=== PATIENT | female | born 1985 | race Caucasian/White ===

== ENCOUNTER 2016-08-09 12:22 | Emergency (ER) | payer OTHER ==
[~2016-08-09 12:22] MED LIST: ELIQ5TAB PO; TIZA2CAP3 PO; TOPI25CA PO
--- NOTE | 2016-08-09 14:46 | REP ---
Chest x-ray: Two views. History: Chest pain. . Comparison study: June 27, 2016 . Findings: The lungs are well inflated and free of infiltrate. The pleural angles are sharp. The heart size is normal. Pulmonary vasculature is not increased. No significant bony abnormality is seen. Impression: Negative chest x-ray. Signed by Loki Pacheco MD 08/09/2016 02:37 P
[2016-08-09 14:50] LABS: BASO # 0.1 K/mm3 (0.0-0.2); BASO % 0.9 % (0.0-1.0); EOS # 0.1 K/mm3 (0.0-0.50); EOS % 1.1 % (0.0-3.0); LARGE UNSTAINED CELL # 0.1 K/mm3 (0.0-0.4); LARGE UNSTAINED CELL % 1.2 % (0.0-4.0); LYMPH % 17.7 % (24.0-44.0); MEAN CORPUSCULAR HEMOGLOBIN 26.9 pg (27.0-33.0); MONO # 0.4 K/mm3 (0.0-0.8); MONO % 3.5 % (0.0-5.0); NEUTROPHILS # 8.2 K/mm3 (1.8-7.7); NEUTROPHILS % 75.7 % (36.0-66.0); PLATELET COUNT, AUTOMATED 312 k/mm3 (150-450); RED CELL DISTRIBUTION WIDTH 14.6 % (11.5-14.5); WHITE BLOOD COUNT 10.9 K/mm3 (4.0-10.0)
[2016-08-09 15:20] LABS: ANION GAP 9 MEQ/L (8-16); BLOOD UREA NITROGEN 10 MG/DL (7-18); CALCIUM LEVEL 8.9 MG/DL (8.5-10.1); CARBON DIOXIDE LEVEL 27 MEQ/L (21-32); CHLORIDE LEVEL 105 MEQ/L (98-107); CREATININE FOR GFR 0.66 MG/DL (0.55-1.02); GLOMERULAR FILTRATION RATE > 60.0 (>60); GLUCOSE, FASTING 84 MG/DL (70-105); POTASSIUM SERUM 3.7 MEQ/L (3.5-5.1); SODIUM LEVEL 141 MEQ/L (136-145)
[2016-08-09] MEDS ORDERED: fentaNYL 100 MCG/2 ML INJECTION (J3010) As Ordered ONE (15:30)
[2016-08-09] MEDS ORDERED: NORCO 5/325MG TABLET (BULK) As Ordered ONE (18:14)
--- NOTE | 2016-08-09 18:28 | EDDOCDS ---
Physician Documentation [facility] Name: Phyllis Kim Age: 30 yrs Sex: Female : 1985 Arrival Date: 08/09/2016 Time: 12:22 Bed I Private MD: Lu Dean E Disposition: 08/09 18:10 Critical Care: Critical care not applicable. le 18:11 A printed prescription for a controlled substance(s) was provided because [facility] is not able to accept EPCS. Disposition: 08/09/16 18:07 Discharged to Home/Self Care. Impression: Other chest pain. - Condition is Stable. - Discharge Instructions: Nonspecific Chest Pain, Pain Without a Known Cause. - Prescriptions for [place] 5- 325 mg Oral Tablet - take 1 tablet by ORAL route every 6 hours As needed MDD: 4 tabs; 6 tablet. - Medication Reconciliation, Local Pharmacy Hours form. - Follow up: Lu Dean; When: Call to arrange an appointment; Reason: Recheck today's complaints, Continuance of care. Follow up: Iogr Harding; When: Call to arrange an appointment; Reason: Recheck today's complaints, Continuance of care. - Problem is new. - Symptoms have improved. - Notes: Keep hydrated Return to the ED for any further concerns Historical: - Allergies: Bees; IVP dyeblurry vision, nausea and racing heart; Latex (Rash); Percocetdizzy, hot and nauseated; - Home Meds: 1. Advair Diskus Inhl 2 puff 2 times per day (Last dose: 08/09/2016 09:00) 2. albuterol sulfate 90 mcg/actuation Inhl HFAA 2 puffs every 4-6 hours (Last dose: 08/09/2016 11:00) 3. Eliquis 5 mg oral tab 1 tab 2 times per day - PMHx: Asthma; Concussion; Migraine Headaches; PE (March 21, 2016); - PSHx: none; - Social history: Smoking status: Patient states was never smoker of tobacco. No barriers to communication noted, The patient speaks fluent Greenlandic, Speaks appropriately for age. - Family history: Not pertinent. - : The pt / caregiver states he / she is on anticoagulants: Eliquis Home medication list is obtained from the patient. - Exposure Risk Screening:: None identified. NOTCHER: 12:31 LMP 07/16/2016 srm Vital Signs: 12:24 BP 104 / 77; Pulse 96; Resp 18 S; Temp 97.9(O); Pulse Ox 100% on R/A; Weight 74.84 kg / gr2 164.99 lbs (R); Height 5 ft. 4 in. (162.56 cm) (R); Pain 6/10; 15:56 BP 114 / 69; Pulse 64; Resp 18; Temp 98.1; Pulse Ox 99% ; Pain 4/10; jam1 15:57 Pain 4/10; dsf 18:24 BP 110 / 73; Pulse 98; Resp 18; Temp 99.4(O); Pulse Ox 99% on R/A; Pain 3/10; kc3 12:24 Body Mass Index 28.32 (74.84 kg, 162.56 cm) gr2 MDM: 12:33 ECG WITH READING ER PHYS+CARDIAG ordered. EDMS 14:01 Chest, 2 View (pa\E\lat) Ordered. EDMS 14:13 IV Saline Lock ordered. le 14:13 Undress patient appropriately for examination ordered. le 14:13 fentaNYL (PF) 25 mcg IVP once ordered. le 14:13 Basic Metabolic Profile Ordered. EDMS 14:13 CBC with Diff Ordered. EDMS 14:13 Cardiac Injury Profile Ordered. EDMS 14:13 D-Dimer Quant Ordered. EDMS 14:13 Troponin Ordered. EDMS 15:36 CBC with Diff Reviewed. le 15:36 Basic Metabolic Profile Reviewed. le 15:36 Cardiac Injury Profile Reviewed. le 15:36 Troponin Reviewed. le 15:36 Chest, 2 View (pa\E\lat) Reviewed. le 15:38 Misc. Nursing Order ordered. le 15:39 Financial registration complete. gjb 16:15 [facility] Payment Agreement was scanned into [employer] and attached to record. gjb 17:04 D-Dimer Quant Reviewed. le 18:11 HYDROcodone-acetaminophen 4 pack- 5 mg-325 mg 1 packets PO Per package directions; le Dispense with patient. 1 po q4h prn for pain ordered. Administered Medications: 15:36 Drug: fentaNYL (PF) 25 mcg [fentanyl (PF) 50 mcg/mL injection solution (0.5 mL)] Route: dsf IVP; Site: right antecubital; 15:57 Follow up: Pain 4/10 Adult; see charted VS dsf Signatures: Dispatcher [employer] Betzaida Painting RN RN Saundra Lopes, PASSENGER BOOKING CLERK PASSENGER BOOKING CLERK Carolee Greene RN RN kc3 Dalia Hernandez Desiree RN dsf The chart was reviewed and I authenticate all verbal orders and agree with the evaluation and treatment provided.Corrections: (The following items were deleted from the chart) 15:37 14:13 Furniture Upholsterer/Pulse Ox/q 30 min VS ordered. mya roque 15:37 14:13 Rhythm Strip to chart ordered. mya roque Attachments: 16:15 [facility] Payment Agreement sandra MTDD
--- NOTE | 2016-08-09 18:28 | EDDOCDS ---
Nurse's Notes [facility] Name: Phyllis Kim Age: 30 yrs Sex: Female : 1985 Arrival Date: 08/09/2016 Time: 12:22 Bed I9 Private MD: Lu Dean E Diagnosis: Other chest pain Presentation: 08/09 12:29 Presenting complaint: Patient states: left sided chest , ribs, back hurts when takes a srm deep breath. took advair and rescue inhaler to help. symptoms started 2 hours ago. Aspirin was not taken prior to arrival. Adult Sepsis Screening: The patient does not have new or worsening altered mentation. Patient's respiratory rate is less than 22. Systolic blood pressure is greater than 100. Patient has a qSOFA score of 0- Negative Sepsis Screen. Suicide/Homicide risk assessment- the patient denies having any suicidal and/or homicidal ideations and does not present with any other emotional, behavioral or mental health complaints. Status: The patient is a dependent. Transition of care: patient was not received from another setting of care. 12:29 Acuity: STEPHIE Level 3 srm 12:29 Method Of Arrival: Walkin/Carried/Asstd srm Triage Assessment: 12:31 General: Appears in no apparent distress, Behavior is appropriate for age, cooperative. srm Pain: Pain currently is 6 out of 10 on a pain scale. HIV screening NA for this visit Offered previously. Cardiovascular: Chest pain is described as Pain is 6 out of 10 on a pain scale. radiates episodes are continuous began 2 hours prior to arrival. HEALTHCARE CONSULTANT: 12:31 LMP 07/16/2016 srm Historical: - Allergies: Bees; IVP dyeblurry vision, nausea and racing heart; Latex (Rash); Percocetdizzy, hot and nauseated; - Home Meds: 1. Advair Diskus Inhl 2 puff 2 times per day (Last dose: 08/09/2016 09:00) 2. albuterol sulfate 90 mcg/actuation Inhl HFAA 2 puffs every 4-6 hours (Last dose: 08/09/2016 11:00) 3. Eliquis 5 mg oral tab 1 tab 2 times per day - PMHx: Asthma; Concussion; Migraine Headaches; PE (March 21, 2016); - PSHx: none; - Social history: Smoking status: Patient states was never smoker of tobacco. No barriers to communication noted, The patient speaks fluent Hungarian, Speaks appropriately for age. - Family history: Not pertinent. - : The pt / caregiver states he / she is on anticoagulants: Eliquis Home medication list is obtained from the patient. - Exposure Risk Screening:: None identified. Screenin:57 Screening information is obtained from the patient. Primary language is Hungarian. Fall jam1 risk: No risks identified. Assistance ADL's: requires no assistance with activities of daily living. Abuse/DV Screen: The patient / caregiver reports he/she is: not in a situation that causes fear, pain or injury. Nutritional screening: No deficits noted. Exposure Risk Screening: None identified. Advance Directives: Currently, there is no health care proxy. There is no active DNR order. There is no living will. There is no Power of Dynamics Ax Developer. Advance directive information has not previously been placed in an [facility] medical record. Further advance directive information is declined. home support is adequate. Assessment: 13:44 General: Appears uncomfortable, Behavior is appropriate for age, cooperative. Pain: dsf Location: left anterior chest wall Pain currently is 6 out of 10 on a pain scale. Pain radiates to left arm, back and left shoulder Quality of pain is described as pressure. Neurological: Level of Consciousness is awake, alert, Oriented to person, place, time. Cardiovascular: Capillary refill < 3 seconds Heart tones S1 S2 present Rhythm is regular. Respiratory: Airway is patent Respiratory effort is even, unlabored, Respiratory pattern is regular, symmetrical, Breath sounds are clear bilaterally. Reports pain with respiration since today. GI: Abdomen is non- distended Bowel sounds present X 4 quads. Abd is soft and non tender X 4 quads. Denies nausea. Derm: Skin is pink, warm & dry. 15:38 Adult Sepsis Screening: The patient does not have new or worsening altered mentation. dsf Patient's respiratory rate is less than 22. Systolic blood pressure is greater than 100. Patient has a qSOFA score of 0- Negative Sepsis Screen. General: Appears in no apparent distress, Behavior is appropriate for age, cooperative. Neurological: Level of Consciousness is awake, alert. Cardiovascular: Capillary refill < 3 seconds. Respiratory: Airway is patent Respiratory effort is even, unlabored, Respiratory pattern is regular, symmetrical. Derm: Skin is pink, warm & dry. 16:23 General: Appears in no apparent distress, Behavior is appropriate for age, cooperative. dsf Pain: Pain currently is 2 out of 10 on a pain scale. Neurological: Level of Consciousness is awake, alert. Cardiovascular: Capillary refill < 3 seconds. Respiratory: Airway is patent Respiratory effort is even, unlabored, Respiratory pattern is regular, symmetrical, Reports pain with respiration. Derm: Skin is pink, warm & dry. 17:36 Reassessment: patient states her pain is still 3/10 - lights down for patient comfort. kcs Respirations easy.. 18:23 General: Appears in no apparent distress, comfortable, Behavior is appropriate for age, kc3 cooperative. Pain: Pain currently is 3 out of 10 on a pain scale. Neurological: Level of Consciousness is awake, alert, obeys commands, Oriented to person, place, time. Respiratory: Respiratory effort is even, unlabored, Respiratory pattern is regular, symmetrical. Derm: Skin is pink, warm & dry. Vital Signs: 12:24 BP 104 / 77; Pulse 96; Resp 18 S; Temp 97.9(O); Pulse Ox 100% on R/A; Weight 74.84 kg gr2 (R); Height 5 ft. 4 in. (162.56 cm) (R); Pain 6/10; 15:56 BP 114 / 69; Pulse 64; Resp 18; Temp 98.1; Pulse Ox 99% ; Pain 4/10; jam1 15:57 Pain 4/10; dsf 18:24 BP 110 / 73; Pulse 98; Resp 18; Temp 99.4(O); Pulse Ox 99% on R/A; Pain 3/10; kc3 12:24 Body Mass Index 28.32 (74.84 kg, 162.56 cm) gr2 Vitals: 12:24 Log In Time: August 09, 2016 at 12:24. gr2 ED Course: 12:23 Patient visited by Roberto Olvera. gr2 12:23 Patient moved to Waiting gr2 12:24 Lu Dean is Private Physician. gr2 12:25 Patient visited by Roberto Olvera. gr2 12:25 Patient moved to Pre RCE gr2 12:30 Triage Initiated srm 12:32 Patient moved to PD srm 12:39 EKG done. (by ED staff). Reviewed by Justen Nunez MD. ar3 12:42 Patient visited by Darren Carrillo PCA. mdr 12:43 Patient visited by Juli Singh PCA. ar3 12:45 Patient moved to Pre RCE mb9 13:28 Saundra Griffith FNP is PHCP. le 13:30 Patient moved to I9 srm 13:45 Patient visited by Flavia Muir RN. dsf 14:02 Patient visited by Saundra Griffith FNP. le 14:02 Patient visited by Saundra Griffith FNP. le 14:40 Basic Metabolic Profile Sent. jf3 14:40 CBC with Diff Sent. jf3 14:40 Cardiac Injury Profile Sent. jf3 14:40 D-Dimer Quant Sent. jf3 14:40 Troponin Sent. jf3 14:53 Chest, 2 View (pa\E\lat) Returned. EDMS 15:06 Patient moved to 20 dsf 15:09 Patient moved to I dsf 15:16 Pt greeted and oriented to ED. Patient advised of names of staff involved in care, jam1 location of call [place], wait times and NPO status. Patient has correct armband on for positive identification. Placed in gown. Bed in low position. Call light in reach. Side rails up X2. Door closed. 15:38 Patient visited by Flavia Muir RN. dsf 16:15 [facility] Payment Agreement was scanned into [employer] and attached to record. gjb 16:22 Patient has correct armband on for positive identification. Bed in low position. Call jam1 light in reach. Side rails up X 1. Door closed. 16:24 Patient visited by Flavia Muir RN. dsf 17:30 Patient has correct armband on for positive identification. Bed in low position. Call jam1 light in reach. Side rails up X 1. Door closed. 17:49 Patient visited by Flavia Muir RN. dsf 18:07 Lu Dean is Referral Physician. le 18:07 Igor Harding is Referral Physician. le 18:25 Inserted saline lock: 20 gauge in right antecubital area and blood collected. The kc3 patient tolerated the procedure well. performed by Flavia Muir RN. No procedures done that require assistance. 18:26 Discontinued IV lock intact, bleeding controlled, pressure dressing applied, No kc3 redness/swelling at site. 18:27 The patient / caregiver is instructed regarding the plan of care and ED course. Pulse kc3 ox on. Administered Medications: 15:36 Drug: fentaNYL (PF) 25 mcg [fentanyl (PF) 50 mcg/mL injection solution (0.5 mL)] Route: dsf IVP; Site: right antecubital; 15:57 Follow up: Pain 410 Adult; see charted VS dsf Intake: Order Results: Lab Order: Basic Metabolic Profile; SPEC'M 08/09/16 14:39 Test: GLUCOSE, FASTING; Value: 84; Range: 70-105; Units: MG/DL; Status: F Test: BLOOD UREA NITROGEN; Value: 10; Range: 7-18; Units: MG/DL; Status: F Test: CREATININE FOR GFR; Value: 0.66; Range: 0.55-1.02; Units: MG/DL; Status: F Test: GLOMERULAR FILTRATION RATE; Value: > 60.0; Range: >60; Status: F Test: SODIUM LEVEL; Value: 141; Range: 136-145; Units: MEQ/L; Status: F Test: POTASSIUM SERUM; Value: 3.7; Range: 3.5-5.1; Units: MEQ/L; Status: F Test: CHLORIDE LEVEL; Value: 105; Range: 98-107; Units: MEQ/L; Status: F Test: CARBON DIOXIDE LEVEL; Value: 27; Range: 21-32; Units: MEQ/L; Status: F Test: ANION GAP; Value: 9; Range: 8-16; Units: MEQ/L; Status: F Test: CALCIUM LEVEL; Value: 8.9; Range: 8.5-10.1; Units: MG/DL; Status: F Test Note: ; Units are mL/min/1.73 m2 Chronic Kidney Disease Staging per NKF: Stage I & II GFR >=60 Normal to Mildly Decreased Stage III GFR 30-59 Moderately Decreased Stage IV GFR 15-29 Severely Decreased Stage V GFR <15 Very Little GFR Left ESRD GFR <15 on CHAIN MENDER Lab Order: CBC with Diff; SPEC'M 08/09/16 14:39 Test: WHITE BLOOD COUNT; Value: 10.9; Range: 4.0-10.0; Abnormal: Above high normal; Units: K/mm3; Status: F Test: RED BLOOD COUNT; Value: 4.45; Range: 4.00-5.40; Units: M/mm3; Status: F Test: HEMOGLOBIN; Value: 12.0; Range: 12.0-16.0; Units: g/dl; Status: F Test: HEMATOCRIT; Value: 37.4; Range: 36.0-47.0; Units: %; Status: F Test: MEAN CORPUSCULAR VOLUME; Value: 84.0; Range: 80.0-96.0; Units: fl; Status: F Test: MEAN CORPUSCULAR HEMOGLOBIN; Value: 26.9; Range: 27.0-33.0; Abnormal: Below low normal; Units: pg; Status: F Test: MEAN CORPUSCULAR HGB CONC; Value: 32.0; Range: 32.0-36.5; Units: g/dl; Status: F Test: RED CELL DISTRIBUTION WIDTH; Value: 14.6; Range: 11.5-14.5; Abnormal: Above high normal; Units: %; Status: F Test: PLATELET COUNT, AUTOMATED; Value: 312; Range: 150-450; Units: k/mm3; Status: F Test: NEUTROPHILS %; Value: 75.7; Range: 36.0-66.0; Abnormal: Above high normal; Units: %; Status: F Test: LYMPH %; Value: 17.7; Range: 24.0-44.0; Abnormal: Below low normal; Units: %; Status: F Test: MONO %; Value: 3.5; Range: 0.0-5.0; Units: %; Status: F Test: EOS %; Value: 1.1; Range: 0.0-3.0; Units: %; Status: F Test: BASO %; Value: 0.9; Range: 0.0-1.0; Units: %; Status: F Test: LARGE UNSTAINED CELL %; Value: 1.2; Range: 0.0-4.0; Units: %; Status: F Test: NEUTROPHILS #; Value: 8.2; Range: 1.8-7.7; Abnormal: Above high normal; Units: K/mm3; Status: F Test: LYMPH #; Value: 2.0; Range: 1.5-4.5; Units: K/mm3; Status: F Test: MONO #; Value: 0.4; Range: 0.0-0.8; Units: K/mm3; Status: F Test: EOS #; Value: 0.1; Range: 0.0-0.50; Units: K/mm3; Status: F Test: BASO #; Value: 0.1; Range: 0.0-0.2; Units: K/mm3; Status: F Test: LARGE UNSTAINED CELL #; Value: 0.1; Range: 0.0-0.4; Units: K/mm3; Status: F Lab Order: Cardiac Injury Profile; [facility] 08/09/16 14:39 Test: CPK CREATINE PHOSPHOKINASE; Value: 47; Range: 26-192; Units: U/L; Status: F Test: CK-MB VALUE MASS; Value: 1.0; Range: 0.0-3.6; Units: NG/ML; Status: F Test: MB/CK RELATIVE INDEX; Value: 2.12; Range: < OR =4; Status: F Test Note: ; DIAGNOSIS CRITERIA MMB ng/ml Relative Index (RI) NON-AMI < or = 5 N/A QUACH ZONE > 5 < or = 4 AMI > 5 > 4 Lab Order: D-Dimer Quant; [facility] 08/09/16 14:39 Test: D-DIMER QUANT; Value: < 270.0; Range: <500; Units: ng/ml; Status: F Lab Order: Troponin; [facility] 08/09/16 14:39 Test: TROPONIN I; Value: < 0.02; Range: < 0.10; Units: NG/ML; Status: F Test Note: ; Troponin I Reference Interval for [employer] LOCI: 99th Percentile= 0.00-0.045 ng/ml Risk Stratification: <= 0.10 ng/ml Decreased Risk for Adverse Clinical Events. 0.10-1.50 ng/ml Increased Risk for Adverse Clinical Events. Evaluation of additional criterion and/or repeat testing in 2-6 hours is suggested to rule out myocardial damage. >= 1.50 ng/ml Indicative of Myocardial Injury. Radiology Order: Chest, 2 View (pa\E\lat) Test: Chest, 2 View (pa\E\lat) REASON FOR EXAMINATION: Chest Pain; Chest x-ray: Two views.; ; History: Chest pain. .; ; Comparison study: June 27, 2016 .; ; Findings: The lungs are well inflated and free of infiltrate. The pleural; angles are sharp. The heart size is normal. Pulmonary vasculature is not; increased. No significant bony abnormality is seen.; ; Impression:; ; Negative chest x-ray.; ; ; Signed by; Loki Pacheco MD 08/09/2016 02:37 P; Outcome: 18:07 Discharge ordered by Provider. le 18:25 Discharge Assessment: Patient awake, alert and oriented x 3. No cognitive and/or kc3 functional deficits noted. Patient verbalized understanding of disposition instructions. patient administered narcotics - yes. Pt provided with safe discharge. The following High Risk Discharge criteria are identified: None. Discharged to home. Condition: stable. Discharge instructions given to patient, Instructed on discharge instructions, follow up and referral plans. medication usage, Demonstrated understanding of instructions, medications, Pt was receptive of discharge instructions/ teaching. Prescriptions given X 1. No special radiology studies were completed. Property :Personal belongings accompany Pt. 18:27 Patient left the ED. kc3 Signatures: Dispatcher [employer] EDMS Farheen Bautista RN RN kcs Michelson, Staci, RN RN Ondina Alonzo, SPLICING MACHINE OPERATOR SPLICING MACHINE OPERATOR jam1 Saundra Griffith, PLASTIC TILE SETTER PLASTIC TILE SETTER Juli Moreno, SPLICING MACHINE OPERATOR SPLICING MACHINE OPERATOR ar3 Flavia Muir RN RN dsf Roberto Olvera gr2 Orestes Umanzor,RN RN mb9 Darren Carrillo, SPLICING MACHINE OPERATOR SPLICING MACHINE OPERATOR mdr Carolee Beverly RN RN kc3 Ashkan Samayoa,KEN RN jf3 Dalia Hernandez Corrections: (The following items were deleted from the chart) 12:43 12:41 EKG done. (by ED staff). Reviewed by Justen Nunez MD mdr ar3 16:35 15:56 BP 114 / 69; Pulse 64bpm; Resp 18bpm; Pulse Ox 99%; Temp 88F; Pain 4/10; jam1 jam1 MTDD
--- NOTE | 2016-08-10 07:57 | ECGEPIP ---
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
--- NOTE | 2016-08-11 19:28 | EDDOCDS ---
Physician Documentation [facility] Name: Phyllis Kim Age: 30 yrs Sex: Female : 1985 Arrival Date: 08/09/2016 Time: 12:22 Bed I Private MD: Lu Dean E Disposition: 08/09 18:10 Critical Care: Critical care not applicable. le 18:11 A printed prescription for a controlled substance(s) was provided because [facility] is not able to accept EPCS. Disposition: 08/09/16 18:07 Discharged to Home/Self Care. Impression: Other chest pain. - Condition is Stable. - Discharge Instructions: Nonspecific Chest Pain, Pain Without a Known Cause. - Prescriptions for [place] 5- 325 mg Oral Tablet - take 1 tablet by ORAL route every 6 hours As needed MDD: 4 tabs; 6 tablet. - Medication Reconciliation, Local Pharmacy Hours form. - Follow up: Lu Dean; When: Call to arrange an appointment; Reason: Recheck today's complaints, Continuance of care. Follow up: Igor Harding; When: Call to arrange an appointment; Reason: Recheck today's complaints, Continuance of care. - Problem is new. - Symptoms have improved. - Notes: Keep hydrated Return to the ED for any further concerns Historical: - Allergies: Bees; IVP dyeblurry vision, nausea and racing heart; Latex (Rash); Percocetdizzy, hot and nauseated; - Home Meds: 1. Advair Diskus Inhl 2 puff 2 times per day (Last dose: 08/09/2016 09:00) 2. albuterol sulfate 90 mcg/actuation Inhl HFAA 2 puffs every 4-6 hours (Last dose: 08/09/2016 11:00) 3. Eliquis 5 mg oral tab 1 tab 2 times per day - PMHx: Asthma; Concussion; Migraine Headaches; PE (March 21, 2016); - PSHx: none; - Social history: Smoking status: Patient states was never smoker of tobacco. No barriers to communication noted, The patient speaks fluent Malay, Speaks appropriately for age. - Family history: Not pertinent. - : The pt / caregiver states he / she is on anticoagulants: Eliquis Home medication list is obtained from the patient. - Exposure Risk Screening:: None identified. GROMMET MACHINE OPERATOR: 12:31 LMP 07/16/2016 [facility] Vital Signs: 12:24 BP 104 / 77; Pulse 96; Resp 18 S; Temp 97.9(O); Pulse Ox 100% on R/A; Weight 74.84 kg / gr2 164.99 lbs (R); Height 5 ft. 4 in. (162.56 cm) (R); Pain 6/10; 15:56 BP 114 / 69; Pulse 64; Resp 18; Temp 98.1; Pulse Ox 99% ; Pain 4/10; jam1 15:57 Pain 4/10; dsf 18:24 BP 110 / 73; Pulse 98; Resp 18; Temp 99.4(O); Pulse Ox 99% on R/A; Pain 3/10; kc3 12:24 Body Mass Index 28.32 (74.84 kg, 162.56 cm) gr2 MDM: 12:33 ECG WITH READING ER PHYS+CARDIAG ordered. EDMS 14:01 Chest, 2 View (pa\E\lat) Ordered. EDMS 14:13 IV Saline Lock ordered. le 14:13 Undress patient appropriately for examination ordered. le 14:13 fentaNYL (PF) 25 mcg IVP once ordered. le 14:13 Basic Metabolic Profile Ordered. EDMS 14:13 CBC with Diff Ordered. EDMS 14:13 Cardiac Injury Profile Ordered. EDMS 14:13 D-Dimer Quant Ordered. EDMS 14:13 Troponin Ordered. EDMS 15:36 CBC with Diff Reviewed. le 15:36 Basic Metabolic Profile Reviewed. le 15:36 Cardiac Injury Profile Reviewed. le 15:36 Troponin Reviewed. le 15:36 Chest, 2 View (pa\E\lat) Reviewed. le 15:38 Misc. Nursing Order ordered. le 15:39 Financial registration complete. gjb 16:15 [facility] [place] Agreement was scanned into S[employer]cery and attached to record. gjb 17:04 D-Dimer Quant Reviewed. le 18:11 HYDROcodone-acetaminophen 4 pack- 5 mg-325 mg 1 packets PO Per package directions; le Dispense with patient. 1 po q4h prn for pain ordered. 08/10 09:18 T-Sheet-- Draft Copy was scanned into Sourcery and attached to record. gb 09:18 ECG/EKG was scanned into Sourcery and attached to record. gb Administered Medications: 08/09 15:36 Drug: fentaNYL (PF) 25 mcg [fentanyl (PF) 50 mcg/mL injection solution (0.5 mL)] Route: dsf IVP; Site: right antecubital; 15:57 Follow up: Pain 4/10 Adult; see charted VS dsf 18:30 Drug: HYDROcodone-acetaminophen 4 pack- 1 packets [hydrocodone 5 mg-acetaminophen 325 kc3 mg tablet (1 tabs)] {Co-Signature: dsf (Flavia Muir RN).} Route: PO; Signatures: Dispatcher MedHost EDMS Betzaida Fu, RN KEN srm Ioana Ortega, Reg Reg Saundra Mroeno, GARNETT MACHINE OPERATOR HELPER GARNETT MACHINE OPERATOR HELPER Carolee Greene RN RN kc3 Dalia Hernandez Desiree RN dsf Desiree Fuller RN dsf The chart was reviewed and I authenticate all verbal orders and agree with the evaluation and treatment provided.Corrections: (The following items were deleted from the chart) 15:37 14:13 Distributor Cleaner/Pulse Ox/q 30 min VS ordered. mya roque 15:37 14:13 Rhythm Strip to chart ordered. mya roque Attachments: 16:15 [facility] Payment Agreement [facility] 08/10 09:18 T-Sheet-- Draft Copy :18 ECG/EKG Chart Complete MTDD
--- NOTE | 2016-08-11 19:28 | EDDOCDS ---
Nurse's Notes [facility] Name: Mtat Machuca Age: 30 yrs Sex: Female : 1985 Arrival Date: 08/09/2016 Time: 12:22 Bed I9 Private MD: Lu Dean E Diagnosis: Other chest pain Presentation: 08/09 12:29 Presenting complaint: Patient states: left sided chest , ribs, back hurts when takes a srm deep breath. took advair and rescue inhaler to help. symptoms started 2 hours ago. Aspirin was not taken prior to arrival. Adult Sepsis Screening: The patient does not have new or worsening altered mentation. Patient's respiratory rate is less than 22. Systolic blood pressure is greater than 100. Patient has a qSOFA score of 0- Negative Sepsis Screen. Suicide/Homicide risk assessment- the patient denies having any suicidal and/or homicidal ideations and does not present with any other emotional, behavioral or mental health complaints. Status: The patient is a dependent. Transition of care: patient was not received from another setting of care. 12:29 Acuity: STEPHIE Level 3 srm 12:29 Method Of Arrival: Walkin/Carried/Asstd srm Triage Assessment: 12:31 General: Appears in no apparent distress, Behavior is appropriate for age, cooperative. srm Pain: Pain currently is 6 out of 10 on a pain scale. HIV screening NA for this visit Offered previously. Cardiovascular: Chest pain is described as Pain is 6 out of 10 on a pain scale. radiates episodes are continuous began 2 hours prior to arrival. 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 Advair Diskus Inhl 2 puff 2 times per day (Last dose: 08/09/2016 09:00) 2. albuterol sulfate 90 mcg/actuation Inhl HFAA 2 puffs every 4-6 hours (Last dose: 08/09/2016 11:00) 3. Eliquis 5 mg oral tab 1 tab 2 times per day - PMHx: Asthma; Concussion; Migraine Headaches; PE (March 21, 2016); - PSHx: none; - Social history: Smoking status: Patient states was never smoker of tobacco. No barriers to communication noted, The patient speaks fluent Croatian, Speaks appropriately for age. - Family history: Not pertinent. - : The pt / caregiver states he / she is on anticoagulants: Eliquis Home medication list is obtained from the patient. - Exposure Risk Screening:: None identified. Screenin:57 Screening information is obtained from the patient. Primary language is Croatian. Fall jam1 risk: No risks identified. Assistance ADL's: requires no assistance with activities of daily living. Abuse/DV Screen: The patient / caregiver reports he/she is: not in a situation that causes fear, pain or injury. Nutritional screening: No deficits noted. Exposure Risk Screening: None identified. Advance Directives: Currently, there is no health care proxy. There is no active DNR order. There is no living will. There is no Power of Brick Unloader Tender. Advance directive information has not previously been placed in an [facility] medical record. Further advance directive information is declined. home support is adequate. Assessment: 13:44 General: Appears uncomfortable, Behavior is appropriate for age, cooperative. Pain: dsf Location: left anterior chest wall Pain currently is 6 out of 10 on a pain scale. Pain radiates to left arm, back and left shoulder Quality of pain is described as pressure. Neurological: Level of Consciousness is awake, alert, Oriented to person, place, time. Cardiovascular: Capillary refill < 3 seconds Heart tones S1 S2 present Rhythm is regular. Respiratory: Airway is patent Respiratory effort is even, unlabored, Respiratory pattern is regular, symmetrical, Breath sounds are clear bilaterally. Reports pain with respiration since today. GI: Abdomen is non- distended Bowel sounds present X 4 quads. Abd is soft and non tender X 4 quads. Denies nausea. Derm: Skin is pink, warm & dry. 15:38 Adult Sepsis Screening: The patient does not have new or worsening altered mentation. dsf Patient's respiratory rate is less than 22. Systolic blood pressure is greater than 100. Patient has a qSOFA score of 0- Negative Sepsis Screen. General: Appears in no apparent distress, Behavior is appropriate for age, cooperative. Neurological: Level of Consciousness is awake, alert. Cardiovascular: Capillary refill < 3 seconds. Respiratory: Airway is patent Respiratory effort is even, unlabored, Respiratory pattern is regular, symmetrical. Derm: Skin is pink, warm & dry. 16:23 General: Appears in no apparent distress, Behavior is appropriate for age, cooperative. dsf Pain: Pain currently is 2 out of 10 on a pain scale. Neurological: Level of Consciousness is awake, alert. Cardiovascular: Capillary refill < 3 seconds. Respiratory: Airway is patent Respiratory effort is even, unlabored, Respiratory pattern is regular, symmetrical, Reports pain with respiration. Derm: Skin is pink, warm & dry. 17:36 Reassessment: patient states her pain is still 3/10 - lights down for patient comfort. kcs Respirations easy.. 18:23 General: Appears in no apparent distress, comfortable, Behavior is appropriate for age, kc3 cooperative. Pain: Pain currently is 3 out of 10 on a pain scale. Neurological: Level of Consciousness is awake, alert, obeys commands, Oriented to person, place, time. Respiratory: Respiratory effort is even, unlabored, Respiratory pattern is regular, symmetrical. Derm: Skin is pink, warm & dry. Vital Signs: 12:24 BP 104 / 77; Pulse 96; Resp 18 S; Temp 97.9(O); Pulse Ox 100% on R/A; Weight 74.84 kg gr2 (R); Height 5 ft. 4 in. (162.56 cm) (R); Pain 6/10; 15:56 BP 114 / 69; Pulse 64; Resp 18; Temp 98.1; Pulse Ox 99% ; Pain 4/10; jam1 15:57 Pain 4/10; dsf 18:24 BP 110 / 73; Pulse 98; Resp 18; Temp 99.4(O); Pulse Ox 99% on R/A; Pain 3/10; kc3 12:24 Body Mass Index 28.32 (74.84 kg, 162.56 cm) gr2 Vitals: 12:24 Log In Time: August 09, 2016 at 12:24. gr2 ED Course: 12:23 Patient visited by Roberto Olvera. gr2 12:23 Patient moved to Waiting gr2 12:24 Lu Dean is Private Physician. gr2 12:25 Patient visited by Roberto Olvera. gr2 12:25 Patient moved to Pre RCE gr2 12:30 Triage Initiated srm 12:32 Patient moved to PD srm 12:39 EKG done. (by ED staff). Reviewed by Justen Nunez MD. ar3 12:42 Patient visited by Darren Carrillo PCA. mdr 12:43 Patient visited by Juli Singh PCA. ar3 12:45 Patient moved to Pre RCE mb9 13:28 Saundra Griffith FNP is PHCP. le 13:30 Patient moved to I9 srm 13:45 Patient visited by Flavia Muir RN. dsf 14:02 Patient visited by Saundra Griffith FNP. le 14:02 Patient visited by Saundra Griffith FNP. le 14:40 Basic Metabolic Profile Sent. jf3 14:40 CBC with Diff Sent. jf3 14:40 Cardiac Injury Profile Sent. jf3 14:40 D-Dimer Quant Sent. jf3 14:40 Troponin Sent. jf3 14:53 Chest, 2 View (pa\E\lat) Returned. EDMS 15:06 Patient moved to 20 dsf 15:09 Patient moved to I dsf 15:16 Pt greeted and oriented to ED. Patient advised of names of staff involved in care, jam1 location of call [place], wait times and NPO status. Patient has correct armband on for positive identification. Placed in gown. Bed in low position. Call light in reach. Side rails up X2. Door closed. 15:38 Patient visited by Flavia Muir RN. dsf 16:15 [facility] Payment Agreement was scanned into [employer] and attached to record. gjb 16:22 Patient has correct armband on for positive identification. Bed in low position. Call jam1 light in reach. Side rails up X 1. Door closed. 16:24 Patient visited by Flavia Muir RN. dsf 17:30 Patient has correct armband on for positive identification. Bed in low position. Call jam1 light in reach. Side rails up X 1. Door closed. 17:49 Patient visited by Flavia Muir RN. dsf 18:07 Lu Dean is Referral Physician. le 18:07 Igor Harding is Referral Physician. le 18:25 Inserted saline lock: 20 gauge in right antecubital area and blood collected. The kc3 patient tolerated the procedure well. performed by Flavia Muir RN. No procedures done that require assistance. 18:26 Discontinued IV lock intact, bleeding controlled, pressure dressing applied, No kc3 redness/swelling at site. 18:27 The patient / caregiver is instructed regarding the plan of care and ED course. Pulse kc3 ox on. 08/10 08:22 EKG-ADULT Returned. EDMS 09:18 T-Sheet-- Draft Copy was scanned into [employer] and attached to record. gb 09:18 ECG/EKG was scanned into [employer] and attached to record. gb Administered Medications: 08/09 15:36 Drug: fentaNYL (PF) 25 mcg [fentanyl (PF) 50 mcg/mL injection solution (0.5 mL)] Route: dsf IVP; Site: right antecubital; 15:57 Follow up: Pain 10/31 Adult; see charted VS dsf 18:30 Drug: HYDROcodone-acetaminophen 4 pack- 1 packets [hydrocodone 5 mg-acetaminophen 325 kc3 mg tablet (1 tabs)] {Co-Signature: dsf (Flavia Muir RN).} Route: PO; Intake: Order Results: Lab Order: Basic Metabolic Profile; SPEC'M 08/09/16 14:39 Test: GLUCOSE, FASTING; Value: 84; Range: 70-105; Units: MG/DL; Status: F Test: BLOOD UREA NITROGEN; Value: 10; Range: 7-18; Units: MG/DL; Status: F Test: CREATININE FOR GFR; Value: 0.66; Range: 0.55-1.02; Units: MG/DL; Status: F Test: GLOMERULAR FILTRATION RATE; Value: > 60.0; Range: >60; Status: F Test: SODIUM LEVEL; Value: 141; Range: 136-145; Units: MEQ/L; Status: F Test: POTASSIUM SERUM; Value: 3.7; Range: 3.5-5.1; Units: MEQ/L; Status: F Test: CHLORIDE LEVEL; Value: 105; Range: 98-107; Units: MEQ/L; Status: F Test: CARBON DIOXIDE LEVEL; Value: 27; Range: 21-32; Units: MEQ/L; Status: F Test: ANION GAP; Value: 9; Range: 8-16; Units: MEQ/L; Status: F Test: CALCIUM LEVEL; Value: 8.9; Range: 8.5-10.1; Units: MG/DL; Status: F Test Note: ; Units are mL/min/1.73 m2 Chronic Kidney Disease Staging per NKF: Stage I & II GFR >=60 Normal to Mildly Decreased Stage III GFR 30-59 Moderately Decreased Stage IV GFR 15-29 Severely Decreased Stage V GFR <15 Very Little GFR Left ESRD GFR <15 on HR ADMINISTRATIVE ASSISTANT Lab Order: CBC with Diff; SPEC'M 08/09/16 14:39 Test: WHITE BLOOD COUNT; Value: 10.9; Range: 4.0-10.0; Abnormal: Above high normal; Units: K/mm3; Status: F Test: RED BLOOD COUNT; Value: 4.45; Range: 4.00-5.40; Units: M/mm3; Status: F Test: HEMOGLOBIN; Value: 12.0; Range: 12.0-16.0; Units: g/dl; Status: F Test: HEMATOCRIT; Value: 37.4; Range: 36.0-47.0; Units: %; Status: F Test: MEAN CORPUSCULAR VOLUME; Value: 84.0; Range: 80.0-96.0; Units: fl; Status: F Test: MEAN CORPUSCULAR HEMOGLOBIN; Value: 26.9; Range: 27.0-33.0; Abnormal: Below low normal; Units: pg; Status: F Test: MEAN CORPUSCULAR HGB CONC; Value: 32.0; Range: 32.0-36.5; Units: g/dl; Status: F Test: RED CELL DISTRIBUTION WIDTH; Value: 14.6; Range: 11.5-14.5; Abnormal: Above high normal; Units: %; Status: F Test: PLATELET COUNT, AUTOMATED; Value: 312; Range: 150-450; Units: k/mm3; Status: F Test: NEUTROPHILS %; Value: 75.7; Range: 36.0-66.0; Abnormal: Above high normal; Units: %; Status: F Test: LYMPH %; Value: 17.7; Range: 24.0-44.0; Abnormal: Below low normal; Units: %; Status: F Test: MONO %; Value: 3.5; Range: 0.0-5.0; Units: %; Status: F Test: EOS %; Value: 1.1; Range: 0.0-3.0; Units: %; Status: F Test: BASO %; Value: 0.9; Range: 0.0-1.0; Units: %; Status: F Test: LARGE UNSTAINED CELL %; Value: 1.2; Range: 0.0-4.0; Units: %; Status: F Test: NEUTROPHILS #; Value: 8.2; Range: 1.8-7.7; Abnormal: Above high normal; Units: K/mm3; Status: F Test: LYMPH #; Value: 2.0; Range: 1.5-4.5; Units: K/mm3; Status: F Test: MONO #; Value: 0.4; Range: 0.0-0.8; Units: K/mm3; Status: F Test: EOS #; Value: 0.1; Range: 0.0-0.50; Units: K/mm3; Status: F Test: BASO #; Value: 0.1; Range: 0.0-0.2; Units: K/mm3; Status: F Test: LARGE UNSTAINED CELL #; Value: 0.1; Range: 0.0-0.4; Units: K/mm3; Status: F Lab Order: Cardiac Injury Profile; SPEC08/09/16 14:39 Test: CPK CREATINE PHOSPHOKINASE; Value: 47; Range: 26-192; Units: U/L; Status: F Test: CK-MB VALUE MASS; Value: 1.0; Range: 0.0-3.6; Units: NG/ML; Status: F Test: MB/CK RELATIVE INDEX; Value: 2.12; Range: < OR =4; Status: F Test Note: ; DIAGNOSIS CRITERIA MMB ng/ml Relative Index (RI) NON-AMI < or = 5 N/A QUACH ZONE > 5 < or = 4 AMI > 5 > 4 Lab Order: D-Dimer Quant; 08/09/16 14:39 Test: D-DIMER QUANT; Value: < 270.0; Range: <500; Units: ng/ml; Status: F Lab Order: Troponin; [facility]08/09/16 14:39 Test: TROPONIN I; Value: < 0.02; Range: < 0.10; Units: NG/ML; Status: F Test Note: ; Troponin I Reference Interval for [employer] [facility] LOCI: 99th Percentile= 0.00-0.045 ng/ml Risk Stratification: <= 0.10 ng/ml Decreased Risk for Adverse Clinical Events. 0.10-1.50 ng/ml Increased Risk for Adverse Clinical Events. Evaluation of additional criterion and/or repeat testing in 2-6 hours is suggested to rule out myocardial damage. >= 1.50 ng/ml Indicative of Myocardial Injury. 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 .; ; Comparison study: June 27, 2016 .; ; Findings: The lungs are well inflated and free of infiltrate. The pleural; angles are sharp. The heart size is normal. Pulmonary vasculature is not; increased. No significant bony abnormality is seen.; ; Impression:; ; Negative chest x-ray.; ; ; Signed by; Loki Pacheco MD 08/09/2016 02:37 P; Outcome: 18:07 Discharge ordered by Provider. le 18:25 Discharge Assessment: Patient awake, alert and oriented x 3. No cognitive and/or kc3 functional deficits noted. Patient verbalized understanding of disposition instructions. patient administered narcotics - yes. Pt provided with safe discharge. The following High Risk Discharge criteria are identified: None. Discharged to home. Condition: stable. Discharge instructions given to patient, Instructed on discharge instructions, follow up and referral plans. medication usage, Demonstrated understanding of instructions, medications, Pt was receptive of discharge instructions/ teaching. Prescriptions given X 1. No special radiology studies were completed. Property :Personal belongings accompany Pt. 18:27 Patient left the ED. kc3 Signatures: Dispatcher Med[employer] EDMS Farheen Bautista, RN RN Betzaida Noble, RN RN srm Ondina Quintanilla, NETWORK CONSULTANT NETWORK CONSULTANT jam1 Ioana Ortega, Reg Reg gb Nacho, Saundra, TALLOW PUMPER TALLOW PUMPER le Samantha, Juli, NETWORK CONSULTANT NETWORK CONSULTANT ar3 lFavia Muir RN RN dsf Roberto Olvera gr2 Orestes Umanzor,RN RN mb9 Darren Carrillo, NETWORK CONSULTANT NETWORK CONSULTANT mdr Carolee Beverly RN RN kc3 Ashkan Samayoa RN RN jf3 Dalia Hernandezb Flavia Muir RN dsf Corrections: (The following items were deleted from the chart) 12:43 12:41 EKG done. (by ED staff). Reviewed by Justen ayala ar3 16:35 15:56 BP 114 / 69; Pulse 64bpm; Resp 18bpm; Pulse Ox 99%; Temp 88F; Pain 4/10; jam1 jam1 Chart Complete MTDD
--- NOTE | 2016-08-11 19:29 | EDDOCDS ---
Physician Documentation [facility] Name: Phyllis Kim Age: 30 yrs Sex: Female : 1985 Arrival Date: 08/09/2016 Time: 12:22 Bed I Private MD: Lu Dean E Disposition: 08/09 18:10 Critical Care: Critical care not applicable. le 18:11 A printed prescription for a controlled substance(s) was provided because [facility] is not able to accept EPCS. Disposition: 08/09/16 18:07 Discharged to Home/Self Care. Impression: Other chest pain. - Condition is Stable. - Discharge Instructions: Nonspecific Chest Pain, Pain Without a Known Cause. - Prescriptions for Mobile 5- 325 mg Oral Tablet - take 1 tablet by ORAL route every 6 hours As needed MDD: 4 tabs; 6 tablet. - Medication Reconciliation, Local Pharmacy Hours form. - Follow up: Lu Dean; When: Call to arrange an appointment; Reason: Recheck today's complaints, Continuance of care. Follow up: Igor Harding; When: Call to arrange an appointment; Reason: Recheck today's complaints, Continuance of care. - Problem is new. - Symptoms have improved. - Notes: Keep hydrated Return to the ED for any further concerns Historical: - Allergies: Bees; IVP dyeblurry vision, nausea and racing heart; Latex (Rash); Percocetdizzy, hot and nauseated; - Home Meds: 1. Advair Diskus Inhl 2 puff 2 times per day (Last dose: 08/09/2016 09:00) 2. albuterol sulfate 90 mcg/actuation Inhl HFAA 2 puffs every 4-6 hours (Last dose: 08/09/2016 11:00) 3. Eliquis 5 mg oral tab 1 tab 2 times per day - PMHx: Asthma; Concussion; Migraine Headaches; PE (March 21, 2016); - PSHx: none; - Social history: Smoking status: Patient states was never smoker of tobacco. No barriers to communication noted, The patient speaks fluent Tajik, Speaks appropriately for age. - Family history: Not pertinent. - : The pt / caregiver states he / she is on anticoagulants: Eliquis Home medication list is obtained from the patient. - Exposure Risk Screening:: None identified. 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 4 in. (162.56 cm) (R); Pain 6/10; 15:56 BP 114 / 69; Pulse 64; Resp 18; Temp 98.1; Pulse Ox 99% ; Pain 4/10; jam1 15:57 Pain 4/10; dsf 18:24 BP 110 / 73; Pulse 98; Resp 18; Temp 99.4(O); Pulse Ox 99% on R/A; Pain 3/10; kc3 12:24 Body Mass Index 28.32 (74.84 kg, 162.56 cm) gr2 MDM: 12:33 ECG WITH READING ER PHYS+CARDIAG ordered. EDMS 14:01 Chest, 2 View (pa\E\lat) Ordered. EDMS 14:13 IV Saline Lock ordered. le 14:13 Undress patient appropriately for examination ordered. le 14:13 fentaNYL (PF) 25 mcg IVP once ordered. le 14:13 Basic Metabolic Profile Ordered. EDMS 14:13 CBC with Diff Ordered. EDMS 14:13 Cardiac Injury Profile Ordered. EDMS 14:13 D-Dimer Quant Ordered. EDMS 14:13 Troponin Ordered. EDMS 15:36 CBC with Diff Reviewed. le 15:36 Basic Metabolic Profile Reviewed. le 15:36 Cardiac Injury Profile Reviewed. le 15:36 Troponin Reviewed. le 15:36 Chest, 2 View (pa\E\lat) Reviewed. le 15:38 Misc. Nursing Order ordered. le 15:39 Financial registration complete. gjb 16:15 [facility] Payment Agreement was scanned into [employer] and attached to record. gjb 17:04 D-Dimer Quant Reviewed. le 18:11 HYDROcodone-acetaminophen 4 pack- 5 mg-325 mg 1 packets PO Per package directions; le Dispense with patient. 1 po q4h prn for pain ordered. 08/10 09:18 T-Sheet-- Draft Copy was scanned into [employer] and attached to record. gb 09:18 ECG/EKG was scanned into [employer] and attached to record. gb Administered Medications: 08/09 15:36 Drug: fentaNYL (PF) 25 mcg [fentanyl (PF) 50 mcg/mL injection solution (0.5 mL)] Route: dsf IVP; Site: right antecubital; 15:57 Follow up: Pain 4/10 Adult; see charted VS dsf 18:30 Drug: HYDROcodone-acetaminophen 4 pack- 1 packets [hydrocodone 5 mg-acetaminophen 325 kc3 mg tablet (1 tabs)] {Co-Signature: dsf (Flavia Muir RN).} Route: PO; Signatures: Dispatcher [employer] EDMS Betzaida Fu, RN KEN srm Ioana Ortega, Reg Reg Saundra Moreno, DIGITAL MEDIA INTERN DIGITAL MEDIA INTERN Carolee Greene RN RN kc3 Dalia Hernandez Desiree RN dsf Desiree Fuller RN dsf The chart was reviewed and I authenticate all verbal orders and agree with the evaluation and treatment provided.Corrections: (The following items were deleted from the chart) 15:37 14:13 Saw Maker/Pulse Ox/q 30 min VS ordered. mya roque 15:37 14:13 Rhythm Strip to chart ordered. mya roque Attachments: 16:15 [facility] Payment Agreement [facility] 08/10 09:18 T-Sheet-- Draft Copy :18 ECG/EKG Chart Complete MTDD
== END 2016-08-09 18:27 | disposition home or self-care (01) ==
LOC: M ED 12:22
DX: R07.89 Other chest pain (principal); J45.909 Unspecified asthma, uncomplicated; Z86.711 Personal history of pulmonary embolism; Z79.01 Long term (current) use of anticoagulants; Z79.899 Other long term (current) drug therapy; Z91.030 Bee allergy status; Z91.041 Radiographic dye allergy status; Z91.040 Latex allergy status; Z88.5 Allergy status to narcotic agent
CPT/HCPCS: 36415; 71020; 80048; 82550; 82553; 85025; 85379; 93005; 96374; 99284; J3010

== ENCOUNTER 2016-08-17 09:15 | Emergency (ER) | payer OTHER ==
[2016-08-17] MEDS ORDERED: IPRATROPIUM 0.5MG/ALBUTEROL 2.5MG INH SOL UD 3ML (DUONEB)(J7620) As Ordered ONE (09:58)
[2016-08-17 10:10] LABS: BASO % 0.4 % (0.0-1.0); EOS # 0.1 K/mm3 (0.0-0.50); EOS % 1.3 % (0.0-3.0); LARGE UNSTAINED CELL # 0.1 K/mm3 (0.0-0.4); LYMPH # 1.7 K/mm3 (1.5-4.5); LYMPH % 19.3 % (24.0-44.0); MEAN CORPUSCULAR HEMOGLOBIN 28.2 pg (27.0-33.0); MONO # 0.3 K/mm3 (0.0-0.8); MONO % 3.2 % (0.0-5.0); NEUTROPHILS # 6.5 K/mm3 (1.8-7.7); NEUTROPHILS % 74.8 % (36.0-66.0); PLATELET COUNT, AUTOMATED 353 k/mm3 (150-450); RED CELL DISTRIBUTION WIDTH 13.8 % (11.5-14.5); WHITE BLOOD COUNT 8.7 K/mm3 (4.0-10.0)
[2016-08-17 10:38] LABS: ALBUMIN 4.1 GM/DL (3.2-5.2); ALBUMIN/GLOBULIN RATIO 1.11 (1.00-1.93); ALKALINE PHOSPHATASE 77 U/L (45-117); ALT/SGPT 14 U/L (12-78); ANION GAP 7 MEQ/L (8-16); AST/SGOT 10 U/L (15-37); BILIRUBIN,TOTAL 0.5 MG/DL (0.2-1.0); BLOOD UREA NITROGEN 8 MG/DL (7-18); CALCIUM LEVEL 8.8 MG/DL (8.5-10.1); CARBON DIOXIDE LEVEL 28 MEQ/L (21-32); CHLORIDE LEVEL 106 MEQ/L (98-107); GLOMERULAR FILTRATION RATE > 60.0 (>60); GLUCOSE, FASTING 89 MG/DL (70-105); POTASSIUM SERUM 3.9 MEQ/L (3.5-5.1); SODIUM LEVEL 141 MEQ/L (136-145); TOTAL PROTEIN 7.8 GM/DL (6.4-8.2)
[2016-08-17] MEDS ORDERED: AZITHROMYCIN 250 MG TAB As Ordered ONE (11:29)
--- NOTE | 2016-08-17 11:39 | EDDOCDS ---
Physician Documentation [facility] Name: Phyllis Kim Age: 30 yrs Sex: Female : 1985 Arrival Date: 08/17/2016 Time: 09:15 Bed I5 / M5 Private MD: [facility] Disposition: 08/17/16 11:28 Discharged to Home/Self Care. Impression: Acute sinusitis, Acute bronchitis. - Condition is Stable. - Discharge Instructions: Sinusitis, [id number], Acute Bronchitis, Hpfq-sy-[id number]. - Prescriptions for Zithromax 250 mg Oral Tablet - take 1 tablet by ORAL route once daily start tomorrow; 4 tablet. Albuterol Sulfate 90 mcg/actuation Inhalation HFA Aerosol Inhaler - inhale 2 puff by INHALATION route every 4 hours As needed; 1 Inhaler. - Medication Reconciliation, Local Pharmacy Hours form. - Follow up: [facility]; When: 1 - 2 days; Reason: Recheck today's complaints, Continuance of care. Follow up: Emergency Department; Reason: Worsening of conditions. Follow up: ANTHONY Florez; When: 1 - 2 days; Reason: Recheck today's complaints, Continuance of care. - Problem is new. - Symptoms have improved. Historical: - Allergies: Bees; IVP dyeblurry vision, nausea and racing heart; Latex (Rash); Percocetdizzy, hot and nauseated; - Home Meds: 1. Advair Diskus Inhl 2 puff 2 times per day 2. albuterol sulfate 90 mcg/actuation Inhl HFAA 2 puffs every 4-6 hours 3. Lovenox Unknown Sub-Q once daily - PMHx: Asthma; Concussion; Migraine Headaches; PE (March 21, 2016); - PSHx: none; - Social history: Smoking status: Patient states was never smoker of tobacco. No barriers to communication noted, The patient speaks fluent Faroese, Speaks appropriately for age. - Family history: Not pertinent. - Exposure Risk Screening:: None identified. - : Home medication list is obtained from the patient. Vital Signs: 08/17 09:18 BP 113 / 73; Pulse 103; Resp 18; Temp 97.0; Pulse Ox 99% ; Weight 74.84 kg / 164.99 elp lbs; Height 5 ft. 4 in. (162.56 cm); Pain 3/10; 11:33 BP 122 / 66; Pulse 109; Resp 18; Temp 99.0(O); Pulse Ox 100% on R/A; Pain 0/10; nb2 09:18 Body Mass Index 28.32 (74.84 kg, 162.56 cm) elp MDM: 09:50 Albuterol-Ipratropium 1 neb Nebulizer every 20 minutes x3 ordered. ef1 09:50 Call Respiratory ordered. ef1 09:52 CBC with Diff Ordered. EDMS 09:52 Complete Comphrensive Metabolic Ordered. EDMS 09:52 D-Dimer Quant Ordered. EDMS 09:53 IV Saline Lock ordered. ef1 09:54 Financial registration complete. mm15 09:59 Call Respiratory complete. ead 10:00 [facility] Payment Agreement was scanned into [employer] and attached to record. mm15 10:51 CBC with Diff Reviewed. ef1 10:51 Complete Comphrensive Metabolic Reviewed. ef1 10:51 D-Dimer Quant Reviewed. ef1 11:26 azithromycin 500 mg PO once ordered. ef1 Administered Medications: 10:00 Drug: Albuterol-Ipratropium 1 neb [ipratropium-albuterol 0.5 mg-3 mg(2.5 mg base)/3 mL cs15 nebulization soln (1 neb)] Route: Nebulizer; 10:30 Drug: Albuterol-Ipratropium 1 neb [ipratropium-albuterol 0.5 mg-3 mg(2.5 mg base)/3 mL cs15 nebulization soln (1 neb)] Route: Nebulizer; 10:57 Drug: Albuterol-Ipratropium 1 neb [ipratropium-albuterol 0.5 mg-3 mg(2.5 mg base)/3 mL cs15 nebulization soln (1 neb)] Route: Nebulizer; 11:35 Drug: azithromycin 500 mg [azithromycin 250 mg tablet (2 tabs)] Route: PO; ead Signatures: Dispatcher [employer] EDMS Dakota Jewell RN RN jmk Barney, Michael B RN RN mlb1 Freda Zhang, DALTONC PA-C ef1 To Mckenzie mm15 Beatriz Landaverde RN RN Luis Jha RT cs15 The chart was reviewed and I authenticate all verbal orders and agree with the evaluation and treatment provided.Attachments: 10:00 [facility] Payment Agreement mm15 MTDD
--- NOTE | 2016-08-17 11:39 | EDDOCDS ---
Nurse's Notes [facility] Name: Phyllis Kim Age: 30 yrs Sex: Female : 1985 Arrival Date: 08/17/2016 Time: 09:15 Bed I5 / M5 Private MD: [facility] Diagnosis: Acute sinusitis;Acute bronchitis Presentation: 08/17 09:29 Presenting complaint: Patient states: Positive at home, chest and back pain mlb1 with respiration began a week ago worse since yesterday. Aspirin was not taken prior to arrival. Adult Sepsis Screening: The patient does not have new or worsening altered mentation. Patient's respiratory rate is less than 22. Systolic blood pressure is greater than 100. Patient has a qSOFA score of 0- Negative Sepsis Screen. Suicide/Homicide risk assessment- the patient denies having any suicidal and/or homicidal ideations and does not present with any other emotional, behavioral or mental health complaints. Status: The patient is a dependent. Transition of care: patient was not received from another setting of care. 09:29 Acuity: STEPHIE Level 3 mlb1 09:29 Method Of Arrival: Walkin/Carried/Asstd mlb1 Triage Assessment: 09:34 General: Appears in no apparent distress, Behavior is appropriate for age, cooperative. mlb1 Pain: Location: chest Pain currently is 1 out of 10 on a pain scale. HIV screening NA for this visit Offered previously. Historical: - Allergies: Bees; IVP dyeblurry vision, nausea and racing heart; Latex (Rash); Percocetdizzy, hot and nauseated; - Home Meds: 1. Advair Diskus Inhl 2 puff 2 times per day 2. albuterol sulfate 90 mcg/actuation Inhl HFAA 2 puffs every 4-6 hours 3. Lovenox Unknown Sub-Q once daily - PMHx: Asthma; Concussion; Migraine Headaches; PE (March 21, 2016); - PSHx: none; - Social history: Smoking status: Patient states was never smoker of tobacco. No barriers to communication noted, The patient speaks fluent Frisian, Speaks appropriately for age. - Family history: Not pertinent. - Exposure Risk Screening:: None identified. - : Home medication list is obtained from the patient. Screenin:35 Screening information is obtained from the patient. Fall risk: No risks identified. jmk Assistance ADL's: requires no assistance with activities of daily living. Abuse/DV Screen: The patient / caregiver reports he/she is: not in a situation that causes fear, pain or injury. Nutritional screening: No deficits noted. Advance Directives: Currently, there is no health care proxy. There is no active DNR order. There is no living will. There is no Power of Corrections Sergeant. home support is adequate. Assessment: 10:05 General: Appears in no apparent distress, skin warm and dry color satisfactory.. moist jmk pink oral mucosa. conversing complete sentences without resp interruption. Chest TA. Indicates discomfort to lower thoracic region. No cough appreciated.. Cardiovascular: Capillary refill < 3 seconds Clubbing of nail beds is absent Heart tones S1 S2 present Edema is absent. Respiratory: No deficits noted. Airway is patent Respiratory effort is even, unlabored, Respiratory pattern is regular, Breath sounds are clear bilaterally. 11:35 General: Appears states pain has decreased to 0/10. without resp distress. reports jmk still feeling slightly shaky. receptive to discharge.. Vital Signs: 09:18 BP 113 / 73; Pulse 103; Resp 18; Temp 97.0; Pulse Ox 99% ; Weight 74.84 kg; Height 5 elp ft. 4 in. (162.56 cm); Pain 3/10; 11:33 BP 122 / 66; Pulse 109; Resp 18; Temp 99.0(O); Pulse Ox 100% on R/A; Pain 0/10; nb2 09:18 Body Mass Index 28.32 (74.84 kg, 162.56 cm) [facility] Vitals: 09:18 Log In Time: August 17, 2016 at 09:06. [facility] ED Course: 09:17 Patient visited by Tiffanie Carcamo PCA. elp 09:17 Patient moved to Waiting elp 09:18 DAISY De Luna is Private Physician. elp 09:18 Patient visited by Tiffanie Carcamo PCA. elp 09:18 Patient moved to Pre RCE elp 09:29 Patient visited by Orestes Hardy RN. mlb1 09:31 Triage Initiated mlb1 09:32 [facility] ef1 09:32 Laurie Cifuentes MD is Attending Physician. ef1 09:34 Patient visited by Orestes Hardy RN. mlb1 09:34 Patient visited by Freda Zhang PA-C. ef1 09:34 Patient moved to Family 1 mlb1 09:52 Patient moved to PR2 / 26 kc3 09:53 Patient moved to I5 / M5 kc3 10:00 [facility] Payment Agreement was scanned into [employer] and attached to record. mm15 10:00 Inserted saline lock: 20 gauge in left. jmk 10:04 Patient visited by Beatriz Landaverde RN. ead 10:04 D-Dimer Quant Sent. ead 10:04 Complete Comphrensive Metabolic Sent. ead 10:04 CBC with Diff Sent. ead 10:51 Patient visited by Freda Zhang PA-C. ef1 11:23 Patient visited by Freda Zhang PA-C. ef1 11:28 [facility] is Referral Physician. ef1 11:31 Vince Gaona OB is Referral Physician. ef1 11:33 Patient visited by Teri Carrera. nb2 11:35 The patient / caregiver is instructed regarding the plan of care and ED course. Cardiac jmk monitoring not applicable on this patient. 11:35 No procedures done that require assistance. ead 11:35 Discontinued lock intact, bleeding controlled, pressure dressing applied, No jmk redness/swelling at site. Administered Medications: 10:00 Drug: Albuterol-Ipratropium 1 neb [ipratropium-albuterol 0.5 mg-3 mg(2.5 mg base)/3 mL cs15 nebulization soln (1 neb)] Route: Nebulizer; 10:30 Drug: Albuterol-Ipratropium 1 neb [ipratropium-albuterol 0.5 mg-3 mg(2.5 mg base)/3 mL cs15 nebulization soln (1 neb)] Route: Nebulizer; 10:57 Drug: Albuterol-Ipratropium 1 neb [ipratropium-albuterol 0.5 mg-3 mg(2.5 mg base)/3 mL cs15 nebulization soln (1 neb)] Route: Nebulizer; 11:35 Drug: azithromycin 500 mg [azithromycin 250 mg tablet (2 tabs)] Route: PO; ead RT: 10:10 Initial Med Neb Given as ordered. Respiratory: Respiratory effort is labored, cs15 Respiratory pattern is regular Breath sounds are clear bilaterally. Reports left sided chest pain throughout. She became recently. She takes lovenox shots for anticoagulation. She also states that the pain is different from when she had her last PE. States that there is no burning sensation this time. Order Results: Lab Order: CBC with Diff; SPEC'M 08/17/16 10:01 Test: WHITE BLOOD COUNT; Value: 8.7; Range: 4.0-10.0; Units: K/mm3; Status: F Test: RED BLOOD COUNT; Value: 4.34; Range: 4.00-5.40; Units: M/mm3; Status: F Test: HEMOGLOBIN; Value: 12.2; Range: 12.0-16.0; Units: g/dl; Status: F Test: HEMATOCRIT; Value: 36.0; Range: 36.0-47.0; Units: %; Status: F Test: MEAN CORPUSCULAR VOLUME; Value: 83.0; Range: 80.0-96.0; Units: fl; Status: F Test: MEAN CORPUSCULAR HEMOGLOBIN; Value: 28.2; Range: 27.0-33.0; Units: pg; Status: F Test: MEAN CORPUSCULAR HGB CONC; Value: 34.0; Range: 32.0-36.5; Units: g/dl; Status: F Test: RED CELL DISTRIBUTION WIDTH; Value: 13.8; Range: 11.5-14.5; Units: %; Status: F Test: PLATELET COUNT, AUTOMATED; Value: 353; Range: 150-450; Units: k/mm3; Status: F Test: NEUTROPHILS %; Value: 74.8; Range: 36.0-66.0; Abnormal: Above high normal; Units: %; Status: F Test: LYMPH %; Value: 19.3; Range: 24.0-44.0; Abnormal: Below low normal; Units: %; Status: F Test: MONO %; Value: 3.2; Range: 0.0-5.0; Units: %; Status: F Test: EOS %; Value: 1.3; Range: 0.0-3.0; Units: %; Status: F Test: BASO %; Value: 0.4; Range: 0.0-1.0; Units: %; Status: F Test: LARGE UNSTAINED CELL %; Value: 1.0; Range: 0.0-4.0; Units: %; Status: F Test: NEUTROPHILS #; Value: 6.5; Range: 1.8-7.7; Units: K/mm3; Status: F Test: LYMPH #; Value: 1.7; Range: 1.5-4.5; Units: K/mm3; Status: F Test: MONO #; Value: 0.3; Range: 0.0-0.8; Units: K/mm3; Status: F Test: EOS #; Value: 0.1; Range: 0.0-0.50; Units: K/mm3; Status: F Test: BASO #; Value: 0.0; Range: 0.0-0.2; Units: K/mm3; Status: F Test: LARGE UNSTAINED CELL #; Value: 0.1; Range: 0.0-0.4; Units: K/mm3; Status: F Lab Order: Complete Comphrensive Metabolic; SPEC'M 08/17/16 10:01 Test: GLUCOSE, FASTING; Value: 89; Range: 70-105; Units: MG/DL; Status: F Test: BLOOD UREA NITROGEN; Value: 8; Range: 7-18; Units: MG/DL; Status: F Test: CREATININE FOR GFR; Value: 0.70; Range: 0.55-1.02; Units: MG/DL; Status: F Test: GLOMERULAR FILTRATION RATE; Value: > 60.0; Range: >60; Status: F Test: SODIUM LEVEL; Value: 141; Range: 136-145; Units: MEQ/L; Status: F Test: POTASSIUM SERUM; Value: 3.9; Range: 3.5-5.1; Units: MEQ/L; Status: F Test: CHLORIDE LEVEL; Value: 106; Range: 98-107; Units: MEQ/L; Status: F Test: CARBON DIOXIDE LEVEL; Value: 28; Range: 21-32; Units: MEQ/L; Status: F Test: ANION GAP; Value: 7; Range: 8-16; Abnormal: Below low normal; Units: MEQ/L; Status: F Test: CALCIUM LEVEL; Value: 8.8; Range: 8.5-10.1; Units: MG/DL; Status: F Test: AST/SGOT; Value: 10; Range: 15-37; Abnormal: Below low normal; Units: U/L; Status: F Test: ALT/SGPT; Value: 14; Range: 12-78; Units: U/L; Status: F Test: ALKALINE PHOSPHATASE; Value: 77; Range: 45-117; Units: U/L; Status: F Test: BILIRUBIN,TOTAL; Value: 0.5; Range: 0.2-1.0; Units: MG/DL; Status: F Test: TOTAL PROTEIN; Value: 7.8; Range: 6.4-8.2; Units: GM/DL; Status: F Test: ALBUMIN; Value: 4.1; Range: 3.2-5.2; Units: GM/DL; Status: F Test: ALBUMIN/GLOBULIN RATIO; Value: 1.11; Range: 1.00-1.93; Status: F Test Note: ; Units are mL/min/1.73 m2 Chronic Kidney Disease Staging per NKF: Stage I & II GFR >=60 Normal to Mildly Decreased Stage III GFR 30-59 Moderately Decreased Stage IV GFR 15-29 Severely Decreased Stage V GFR <15 Very Little GFR Left ESRD GFR <15 on FIELD OPERATIONS TECHNICIAN Lab Order: D-Dimer Quant; SPEC'M 08/17/16 10:01 Test: D-DIMER QUANT; Value: < 270.0; Range: <500; Units: ng/ml; Status: F Outcome: 10:00 Discharge Assessment: Patient awake, alert and oriented x 3. No cognitive and/or k functional deficits noted. Patient verbalized understanding of disposition instructions. patient administered narcotics - no. The following High Risk Discharge criteria are identified: None. Discharged to home ambulatory. Condition: good. Discharge instructions given to patient, Instructed on discharge instructions, follow up and referral plans. medication usage, Demonstrated understanding of instructions, medications, Pt was receptive of discharge instructions/ teaching. Prescriptions given X 2. No special radiology studies were completed. Property :Personal belongings accompany Pt. 11:28 Discharge ordered by Provider. ef1 11:38 Patient left the ED. k Signatures: Dakota JewellRN RN Orestes Duron RN RN mlb1 Freda Zhang, PA-C PA-C ef1 To Mckenzie mm15 Tiffanie Carcamo, FIELD SALES REPRESENTATIVE FIELD SALES REPRESENTATIVE renéep Beatriz Landaverde,RN RN kvngd Carolee Beverly,RN RN kc3 Luis Carrera,RT RT cs15 Teri Carrera nb2 MTDD
--- NOTE | 2016-08-19 12:40 | EDDOCDS ---
Physician Documentation [facility] Name: Phyllis Kim Age: 30 yrs Sex: Female : 1985 Arrival Date: 08/17/2016 Time: 09:15 Bed I5 / M5 Private MD: [facility] Disposition: 08/17/16 11:28 Discharged to Home/Self Care. Impression: Acute sinusitis, Acute bronchitis. - Condition is Stable. - Discharge Instructions: Sinusitis, Dgwj-[id number], Acute Bronchitis, Prwi-ra-Vqzp. - Prescriptions for Zithromax 250 mg Oral Tablet - take 1 tablet by ORAL route once daily start tomorrow; 4 tablet. Albuterol Sulfate 90 mcg/actuation Inhalation HFA Aerosol Inhaler - inhale 2 puff by INHALATION route every 4 hours As needed; 1 Inhaler. - Medication Reconciliation, Local Pharmacy Hours form. - Follow up: [facility] Cal[facility]xto; When: 1 - 2 days; Reason: Recheck today's complaints, Continuance of care. Follow up: Emergency Department; Reason: Worsening of conditions. Follow up: ANTHONY Florez; When: 1 - 2 days; Reason: Recheck today's complaints, Continuance of care. - Problem is new. - Symptoms have improved. Historical: - Allergies: Bees; IVP dyeblurry vision, nausea and racing heart; Latex (Rash); Percocetdizzy, hot and nauseated; - Home Meds: 1. Advair Diskus Inhl 2 puff 2 times per day 2. albuterol sulfate 90 mcg/actuation Inhl HFAA 2 puffs every 4-6 hours 3. Lovenox Unknown Sub-Q once daily - PMHx: Asthma; Concussion; Migraine Headaches; PE (March 21, 2016); - PSHx: none; - Social history: Smoking status: Patient states was never smoker of tobacco. No barriers to communication noted, The patient speaks fluent Faroese, Speaks appropriately for age. - Family history: Not pertinent. - Exposure Risk Screening:: None identified. - : Home medication list is obtained from the patient. Vital Signs: 08/17 09:18 BP 113 / 73; Pulse 103; Resp 18; Temp 97.0; Pulse Ox 99% ; Weight 74.84 kg / 164.99 elp lbs; Height 5 ft. 4 in. (162.56 cm); Pain 3/10; 11:33 BP 122 / 66; Pulse 109; Resp 18; Temp 99.0(O); Pulse Ox 100% on R/A; Pain 0/10; nb2 09:18 Body Mass Index 28.32 (74.84 kg, 162.56 cm) elp MDM: 09:50 Albuterol-Ipratropium 1 neb Nebulizer every 20 minutes x3 ordered. ef1 09:50 Call Respiratory ordered. ef1 09:52 CBC with Diff Ordered. EDMS 09:52 Complete Comphrensive Metabolic Ordered. EDMS 09:52 D-Dimer Quant Ordered. EDMS 09:53 IV Saline Lock ordered. ef1 09:54 Financial registration complete. mm15 09:59 Call Respiratory complete. ead 10:00 [facility] Payment Agreement was scanned into [employer] and attached to record. mm15 10:51 CBC with Diff Reviewed. ef1 10:51 Complete Comphrensive Metabolic Reviewed. ef1 10:51 D-Dimer Quant Reviewed. ef1 11:26 azithromycin 500 mg PO once ordered. ef1 13:54 T-Sheet-- Draft Copy was scanned into [employer] and attached to record. gb Administered Medications: 10:00 Drug: Albuterol-Ipratropium 1 neb [ipratropium-albuterol 0.5 mg-3 mg(2.5 mg base)/3 mL cs15 nebulization soln (1 neb)] Route: Nebulizer; 10:30 Drug: Albuterol-Ipratropium 1 neb [ipratropium-albuterol 0.5 mg-3 mg(2.5 mg base)/3 mL cs15 nebulization soln (1 neb)] Route: Nebulizer; 10:57 Drug: Albuterol-Ipratropium 1 neb [ipratropium-albuterol 0.5 mg-3 mg(2.5 mg base)/3 mL cs15 nebulization soln (1 neb)] Route: Nebulizer; 11:35 Drug: azithromycin 500 mg [azithromycin 250 mg tablet (2 tabs)] Route: PO; ead Signatures: Dispatcher [employer] EDMS Dakota Jewell,RN RN Ioana Arriola Reg Reg gb Barney, Michael B RN RN mlb1 Freda Zhang, PARukhsanaC PA-C ef1 To Mckenzie mm15 Beatriz Landaverde,RN RN Luis Jha RT cs15 The chart was reviewed and I authenticate all verbal orders and agree with the evaluation and treatment provided.Attachments: 10:00 [facility] Payment Agreement mm15 13:54 T-Sheet-- Draft Copy gb Chart Complete MTDD
--- NOTE | 2016-08-19 12:40 | EDDOCDS ---
Physician Documentation [facility] Name: Phyllis Kim Age: 30 yrs Sex: Female : 1985 Arrival Date: 08/17/2016 Time: 09:15 Bed I5 / M5 Private MD: Calixto [facility] Disposition: 08/17/16 11:28 Discharged to Home/Self Care. Impression: Acute sinusitis, Acute bronchitis. - Condition is Stable. - Discharge Instructions: Sinusitis, [id number], Acute Bronchitis, [id number]. - Prescriptions for Zithromax 250 mg Oral Tablet - take 1 tablet by ORAL route once daily start tomorrow; 4 tablet. Albuterol Sulfate 90 mcg/actuation Inhalation HFA Aerosol Inhaler - inhale 2 puff by INHALATION route every 4 hours As needed; 1 Inhaler. - Medication Reconciliation, Local Pharmacy Hours form. - Follow up: [facility] Calixto; When: 1 - 2 days; Reason: Recheck today's complaints, Continuance of care. Follow up: Emergency Department; Reason: Worsening of conditions. Follow up: ANTHONY Florez; When: 1 - 2 days; Reason: Recheck today's complaints, Continuance of care. - Problem is new. - Symptoms have improved. Historical: - Allergies: Bees; IVP dyeblurry vision, nausea and racing heart; Latex (Rash); Percocetdizzy, hot and nauseated; - Home Meds: 1. Advair Diskus Inhl 2 puff 2 times per day 2. albuterol sulfate 90 mcg/actuation Inhl HFAA 2 puffs every 4-6 hours 3. Lovenox Unknown Sub-Q once daily - PMHx: Asthma; Concussion; Migraine Headaches; PE (March 21, 2016); - PSHx: none; - Social history: Smoking status: Patient states was never smoker of tobacco. No barriers to communication noted, The patient speaks fluent Occitan, Speaks appropriately for age. - Family history: Not pertinent. - Exposure Risk Screening:: None identified. - : Home medication list is obtained from the patient. Vital Signs: 08/17 09:18 BP 113 / 73; Pulse 103; Resp 18; Temp 97.0; Pulse Ox 99% ; Weight 74.84 kg / 164.99 elp lbs; Height 5 ft. 4 in. (162.56 cm); Pain 3/10; 11:33 BP 122 / 66; Pulse 109; Resp 18; Temp 99.0(O); Pulse Ox 100% on R/A; Pain 0/10; nb2 09:18 Body Mass Index 28.32 (74.84 kg, 162.56 cm) elp MDM: 09:50 Albuterol-Ipratropium 1 neb Nebulizer every 20 minutes x3 ordered. ef1 09:50 Call Respiratory ordered. ef1 09:52 CBC with Diff Ordered. EDMS 09:52 Complete Comphrensive Metabolic Ordered. EDMS 09:52 D-Dimer Quant Ordered. EDMS 09:53 IV Saline Lock ordered. ef1 09:54 Financial registration complete. mm15 09:59 Call Respiratory complete. ead 10:00 [facility] Payment Agreement was scanned into [employer] and attached to record. mm15 10:51 CBC with Diff Reviewed. ef1 10:51 Complete Comphrensive Metabolic Reviewed. ef1 10:51 D-Dimer Quant Reviewed. ef1 11:26 azithromycin 500 mg PO once ordered. ef1 13:54 T-Sheet-- Draft Copy was scanned into [employer] and attached to record. gb Administered Medications: 10:00 Drug: Albuterol-Ipratropium 1 neb [ipratropium-albuterol 0.5 mg-3 mg(2.5 mg base)/3 mL cs15 nebulization soln (1 neb)] Route: Nebulizer; 10:30 Drug: Albuterol-Ipratropium 1 neb [ipratropium-albuterol 0.5 mg-3 mg(2.5 mg base)/3 mL cs15 nebulization soln (1 neb)] Route: Nebulizer; 10:57 Drug: Albuterol-Ipratropium 1 neb [ipratropium-albuterol 0.5 mg-3 mg(2.5 mg base)/3 mL cs15 nebulization soln (1 neb)] Route: Nebulizer; 11:35 Drug: azithromycin 500 mg [azithromycin 250 mg tablet (2 tabs)] Route: PO; ead Signatures: Dispatcher Med[employer] EDMS Dakota Jewell,RN RN Ioana Arriola Reg Reg gb Barney, Michael B RN RN mlb1 Freda Zhang, PARukhsanaC PA-C ef1 To Mckenzie mm15 Beatriz Landaverde,RN RN Luis Jha RT cs15 The chart was reviewed and I authenticate all verbal orders and agree with the evaluation and treatment provided.Attachments: 10:00 [facility] Payment Agreement mm15 13:54 T-Sheet-- Draft Copy gb Chart Complete MTDD
--- NOTE | 2016-08-19 12:40 | EDDOCDS ---
Nurse's Notes [facility] Name: Phyllis Kim Age: 30 yrs Sex: Female : 1985 Arrival Date: 08/17/2016 Time: 09:15 Bed I5 / M5 Private MD: [facility]xt[facility] [place] Diagnosis: Acute sinusitis;Acute bronchitis Presentation: 08/17 09:29 Presenting complaint: Patient states: Positive at home, chest and back pain mlb1 with respiration began a week ago worse since yesterday. Aspirin was not taken prior to arrival. Adult Sepsis Screening: The patient does not have new or worsening altered mentation. Patient's respiratory rate is less than 22. Systolic blood pressure is greater than 100. Patient has a qSOFA score of 0- Negative Sepsis Screen. Suicide/Homicide risk assessment- the patient denies having any suicidal and/or homicidal ideations and does not present with any other emotional, behavioral or mental health complaints. Status: The patient is a dependent. Transition of care: patient was not received from another setting of care. 09:29 Acuity: STEPHIE Level 3 mlb1 09:29 Method Of Arrival: Walkin/Carried/Asstd mlb1 Triage Assessment: 09:34 General: Appears in no apparent distress, Behavior is appropriate for age, cooperative. mlb1 Pain: Location: chest Pain currently is 1 out of 10 on a pain scale. HIV screening NA for this visit Offered previously. Historical: - Allergies: Bees; IVP dyeblurry vision, nausea and racing heart; Latex (Rash); Percocetdizzy, hot and nauseated; - Home Meds: 1. Advair Diskus Inhl 2 puff 2 times per day 2. albuterol sulfate 90 mcg/actuation Inhl HFAA 2 puffs every 4-6 hours 3. Lovenox Unknown Sub-Q once daily - PMHx: Asthma; Concussion; Migraine Headaches; PE (March 21, 2016); - PSHx: none; - Social history: Smoking status: Patient states was never smoker of tobacco. No barriers to communication noted, The patient speaks fluent Sami, Speaks appropriately for age. - Family history: Not pertinent. - Exposure Risk Screening:: None identified. - : Home medication list is obtained from the patient. Screenin:35 Screening information is obtained from the patient. Fall risk: No risks identified. jmk Assistance ADL's: requires no assistance with activities of daily living. Abuse/DV Screen: The patient / caregiver reports he/she is: not in a situation that causes fear, pain or injury. Nutritional screening: No deficits noted. Advance Directives: Currently, there is no health care proxy. There is no active DNR order. There is no living will. 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 home support is adequate. Assessment: 10:05 General: Appears in no apparent distress, skin warm and dry color satisfactory.. moist jmk pink oral mucosa. conversing complete sentences without resp interruption. Chest TA. Indicates discomfort to lower thoracic region. No cough appreciated.. Cardiovascular: Capillary refill < 3 seconds Clubbing of nail beds is absent Heart tones S1 S2 present Edema is absent. Respiratory: No deficits noted. Airway is patent Respiratory effort is even, unlabored, Respiratory pattern is regular, Breath sounds are clear bilaterally. 11:35 General: Appears states pain has decreased to 0/10. without resp distress. reports jmk still feeling slightly shaky. receptive to discharge.. Vital Signs: 09:18 BP 113 / 73; Pulse 103; Resp 18; Temp 97.0; Pulse Ox 99% ; Weight 74.84 kg; Height 5 elp ft. 4 in. (162.56 cm); Pain 3/10; 11:33 BP 122 / 66; Pulse 109; Resp 18; Temp 99.0(O); Pulse Ox 100% on R/A; Pain 0/10; nb2 09:18 Body Mass Index 28.32 (74.84 kg, 162.56 cm) [facility] Vitals: 09:18 Log In Time: August 17, 2016 at 09:06. [facility] ED Course: 09:17 Patient visited by Tiffanie Carcamo PCA. elp 09:17 Patient moved to Waiting elp 09:18 DAISY De Luan is Private Physician. elp 09:18 Patient visited by Tiffanie Carcamo PCA. elp 09:18 Patient moved to Pre RCE elp 09:29 Patient visited by Orestes Hardy RN. mlb1 09:31 Triage Initiated mlb1 09:32 [facility] ef1 09:32 Laurie Cifuentes MD is Attending Physician. ef1 09:34 Patient visited by Orestes Hardy RN. mlb1 09:34 Patient visited by Freda Zhang PA-C. ef1 09:34 Patient moved to Family 1 mlb1 09:52 Patient moved to PR2 / 26 kc3 09:53 Patient moved to I5 / M5 kc3 10:00 [facility] Payment Agreement was scanned into [employer] and attached to record. mm15 10:00 Inserted saline lock: 20 gauge in left. jmk 10:04 Patient visited by Beatriz Landaverde RN. ead 10:04 D-Dimer Quant Sent. ead 10:04 Complete Comphrensive Metabolic Sent. ead 10:04 CBC with Diff Sent. ead 10:51 Patient visited by Freda Zhang PA-C. ef1 11:23 Patient visited by Freda Zhang PA-C. ef1 11:28 [facility] is Referral Physician. ef1 11:31 Vince Gaona OB is Referral Physician. ef1 11:33 Patient visited by Teri Carrera. nb2 11:35 The patient / caregiver is instructed regarding the plan of care and ED course. Cardiac jmk monitoring not applicable on this patient. 11:35 No procedures done that require assistance. ead 11:35 Discontinued lock intact, bleeding controlled, pressure dressing applied, No jmk redness/swelling at site. 13:54 T-Sheet-- Draft Copy was scanned into [employer] and attached to record. gb Administered Medications: 10:00 Drug: Albuterol-Ipratropium 1 neb [ipratropium-albuterol 0.5 mg-3 mg(2.5 mg base)/3 mL cs15 nebulization soln (1 neb)] Route: Nebulizer; 10:30 Drug: Albuterol-Ipratropium 1 neb [ipratropium-albuterol 0.5 mg-3 mg(2.5 mg base)/3 mL cs15 nebulization soln (1 neb)] Route: Nebulizer; 10:57 Drug: Albuterol-Ipratropium 1 neb [ipratropium-albuterol 0.5 mg-3 mg(2.5 mg base)/3 mL cs15 nebulization soln (1 neb)] Route: Nebulizer; 11:35 Drug: azithromycin 500 mg [azithromycin 250 mg tablet (2 tabs)] Route: PO; ead RT: 10:10 Initial Med Neb Given as ordered. Respiratory: Respiratory effort is labored, cs15 Respiratory pattern is regular Breath sounds are clear bilaterally. Reports left sided chest pain throughout. She became recently. She takes lovenox shots for anticoagulation. She also states that the pain is different from when she had her last PE. States that there is no burning sensation this time. Order Results: Lab Order: CBC with Diff; SPEC'M 08/17/16 10:01 Test: WHITE BLOOD COUNT; Value: 8.7; Range: 4.0-10.0; Units: K/mm3; Status: F Test: RED BLOOD COUNT; Value: 4.34; Range: 4.00-5.40; Units: M/mm3; Status: F Test: HEMOGLOBIN; Value: 12.2; Range: 12.0-16.0; Units: g/dl; Status: F Test: HEMATOCRIT; Value: 36.0; Range: 36.0-47.0; Units: %; Status: F Test: MEAN CORPUSCULAR VOLUME; Value: 83.0; Range: 80.0-96.0; Units: fl; Status: F Test: MEAN CORPUSCULAR HEMOGLOBIN; Value: 28.2; Range: 27.0-33.0; Units: pg; Status: F Test: MEAN CORPUSCULAR HGB CONC; Value: 34.0; Range: 32.0-36.5; Units: g/dl; Status: F Test: RED CELL DISTRIBUTION WIDTH; Value: 13.8; Range: 11.5-14.5; Units: %; Status: F Test: PLATELET COUNT, AUTOMATED; Value: 353; Range: 150-450; Units: k/mm3; Status: F Test: NEUTROPHILS %; Value: 74.8; Range: 36.0-66.0; Abnormal: Above high normal; Units: %; Status: F Test: LYMPH %; Value: 19.3; Range: 24.0-44.0; Abnormal: Below low normal; Units: %; Status: F Test: MONO %; Value: 3.2; Range: 0.0-5.0; Units: %; Status: F Test: EOS %; Value: 1.3; Range: 0.0-3.0; Units: %; Status: F Test: BASO %; Value: 0.4; Range: 0.0-1.0; Units: %; Status: F Test: LARGE UNSTAINED CELL %; Value: 1.0; Range: 0.0-4.0; Units: %; Status: F Test: NEUTROPHILS #; Value: 6.5; Range: 1.8-7.7; Units: K/mm3; Status: F Test: LYMPH #; Value: 1.7; Range: 1.5-4.5; Units: K/mm3; Status: F Test: MONO #; Value: 0.3; Range: 0.0-0.8; Units: K/mm3; Status: F Test: EOS #; Value: 0.1; Range: 0.0-0.50; Units: K/mm3; Status: F Test: BASO #; Value: 0.0; Range: 0.0-0.2; Units: K/mm3; Status: F Test: LARGE UNSTAINED CELL #; Value: 0.1; Range: 0.0-0.4; Units: K/mm3; Status: F Lab Order: Complete Comphrensive Metabolic; SPEC'M 08/17/16 10:01 Test: GLUCOSE, FASTING; Value: 89; Range: 70-105; Units: MG/DL; Status: F Test: BLOOD UREA NITROGEN; Value: 8; Range: 7-18; Units: MG/DL; Status: F Test: CREATININE FOR GFR; Value: 0.70; Range: 0.55-1.02; Units: MG/DL; Status: F Test: GLOMERULAR FILTRATION RATE; Value: > 60.0; Range: >60; Status: F Test: SODIUM LEVEL; Value: 141; Range: 136-145; Units: MEQ/L; Status: F Test: POTASSIUM SERUM; Value: 3.9; Range: 3.5-5.1; Units: MEQ/L; Status: F Test: CHLORIDE LEVEL; Value: 106; Range: 98-107; Units: MEQ/L; Status: F Test: CARBON DIOXIDE LEVEL; Value: 28; Range: 21-32; Units: MEQ/L; Status: F Test: ANION GAP; Value: 7; Range: 8-16; Abnormal: Below low normal; Units: MEQ/L; Status: F Test: CALCIUM LEVEL; Value: 8.8; Range: 8.5-10.1; Units: MG/DL; Status: F Test: AST/SGOT; Value: 10; Range: 15-37; Abnormal: Below low normal; Units: U/L; Status: F Test: ALT/SGPT; Value: 14; Range: 12-78; Units: U/L; Status: F Test: ALKALINE PHOSPHATASE; Value: 77; Range: 45-117; Units: U/L; Status: F Test: BILIRUBIN,TOTAL; Value: 0.5; Range: 0.2-1.0; Units: MG/DL; Status: F Test: TOTAL PROTEIN; Value: 7.8; Range: 6.4-8.2; Units: GM/DL; Status: F Test: ALBUMIN; Value: 4.1; Range: 3.2-5.2; Units: GM/DL; Status: F Test: ALBUMIN/GLOBULIN RATIO; Value: 1.11; Range: 1.00-1.93; Status: F Test Note: ; Units are mL/min/1.73 m2 Chronic Kidney Disease Staging per NKF: Stage I & II GFR >=60 Normal to Mildly Decreased Stage III GFR 30-59 Moderately Decreased Stage IV GFR 15-29 Severely Decreased Stage V GFR <15 Very Little GFR Left ESRD GFR <15 on PLANT PRODUCTION WORKER Lab Order: D-Dimer Quant; SPEC'M 08/17/16 10:01 Test: D-DIMER QUANT; Value: < 270.0; Range: <500; Units: ng/ml; Status: F Outcome: 10:00 Discharge Assessment: Patient awake, alert and oriented x 3. No cognitive and/or jmk functional deficits noted. Patient verbalized understanding of disposition instructions. patient administered narcotics - no. The following High Risk Discharge criteria are identified: None. Discharged to home ambulatory. Condition: good. Discharge instructions given to patient, Instructed on discharge instructions, follow up and referral plans. medication usage, Demonstrated understanding of instructions, medications, Pt was receptive of discharge instructions/ teaching. Prescriptions given X 2. No special radiology studies were completed. Property :Personal belongings accompany Pt. 11:28 Discharge ordered by Provider. ef1 11:38 Patient left the ED. [facility] Signatures: Dakota JewellRN RN adrianak Jordan, Ioana, Reg Reg gb Antony, Orestes Waldron, RN RN mlb1 Freda Zhang, PA-C PA-C ef1 To Mckenzie mm15 Tiffanie Carcamo, BUSINESS PROCESS ARCHITECT BUSINESS PROCESS ARCHITECT elp Akhil,Beatriz,RN RN kvngd Carolee Beverly,RN RN kc3 Deandre,Luis,RT RT cs15 Teri Carrera nb2 Chart Complete MTDD
== END 2016-08-17 11:38 | disposition home or self-care (01) ==
LOC: M ED 09:15
DX: O99.519 Diseases of the respiratory system complicating pregnancy, unspecified trimester (principal); J01.90 Acute sinusitis, unspecified; J20.9 Acute bronchitis, unspecified; J45.909 Unspecified asthma, uncomplicated; O99.350 Diseases of the nervous system complicating pregnancy, unspecified trimester; G43.909 Migraine, unspecified, not intractable, without status migrainosus; Z86.711 Personal history of pulmonary embolism; Z79.51 Long term (current) use of inhaled steroids; Z79.899 Other long term (current) drug therapy; Z91.030 Bee allergy status; Z91.041 Radiographic dye allergy status; Z88.5 Allergy status to narcotic agent; Z91.040 Latex allergy status; Z3A.00 Weeks of gestation of pregnancy not specified

== ENCOUNTER 2016-08-25 21:37 | Emergency (ER) | payer OTHER ==
[2016-08-26] MEDS ORDERED: ACETAMINOPHEN 325 MG TAB As Ordered ONE (00:10)
--- NOTE | 2016-08-26 00:40 | REPUSA ---
CLINICAL HISTORY: Edema. COMMENTS: Real time sonography with duplex doppler of the left lower extremity was performed with attention to the major deep venous structures. Evaluation reveals the left common femoral, superficial femoral and popliteal veins to be completely compressible without intraluminal thrombus. There is normal spontaneous phasic flow and augmentation. The greater saphenous/common femoral vein junction is patent. IMPRESSION: No evidence of DVT in left lower extremity.. Thank you for your kind referral of this patient.
--- NOTE | 2016-08-26 00:44 | EDDOCDS ---
Nurse's Notes [facility] Name: Phyllis Kim Age: 30 yrs Sex: Female : 1985 Arrival Date: 08/25/2016 Time: 21:37 Bed I8 / 16 Private MD: Lu Dean E Diagnosis: Pain in left leg Presentation: 08/25 21:49 Presenting complaint: Patient states: pain behind L knee for 2 days. worse with rs3 walking. relief with rest. 5 weeks . On Lovenox 0.4 mls SQ daily. Adult Sepsis Screening: The patient does not have new or worsening altered mentation. Patient's respiratory rate is less than 22. Systolic blood pressure is greater than 100. Patient has a qSOFA score of 0- Negative Sepsis Screen. Suicide/Homicide risk assessment- the patient denies having any suicidal and/or homicidal ideations and does not present with any other emotional, behavioral or mental health complaints. Status: Patient is not a human services instructor or dependent. Transition of care: patient was not received from another setting of care. 21:49 Acuity: STEPHIE Level 4 rs3 21:49 Method Of Arrival: Walkin/Carried/Asstd rs3 Triage Assessment: 21:52 General: Appears in no apparent distress. Pain: Location: posterior aspect of left rs3 knee. HIV screening NA for this visit Offered previously. 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 Advair Diskus Inhl 2 puff 2 times per day 2. albuterol sulfate 90 mcg/actuation Inhl HFAA 2 puffs every 4-6 hours 3. Lovenox Sub-Q once daily - PMHx: Asthma; Concussion; Migraine Headaches; PE (March 21, 2016); - PSHx: none; - Social history: Smoking status: Patient states was never smoker of tobacco. No barriers to communication noted, Speaks appropriately for age. - Family history: Not pertinent. - : The pt / caregiver states he / she is on anticoagulants: Lovenox. Home medication list is obtained from the patient. - Exposure Risk Screening:: None identified. Screenin/03 00:10 Screening information is obtained from the patient. Fall risk: No risks identified. tm5 Assistance ADL's: requires no assistance with activities of daily living. Abuse/DV Screen: The patient / caregiver reports he/she is: not in a situation that causes fear, pain or injury. Nutritional screening: No deficits noted. Advance Directives: There is no active DNR order. home support is adequate. Assessment: 00:10 General: Appears in no apparent distress, Behavior is appropriate for age, cooperative. tm5 Pain: Location: posterior aspect of left knee Pain currently is 5 out of 10 on a pain scale. Quality of pain is described as throbbing. Neurological: Level of Consciousness is awake, alert, Oriented to person, place, time. Derm: Skin is pink, warm & dry. normal. Musculoskeletal: No deficits noted. Vital Signs: 02 21:38 BP 105 / 66 RA Sitting (auto/reg); Pulse 93; Resp 18; Temp 98.3(O); Pulse Ox 100% on rs6 R/A; Weight 76.2 kg (R); Height 5 ft. 4 in. (162.56 cm) (R); Pain 3/10; 21:38 Body Mass Index 28.84 (76.20 kg, 162.56 cm) rs6 Vitals: 21:38 Log In Time: August 25, 2016 at 21:32. rs6 ED Course: 21:38 Patient visited by Mikaela Mccloud PCA. rs6 21:38 Lu Dean is Private Physician. rs6 21:38 Patient moved to Waiting rs6 21:39 Patient visited by Mikaela Mccloud PCA. rs6 21:39 Patient moved to Pre RCE rs6 21:52 Triage Initiated rs3 23:21 Patient moved to I8 / 16 jo3 03 00:04 [facility] cc10 00:04 Rojas Bansal DO is Attending Physician. cc10 00:04 Patient visited by Ronal Bhakta PA-C. cc10 00:04 Patient visited by Ronal Bhakta PA-C. cc10 00:32 Lu Dean is Referral Physician. cc10 00:41 Patient visited by Mallorie Martinez,KEN. tm5 00:42 The patient / caregiver is instructed regarding the plan of care and ED course. tm5 00:42 No IV's were initiated during this patient's visit. No procedures done that require tm5 assistance. Administered Medications: 00:16 Drug: Acetaminophen 650 mg [acetaminophen 325 mg tablet (2 tabs)] Route: PO; ld5 Order Results: There are currently no results for this order. Outcome: 00:33 Discharge ordered by Provider. cc10 00:42 Discharge Assessment: Patient awake, alert and oriented x 3. No cognitive and/or tm5 functional deficits noted. Patient verbalized understanding of disposition instructions. patient administered narcotics - no. The following High Risk Discharge criteria are identified: None. Discharged to home ambulatory. Condition: good Condition: stable. Discharge instructions given to pt left without discharge instructions. No special radiology studies were completed. Property :Personal belongings accompany Pt. 00:43 Patient left the ED. tm5 Signatures: Cate ZuletaRN RN traci3 Samanta Holley RN RN rs3 Michelle Rodriguez RN RN ld5 Ronal Bhakta PA-C PA-Felicia cc10 Mikaela Mccloud, PROOF MACHINE OPERATOR SUPERVISOR PROOF MACHINE OPERATOR SUPERVISOR rs6 Mallorie Martinez,RN RN tm5 MTDD
--- NOTE | 2016-08-26 00:44 | EDDOCDS ---
Physician Documentation [facility] Name: Phyllis Kim Age: 30 yrs Sex: Female : 1985 Arrival Date: 08/25/2016 Time: 21:37 Bed I8 / Private MD: Lu Dean E Disposition: 08/26/16 00:33 Discharged to Home/Self Care. Impression: Pain in left leg. - Condition is Stable. - Discharge Instructions: Musculoskeletal Pain. - Medication Reconciliation form. - Follow up: Lu Dean; When: Call to arrange an appointment; Reason: Wound/Symptom Recheck, Recheck today's complaints, Worsening of conditions, Continuance of care. - Problem is an ongoing problem. - Symptoms are unchanged. - Notes: May take tylenol as needed for pain. Historical: - Allergies: Bees; IVP dyeblurry vision, nausea and racing heart; Latex (Rash); Percocetdizzy, hot and nauseated; - Home Meds: 1. Advair Diskus Inhl 2 puff 2 times per day 2. albuterol sulfate 90 mcg/actuation Inhl HFAA 2 puffs every 4-6 hours 3. Lovenox Sub-Q once daily - PMHx: Asthma; Concussion; Migraine Headaches; PE (March 21, 2016); - PSHx: none; - Social history: Smoking status: Patient states was never smoker of tobacco. No barriers to communication noted, Speaks appropriately for age. - Family history: Not pertinent. - : The pt / caregiver states he / she is on anticoagulants: Lovenox. Home medication list is obtained from the patient. - Exposure Risk Screening:: None identified. 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 4 in. (162.56 cm) (R); Pain 3/10; 21:38 Body Mass Index 28.84 (76.20 kg, 162.56 cm) rs6 MDM: 08/26 00:07 Acetaminophen Tablet 650 mg PO once ordered. cc10 00:08 US Lower Extremity R/O DVT Ordered. EDMS Administered Medications: 00:16 Drug: Acetaminophen 650 mg [acetaminophen 325 mg tablet (2 tabs)] Route: PO; ld5 Signatures: Dispatcher [employer] EDMS Samanta Holley RN RN rs3 Ronal Bhakta PARukhsanaC PA-C cc10 Mallorie Martinez RN RN tm5 Michelle Rodriguez RN ld5 MTDD
--- NOTE | 2016-08-28 01:44 | EDDOCDS ---
Physician Documentation [facility] Name: Phyllis Kim Age: 30 yrs Sex: Female : 1985 Arrival Date: 08/25/2016 Time: 21:37 Bed I8 / Private MD: Lu Dean E Disposition: 08/26/16 00:33 Discharged to Home/Self Care. Impression: Pain in left leg. - Condition is Stable. - Discharge Instructions: Musculoskeletal Pain. - Medication Reconciliation form. - Follow up: Lu Dean; When: Call to arrange an appointment; Reason: Wound/Symptom Recheck, Recheck today's complaints, Worsening of conditions, Continuance of care. - Problem is an ongoing problem. - Symptoms are unchanged. - Notes: May take tylenol as needed for pain. Historical: - Allergies: Bees; IVP dyeblurry vision, nausea and racing heart; Latex (Rash); Percocetdizzy, hot and nauseated; - Home Meds: 1. Advair Diskus Inhl 2 puff 2 times per day 2. albuterol sulfate 90 mcg/actuation Inhl HFAA 2 puffs every 4-6 hours 3. Lovenox Sub-Q once daily - PMHx: Asthma; Concussion; Migraine Headaches; PE (March 21, 2016); - PSHx: none; - Social history: Smoking status: Patient states was never smoker of tobacco. No barriers to communication noted, Speaks appropriately for age. - Family history: Not pertinent. - : The pt / caregiver states he / she is on anticoagulants: Lovenox. Home medication list is obtained from the patient. - Exposure Risk Screening:: None identified. 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 4 in. (162.56 cm) (R); Pain 3/10; 21:38 Body Mass Index 28.84 (76.20 kg, 162.56 cm) rs6 MDM: 08/26 00:07 Acetaminophen Tablet 650 mg PO once ordered. cc10 00:08 US Lower Extremity R/O DVT Ordered. EDMS 03:35 Financial registration complete. [facility] 09:16 T-Sheet-- Draft Copy was scanned into [employer] and attached to record. gb Administered Medications: 00:16 Drug: Acetaminophen 650 mg [acetaminophen 325 mg tablet (2 tabs)] Route: PO; ld5 00:40 Follow up: Response: No Adverse Reaction; Pain is decreased tm5 Signatures: Dispatcher [employer] EDMS Ioana Ortega, Reg Reg gb Samanta HolleyRN RN rs3 Ronal Bhakta PA-C PA-C cc10 Roselyn Cam [facility] Mallorie Martinez RN RN tm5 Michelle Rodriguez RN ld5 The chart was reviewed and I authenticate all verbal orders and agree with the evaluation and treatment provided.Attachments: 09:16 T-Sheet-- Draft Copy Chart Complete MTDD
--- NOTE | 2016-08-28 01:44 | EDDOCDS ---
Physician Documentation [facility] Name: Phyllis Kim Age: 30 yrs Sex: Female : 1985 Arrival Date: 08/25/2016 Time: 21:37 Bed I8 / Private MD: Lu Dean E Disposition: 08/26/16 00:33 Discharged to Home/Self Care. Impression: Pain in left leg. - Condition is Stable. - Discharge Instructions: Musculoskeletal Pain. - Medication Reconciliation form. - Follow up: Lu Dean; When: Call to arrange an appointment; Reason: Wound/Symptom Recheck, Recheck today's complaints, Worsening of conditions, Continuance of care. - Problem is an ongoing problem. - Symptoms are unchanged. - Notes: May take tylenol as needed for pain. Historical: - Allergies: Bees; IVP dyeblurry vision, nausea and racing heart; Latex (Rash); Percocetdizzy, hot and nauseated; - Home Meds: 1. Advair Diskus Inhl 2 puff 2 times per day 2. albuterol sulfate 90 mcg/actuation Inhl HFAA 2 puffs every 4-6 hours 3. Lovenox Sub-Q once daily - PMHx: Asthma; Concussion; Migraine Headaches; PE (March 21, 2016); - PSHx: none; - Social history: Smoking status: Patient states was never smoker of tobacco. No barriers to communication noted, Speaks appropriately for age. - Family history: Not pertinent. - : The pt / caregiver states he / she is on anticoagulants: Lovenox. Home medication list is obtained from the patient. - Exposure Risk Screening:: None identified. 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 4 in. (162.56 cm) (R); Pain 3/10; 21:38 Body Mass Index 28.84 (76.20 kg, 162.56 cm) rs6 MDM: 08/26 00:07 Acetaminophen Tablet 650 mg PO once ordered. cc10 00:08 US Lower Extremity R/O DVT Ordered. EDMS 03:35 Financial registration complete. [facility] 09:16 T-Sheet-- Draft Copy was scanned into [employer] and attached to record. gb Administered Medications: 00:16 Drug: Acetaminophen 650 mg [acetaminophen 325 mg tablet (2 tabs)] Route: PO; ld5 00:40 Follow up: Response: No Adverse Reaction; Pain is decreased tm5 Signatures: Dispatcher [employer] EDMS Ioana Ortega, Reg Reg gb Samanta HolleyRN RN rs3 Ronal Bhakta PA-C PA-C cc10 Roselyn Cam [facility] Mallorie Martinez RN RN tm5 Michelle Rodriguez RN ld5 The chart was reviewed and I authenticate all verbal orders and agree with the evaluation and treatment provided.Attachments: 09:16 T-Sheet-- Draft Copy Chart Complete MTDD
--- NOTE | 2016-08-28 01:44 | EDDOCDS ---
Nurse's Notes [facility] Name: Phyllis Kim Age: 30 yrs Sex: Female : 1985 Arrival Date: 08/25/2016 Time: 21:37 Bed I8 / 16 Private MD: Lu Dean E Diagnosis: Pain in left leg Presentation: 08/25 21:49 Presenting complaint: Patient states: pain behind L knee for 2 days. worse with rs3 walking. relief with rest. 5 weeks . On Lovenox 0.4 mls SQ daily. Adult Sepsis Screening: The patient does not have new or worsening altered mentation. Patient's respiratory rate is less than 22. Systolic blood pressure is greater than 100. Patient has a qSOFA score of 0- Negative Sepsis Screen. Suicide/Homicide risk assessment- the patient denies having any suicidal and/or homicidal ideations and does not present with any other emotional, behavioral or mental health complaints. Status: Patient is not a delivery driver/customer service or dependent. Transition of care: patient was not received from another setting of care. 21:49 Acuity: STEPHIE Level 4 rs3 21:49 Method Of Arrival: Walkin/Carried/Asstd rs3 Triage Assessment: 21:52 General: Appears in no apparent distress. Pain: Location: posterior aspect of left rs3 knee. HIV screening NA for this visit Offered previously. 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 Advair Diskus Inhl 2 puff 2 times per day 2. albuterol sulfate 90 mcg/actuation Inhl HFAA 2 puffs every 4-6 hours 3. Lovenox Sub-Q once daily - PMHx: Asthma; Concussion; Migraine Headaches; PE (March 21, 2016); - PSHx: none; - Social history: Smoking status: Patient states was never smoker of tobacco. No barriers to communication noted, Speaks appropriately for age. - Family history: Not pertinent. - : The pt / caregiver states he / she is on anticoagulants: Lovenox. Home medication list is obtained from the patient. - Exposure Risk Screening:: None identified. Screenin/03 00:10 Screening information is obtained from the patient. Fall risk: No risks identified. tm5 Assistance ADL's: requires no assistance with activities of daily living. Abuse/DV Screen: The patient / caregiver reports he/she is: not in a situation that causes fear, pain or injury. Nutritional screening: No deficits noted. Advance Directives: There is no active DNR order. home support is adequate. Assessment: 00:10 General: Appears in no apparent distress, Behavior is appropriate for age, cooperative. tm5 Pain: Location: posterior aspect of left knee Pain currently is 5 out of 10 on a pain scale. Quality of pain is described as throbbing. Neurological: Level of Consciousness is awake, alert, Oriented to person, place, time. Derm: Skin is pink, warm & dry. normal. Musculoskeletal: No deficits noted. Vital Signs: 02 21:38 BP 105 / 66 RA Sitting (auto/reg); Pulse 93; Resp 18; Temp 98.3(O); Pulse Ox 100% on rs6 R/A; Weight 76.2 kg (R); Height 5 ft. 4 in. (162.56 cm) (R); Pain 3/10; 21:38 Body Mass Index 28.84 (76.20 kg, 162.56 cm) rs6 Vitals: 21:38 Log In Time: August 25, 2016 at 21:32. rs6 ED Course: 21:38 Patient visited by Mikaela Mccloud PCA. rs6 21:38 Lu Dean is Private Physician. rs6 21:38 Patient moved to Waiting rs6 21:39 Patient visited by Mikaela Mccloud PCA. rs6 21:39 Patient moved to Pre RCE rs6 21:52 Triage Initiated rs3 23:21 Patient moved to I8 / 16 jo3 03 00:04 Ronal Bhak[facility]-C [facility] cc10 00:04 Rojas Bansal DO is Attending Physician. cc10 00:04 Patient visited by Ronal Bhakta PA-C. cc10 00:04 Patient visited by Ronal Bhakta PA-C. cc10 00:32 Lu Dean is Referral Physician. cc10 00:41 Patient visited by Mallorie Martinez RN. tm5 00:42 The patient / caregiver is instructed regarding the plan of care and ED course. tm5 00:42 No IV's were initiated during this patient's visit. No procedures done that require tm5 assistance. 01:07 US Lower Extremity R/O DVT Returned. EDPR 09:16 T-Sheet-- Draft Copy was scanned into [employer] and attached to record. gb Administered Medications: 00:16 Drug: Acetaminophen 650 mg [acetaminophen 325 mg tablet (2 tabs)] Route: PO; ld5 00:40 Follow up: Response: No Adverse Reaction; Pain is decreased tm5 Order Results: Radiology Order: US Lower Extremity R/O DVT Test: US Lower Extremity R/O DVT REASON FOR EXAMINATION: pain; ; CLINICAL HISTORY: Edema.; COMMENTS:; Real time sonography with duplex doppler of the left lower extremity was performed with attention to; the major deep venous structures.; Evaluation reveals the left common femoral, superficial femoral and popliteal veins to be completely; compressible without intraluminal thrombus. There is normal spontaneous phasic flow and augmentation.; The greater saphenous/common femoral vein junction is patent.; IMPRESSION:; No evidence of DVT in left lower extremity..; Thank you for your kind referral of this patient.; ; Outcome: 00:33 Discharge ordered by Provider. cc10 00:42 Discharge Assessment: Patient awake, alert and oriented x 3. No cognitive and/or tm5 functional deficits noted. Patient verbalized understanding of disposition instructions. patient administered narcotics - no. The following High Risk Discharge criteria are identified: None. Discharged to home ambulatory. Condition: good Condition: stable. Discharge instructions given to pt left without discharge instructions. No special radiology studies were completed. Property :Personal belongings accompany Pt. 00:43 Patient left the ED. tm5 Signatures: Dispatcher [employer] EDPR Ioana Ortega, Reg Reg Cate BustillosRN RN traci3 Samanta Holley RN RN rs3 Michelle Rodriguez RN RN ld5 Ronal Bhakta, PA-C PA-C cc10 Mikaela Mccloud, FUND MANAGER FUND MANAGER rs6 Mallorie Martinez,RN RN tm5 Chart Complete MTDD
== END 2016-08-26 00:43 | disposition home or self-care (01) ==
LOC: M ED 21:37
DX: M25.562 Pain in left knee (principal); J45.909 Unspecified asthma, uncomplicated; Z86.711 Personal history of pulmonary embolism; Z79.01 Long term (current) use of anticoagulants; Z79.51 Long term (current) use of inhaled steroids; Z88.5 Allergy status to narcotic agent; Z91.030 Bee allergy status; Z91.040 Latex allergy status; Z91.041 Radiographic dye allergy status

== ENCOUNTER 2016-08-31 18:06 | Emergency (ER) | payer OTHER ==
[2016-08-31] MEDS ORDERED: ACETAMINOPHEN 325 MG TAB As Ordered ONE (18:58)
[2016-08-31 19:22] LABS: MEAN CORPUSCULAR HEMOGLOBIN 27.8 pg (27.0-33.0); MEAN CORPUSCULAR HGB CONC 33.6 g/dl (32.0-36.5); MEAN CORPUSCULAR VOLUME 82.7 fl (80.0-96.0); RED CELL DISTRIBUTION WIDTH 13.6 % (11.5-14.5); WHITE BLOOD COUNT 8.7 K/mm3 (4.0-10.0)
[2016-08-31 19:29] LABS: INR 1.06
[2016-08-31 19:57] LABS: ANION GAP 11 MEQ/L (8-16); BLOOD UREA NITROGEN 6 MG/DL (7-18); CALCIUM LEVEL 8.6 MG/DL (8.5-10.1); CARBON DIOXIDE LEVEL 24 MEQ/L (21-32); CHLORIDE LEVEL 109 MEQ/L (98-107); CREATININE FOR GFR 0.72 MG/DL (0.55-1.02); GLOMERULAR FILTRATION RATE > 60.0 (>60); GLUCOSE, FASTING 93 MG/DL (70-105); HCG, SERUM QUANTITATIVE 2197 MIU/ML; POTASSIUM SERUM 3.6 MEQ/L (3.5-5.1); SODIUM LEVEL 144 MEQ/L (136-145)
--- NOTE | 2016-08-31 20:30 | REPUSA ---
HISTORY: with pelvic pain. LMP 07/16/2016. COMPARISON : None FINDINGS: Ultrasound examination of the pelvis was performed using transabdominal technique with grayscale, col or Doppler flow and spectral waveform analysis The anteverted uterus measured 5.2 x 5.0 x 5.8 cm without masses. There is a gestational sac with a mean sac diameter of 7 mm correlating to 5 weeks, 3 days gestation, although located in the lower uterine segment. No yolk sac or pole identified. The right ovary measured 2.2 x 1.9 x 1.8 cm and the left ovary measured 2.1 x 1.6 x 1.6 cm. There is a 1.3 x 1.1 x 0.9 cm right ovarian hemorrhagic versus complex cyst. Trace free fluid. IMPRESSION: Low-lying gestational sac identified. While findings may represent an early IUP, suspicion is raised for an impending . An ectopic while not definitively excluded, is a lesser consider ation given presence of intrauterine gestational sac. Close clinical follow-up with serial beta hCG a nd short interim pelvic ultrasound recommended to ensure a viable developing gestation and to exclude .
--- NOTE | 2016-08-31 21:34 | EDDOCDS ---
Nurse's Notes [facility] Name: Phyllis Kim Age: 30 yrs Sex: Female : 1985 Arrival Date: 08/31/2016 Time: 18:06 Bed I3 / M3 Private MD: Calixto Felicia Diagnosis: Threatened Presentation: 08/31 18:14 Presenting complaint: Patient states: IM 6.5 weeks and started bleeding hs1 yesterday. Patient reports bleeding increasing and cramping all day. Patient was told by OB to go to [place] and have levels checked, because patient is on blood thinners. Patient reports count was 4000. Patient is supposed to have levels checked again tomorrow, however comes here due to intense pain. Risk factors: The patient reports no loss of conciousness prior to arrival. This patient has not had a hysterectomy. This patient has not begun menopause. Adult Sepsis Screening: The patient does not have new or worsening altered mentation. Patient's respiratory rate is less than 22. Systolic blood pressure is greater than 100. Patient has a qSOFA score of 0- Negative Sepsis Screen. Suicide/Homicide risk assessment- the patient denies having any suicidal and/or homicidal ideations and does not present with any other emotional, behavioral or mental health complaints. Status: The patient is a dependent. Transition of care: patient was not received from another setting of care. 18:14 Acuity: STEPHIE Level 3 hs1 18:14 Method Of Arrival: Walkin/Carried/Asstd hs1 Triage Assessment: 18:17 General: Appears uncomfortable, Behavior is crying. Pain: Location: pelvis Pain hs1 currently is 10 out of 10 on a pain scale. HIV screening NA for this visit Offered previously. : Reports vaginal bleeding that is moderate flow wearing a pad. Patient states having to change pad 3 hours. 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 Advair Diskus Inhl 2 puff 2 times per day 2. albuterol sulfate 90 mcg/actuation Inhl HFAA 2 puffs every 4-6 hours 3. Lovenox 40 mg/0.4 mL subcutaneous syrg 0.4 mL once daily - PMHx: Asthma; Concussion; Migraine Headaches; PE (March 21, 2016); - PSHx: none; - Social history: Smoking status: Patient states was never smoker of tobacco. No barriers to communication noted, The patient speaks fluent Israeli, Speaks appropriately for age. - Family history: Not pertinent. - : The pt / caregiver states he / she is not on anticoagulants. Home medication list is obtained from the patient. - Exposure Risk Screening:: None identified. Screenin:04 Screening information is obtained from the patient. Fall risk: No risks identified. jmb Assistance ADL's: requires no assistance with activities of daily living. Abuse/DV Screen: The patient / caregiver reports he/she is: not in a situation that causes fear, pain or injury. Nutritional screening: No deficits noted. home support is adequate. 21:32 Advance Directives: There is no active DNR order. mb9 Assessment: 18:27 General: Appears distressed, uncomfortable, Behavior is crying. Pain: Location: dsf suprapubic area, right lower quadrant and left lower quadrant Pain currently is 10 out of 10 on a pain scale. Quality of pain is described as crampy. Neurological: Level of Consciousness is awake, alert. Cardiovascular: Capillary refill < 3 seconds. Respiratory: Airway is patent Respiratory effort is even, unlabored, Respiratory pattern is regular, symmetrical, Breath sounds are clear bilaterally. GI: Abdomen is non- distended Bowel sounds present X 4 quads. Abd is soft and non tender X 4 quads. : Reports vaginal bleeding that is bright red moderate flow since 2 days ago. Derm: Skin is pink, warm & dry. 19:04 General: Appears uncomfortable, Behavior is crying. Pain: Location: abdomen and left jmb lower quadrant and right lower quadrant and suprapubic area and pelvis Pain currently is 9 out of 10 on a pain scale. Neurological: Level of Consciousness is awake, alert, obeys commands, Oriented to person, place, time, Timber Estimator are equal bilaterally Speech is normal, Facial symmetry appears normal, Facial symmetry: tongue is midline. Cardiovascular: Capillary refill < 3 seconds Heart tones S1 S2 present Pulses are all present. Respiratory: Airway is patent Respiratory effort is even, unlabored, Respiratory pattern is regular, symmetrical, Breath sounds are clear bilaterally. GI: Abdomen is non- distended Bowel sounds present X 4 quads. Abd is soft X 4 quads. Derm: Skin is pink, warm & dry. Musculoskeletal: Range of motion intact in all extremities. 20:17 General: Appears in no apparent distress, Behavior is appropriate for age, cooperative. jmb General: Patient laying on stretcher with friend at bedside. NO voiced complaints at this time. . Pain: Location: abdomen and left lower quadrant and right lower quadrant and suprapubic area and pelvis Pain currently is 4 out of 10 on a pain scale. Neurological: Level of Consciousness is awake, alert, obeys commands, Oriented to person, place, time. Respiratory: Airway is patent Respiratory effort is even, unlabored, Respiratory pattern is regular, symmetrical. 21:04 General: Appears in no apparent distress, Behavior is appropriate for age, cooperative. jmb Neurological: Level of Consciousness is awake, alert, obeys commands, Oriented to person, place, time. Respiratory: Airway is patent Respiratory effort is even, unlabored, Respiratory pattern is regular, symmetrical. Vital Signs: 18:09 BP 116 / 73; Pulse 86; Resp 18; Temp 97.8(O); Pulse Ox 100% on R/A; Weight 74.84 kg ct3 (R); Height 5 ft. 4 in. (162.56 cm) (R); Pain 10/10; 21:32 BP 104 / 76; Pulse 75; Resp 18; Temp 96.8; Pulse Ox 100% on R/A; mb9 18:09 Body Mass Index 28.32 (74.84 kg, 162.56 cm) ct3 Vitals: 18:09 Log In Time: August 31, 2016 at 18:07. RN notified that patient meets Red Flag ct3 criteria. ED Course: 18:08 Patient visited by Marga Llanes PCA. ct3 18:08 Patient moved to Waiting ct3 18:09 Calixto [facility] is Private Physician. ct3 18:10 Patient visited by Marga Llanes PCA. ct3 18:16 Triage Initiated hs1 18:18 Cate Brewer, KEN is Primary Nurse. hs1 18:18 Nataliia Lopez,KEN is Primary Nurse. hs1 18:18 Patient moved to I3 / M3 hs1 18:28 Patient visited by Flavia Muir RN. dsf 18:33 Orestes cD PA is PHCP. mo1 18:33 Kevin Ayala MD is Attending Physician. mo1 18:55 Patient visited by Orestes Dc PA. mo1 19:04 The patient / caregiver is instructed regarding the plan of care and ED course. jmb 19:04 Pt & Aptt Sent. jmb 19:04 BMP Sent. jmb 19:04 Complete Blood Count Sent. jmb 19:04 Hcg, Serum Quantitative Sent. jmb 19:04 Type & Screen Sent. jmb 19:04 Inserted saline lock: 20 gauge in left antecubital area and blood collected. The b patient tolerated the procedure well. Labs drawn. (by ED staff). Sent per order to lab. 19:06 Patient visited by Hasmukh Garza RN. jmb 19:31 Verbal reassurance given. Warm blanket given. Assisted to bedside commode. Linen ajs changed. PT GIVEN CLEAN [employer] [place] AND UNDERWEAR. 19:31 Urine Culture Sent. ajs 19:31 Urinalysis Sent. ajs 19:32 Patient visited by Leslie Chakraborty. ajs 19:43 Patient moved to Ultrasound br3 20:13 [facility] Payment Agreement was scanned into Qriket and attached to record. gjb 20:15 Patient moved to I3 / M3 br3 20:19 Patient visited by Hasmukh Garza RN. jmb 21:04 Patient visited by Hasmukh Garza RN. jmb 21:15 US 1st trimester Returned. EDMS 21:23 Ortega Hennessy MD is Referral Physician. mo1 21:29 Primary Nurse role handed off by Cate Brewer RN pc 21:32 Discontinued IV lock intact, bleeding controlled, pressure dressing applied, No mb9 redness/swelling at site. No procedures done that require assistance. Administered Medications: 19:04 Drug: Acetaminophen 975 mg [acetaminophen 325 mg tablet (3 tabs)] Route: PO; ja5 19:05 Drug: NS 0.9% 1000 ml [sodium chloride 0.9 % intravenous solution] Route: IV; Rate: ja5 bolus; Site: left antecubital; Order Results: Lab Order: Complete Blood Count; [facility] 08/31/16 19:01 Test: WHITE BLOOD COUNT; Value: 8.7; Range: 4.0-10.0; Units: K/mm3; Status: F Test: RED BLOOD COUNT; Value: 4.28; Range: 4.00-5.40; Units: M/mm3; Status: F Test: HEMOGLOBIN; Value: 11.9; Range: 12.0-16.0; Abnormal: Below low normal; Units: g/dl; Status: F Test: HEMATOCRIT; Value: 35.4; Range: 36.0-47.0; Abnormal: Below low normal; Units: %; Status: F Test: MEAN CORPUSCULAR VOLUME; Value: 82.7; Range: 80.0-96.0; Units: fl; Status: F Test: MEAN CORPUSCULAR HEMOGLOBIN; Value: 27.8; Range: 27.0-33.0; Units: pg; Status: F Test: MEAN CORPUSCULAR HGB CONC; Value: 33.6; Range: 32.0-36.5; Units: g/dl; Status: F Test: RED CELL DISTRIBUTION WIDTH; Value: 13.6; Range: 11.5-14.5; Units: %; Status: F Test: PLATELET COUNT, AUTOMATED; Value: 328; Range: 150-450; Units: k/mm3; Status: F Lab Order: Hcg, Serum Quantitative; [facility] 08/31/16 19:01 Test: HCG, SERUM QUANTITATIVE; Value: 2197; Units: MIU/ML; Status: F Test Note: ; GESTATIONAL AGE APPROXIMATE HCG RANGE (MIU/ML) 0.2-1 WEEK 5-50 1-2 WEEKS 50-500 2-3 WEEKS 100-5,000 3-4 WEEKS 500-10,000 4-5 WEEKS 1,000-50,000 5-6 WEEKS 10,000-100,000 6-8 WEEKS 15,000-200,000 2-3 MONTHS 10,000-100,000 NON FEMALES LESS THAN 3.0 Patient samples may contain human heterophilic antibodies that could react with immunoassays to give falsely elevated or depressed results. This assay has been designed to minimize interference from heterophilic antibodies. Elevated hCG levels have also been associated with trophoblastic disease and nontrophoblastic neoplasms. The possibility of having these diseases should be considered before a diagnosis of is made. This test is not intended for use as a surrogate marker for aiding in the diagnosis or monitoring the treatment of cancer patients. [employer] [place] methodology. Lab Order: Type & Screen; [facility] 08/31/16 19:01 Test: BLOOD TYPE; Value: A POS; Status: F Test: AB SCREEN (INDIRECT CHASTITY)VIS; Value: NEGATIVE; Status: F Lab Order: Urinalysis; [facility] 08/31/16 19:01 Test: APPEARANCE, URINE; Value: CLEAR; Range: CLEAR; Status: F Test: COLOR, URINE; Value: STRAW; Range: YELLOW; Status: F Test: PH,URINE; Value: 8.0; Range: 5.0-9.0; Units: UNITS; Status: F Test: SPECIFIC GRAVITY URINE AUTO; Value: 1.002; Range: 1.002-1.035; Status: F Test: PROTEIN, URINE AUTO; Value: NEGATIVE; Range: NEGATIVE; Units: mg/dL; Status: F Test: GLUCOSE, URINE (UA) AUTO; Value: NEGATIVE; Range: NEGATIVE; Units: mg/dL; Status: F Test: KETONE, URINE AUTO; Value: NEGATIVE; Range: NEGATIVE; Units: mg/dL; Status: F Test: UROBILINOGEN, URINE AUTO; Value: 0.2; Range: 0.0-2.0; Units: mg/dL; Status: F Test: BILIRUBIN, URINE AUTO; Value: NEGATIVE; Range: NEGATIVE; Status: F Test: NITRITE, URINE AUTO; Value: NEGATIVE; Range: NEGATIVE; Status: F Test: LEUKOCYTE ESTERASE, URINE AUTO; Value: TRACE; Range: NEGATIVE; Abnormal: Above high normal; Status: F Test: BLOOD, URINE BLOOD; Value: 3+; Range: NEGATIVE; Abnormal: Above high normal; Status: F Test: WBC, URINE AUTO; Value: 4; Range: 0-3; Abnormal: Above high normal; Units: /HPF; Status: F Test: RBC, URINE AUTO; Value: 32; Range: 0-3; Abnormal: Above high normal; Units: /HPF; Status: F Test: BACTERIA, URINE AUTO; Value: NEGATIVE; Range: NEGATIVE; Status: F Test: SQUAMOUS EPITHELIAL CELL UR AU; Value: 0; Range: 0-6; Units: /HPF; Status: F Test: MUCUS, URINE; Value: SMALL; Range: NEGATIVE; Status: F Test: HYALINE CAST, URINE AUTO; Value: 0; Range: 0-1; Units: /LPF; Status: F Test: AMORPHOUS SEDIMENT; Value: SMALL; Range: NEGATIVE; Abnormal: Above high normal; Status: F Lab Order: BMP; [facility] 08/31/16 19:01 Test: GLUCOSE, FASTING; Value: 93; Range: 70-105; Units: MG/DL; Status: F Test: BLOOD UREA NITROGEN; Value: 6; Range: 7-18; Abnormal: Below low normal; Units: MG/DL; Status: F Test: CREATININE FOR GFR; Value: 0.72; Range: 0.55-1.02; Units: MG/DL; Status: F Test: GLOMERULAR FILTRATION RATE; Value: > 60.0; Range: >60; Status: F Test: SODIUM LEVEL; Value: 144; Range: 136-145; Units: MEQ/L; Status: F Test: POTASSIUM SERUM; Value: 3.6; Range: 3.5-5.1; Units: MEQ/L; Status: F Test: CHLORIDE LEVEL; Value: 109; Range: 98-107; Abnormal: Above high normal; Units: MEQ/L; Status: F Test: CARBON DIOXIDE LEVEL; Value: 24; Range: 21-32; Units: MEQ/L; Status: F Test: ANION GAP; Value: 11; Range: 8-16; Units: MEQ/L; Status: F Test: CALCIUM LEVEL; Value: 8.6; Range: 8.5-10.1; Units: MG/DL; Status: F Test Note: ; Units are mL/min/1.73 m2 Chronic Kidney Disease Staging per NKF: Stage I & II GFR >=60 Normal to Mildly Decreased Stage III GFR 30-59 Moderately Decreased Stage IV GFR 15-29 Severely Decreased Stage V GFR <15 Very Little GFR Left ESRD GFR <15 on FAMILY CONSUMER SCIENCE TEACHER Lab Order: Pt & Aptt; SPEC'M 08/31/16 19:01 Test: PROTHROMBIN TIME; Value: 13.9; Range: 12.3-14.5; Units: SECONDS; Status: F Test: INR; Value: 1.06; Status: F Test: PARTIAL THROMBOPLASTIN TIME; Value: 32.7; Range: 26.6-37.1; Units: SECONDS; Status: F Test Note: ; THERAPUTIC HUMAN INR VALUES INDICATIONS NORMAL RANGES PROPHYLAXIS/TREATMENT OF: VENOUS THROMBOSIS 2.0-3.0 PULMONARY EMBOLISM 2.0-3.0 PREVENTION OF SYSTEMIC EMBOLISM FROM: TISSUE HEART VALVES 2.0-3.0 ACUTE MYOCARDIAL INFARCTION 2.0-3.0 VALVULAR HEART DISEASE 2.0-3.0 ATRIAL FIBRILLATION 2.0-3.0 MECHANICAL VALVES(HIGH RISK) 2.5-3.5 RECURRENT MYOCARDIAL INFARCTION 2.5-3.5 Radiology Order: US 1st trimester Test: US 1st trimester REASON FOR EXAMINATION: pelvic pain 6.5wks preg; ; HISTORY: with pelvic pain. LMP 07/16/2016.; COMPARISON : None; FINDINGS:; Ultrasound examination of the pelvis was performed using transabdominal technique with grayscale, col; or Doppler flow and spectral waveform analysis; The anteverted uterus measured 5.2 x 5.0 x 5.8 cm without masses.; There is a gestational sac with a mean sac diameter of 7 mm correlating to 5 weeks, 3 days gestation,; although located in the lower uterine segment. No yolk sac or pole identified.; The right ovary measured 2.2 x 1.9 x 1.8 cm and the left ovary measured 2.1 x 1.6 x 1.6 cm. There is; a 1.3 x 1.1 x 0.9 cm right ovarian hemorrhagic versus complex cyst.; Trace free fluid.; IMPRESSION:; Low-lying gestational sac identified. While findings may represent an early IUP, suspicion is raised; for an impending . An ectopic while not definitively excluded, is a lesser consider; ation given presence of intrauterine gestational sac. Close clinical follow-up with serial beta hCG a; nd short interim pelvic ultrasound recommended to ensure a viable developing gestation and to exclude; .; ; Outcome: 21:23 Discharge ordered by Provider. mo1 21:32 Discharge Assessment: Patient awake, alert and oriented x 3. No cognitive and/or mb9 functional deficits noted. Patient verbalized understanding of disposition instructions. patient administered narcotics - no. The following High Risk Discharge criteria are identified: None. Discharged to home ambulatory. Condition: good Condition: stable Condition: improved. Discharge instructions given to patient, Instructed on discharge instructions, follow up and referral plans. medication usage, Demonstrated understanding of instructions, medications, Pt was receptive of discharge instructions/ teaching. No special radiology studies were completed. Property :Personal belongings accompany Pt. 21:34 Patient left the ED. mb9 Signatures: Dispatcher MedHost EDMS Justen Nunez MD MD pc Raymond, Brianne br3 Audrey Reyes RN RN hs1 Marga Llanes, BREWERY PUMPER BREWERY PUMPER ct3 Flavia Muir,RN RN Leslie Cleaning Michael, PA PA mo1 Becker, JoshuaRN RN Orestes RiderRN RN mb9 Dalia Hernandez Jessica,RN RN ja5 GERARD
--- NOTE | 2016-08-31 21:34 | EDDOCDS ---
Physician Documentation [facility] Name: Phyllis Kim Age: 30 yrs Sex: Female : 1985 Arrival Date: 08/31/2016 Time: 18:06 Bed I3 / M3 Private MD: Calixto [facility] [place] Disposition: 08/31/16 21:23 Discharged to Home/Self Care. Impression: Threatened . - Condition is Stable. - Discharge Instructions: Threatened Miscarriage. - Medication Reconciliation, Local Pharmacy Hours form. - Follow up: Ortega Hennessy MD; When: Call to arrange an appointment; Reason: Recheck today's complaints, Continuance of care. - Problem is new. - Symptoms are unchanged. Historical: - Allergies: Bees; IVP dyeblurry vision, nausea and racing heart; Latex (Rash); Percocetdizzy, hot and nauseated; - Home Meds: 1. Advair Diskus Inhl 2 puff 2 times per day 2. albuterol sulfate 90 mcg/actuation Inhl HFAA 2 puffs every 4-6 hours 3. Lovenox 40 mg/0.4 mL subcutaneous syrg 0.4 mL once daily - PMHx: Asthma; Concussion; Migraine Headaches; PE (March 21, 2016); - PSHx: none; - Social history: Smoking status: Patient states was never smoker of tobacco. No barriers to communication noted, The patient speaks fluent Honduran, Speaks appropriately for age. - Family history: Not pertinent. - : The pt / caregiver states he / she is not on anticoagulants. Home medication list is obtained from the patient. - Exposure Risk Screening:: None identified. 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 4 in. (162.56 cm) (R); Pain 10/10; 21:32 BP 104 / 76; Pulse 75; Resp 18; Temp 96.8; Pulse Ox 100% on R/A; mb9 18:09 Body Mass Index 28.32 (74.84 kg, 162.56 cm) ct3 MDM: 18:52 IV Saline Lock ordered. mo1 18:52 Undress patient appropriately for examination ordered. mo1 18:52 NS 0.9% 1000 ml IV at bolus once ordered. mo1 18:52 Acetaminophen Tablet 975 mg PO once ordered. mo1 18:53 Complete Blood Count Ordered. EDMS 18:53 Hcg, Serum Quantitative Ordered. EDMS 18:53 Type & Screen Ordered. EDMS 18:53 Urinalysis Ordered. EDMS 18:53 Urine Culture Ordered. EDMS 18:53 BMP Ordered. EDMS 18:53 US 1st trimester Ordered. EDMS 18:56 Set up pelvic ordered. mo1 19:02 Pt & Aptt Ordered. EDMS 19:40 Financial registration complete. gjb 19:45 Complete Blood Count Reviewed. mo1 19:46 Pt & Aptt Reviewed. mo1 20:07 TRANSVAGINAL US Ordered. EDMS 20:07 DUPLEX SCAN LIMITED (DOPPLER) Ordered. EDMS 20:09 BMP Reviewed. mo1 20:10 Hcg, Serum Quantitative Reviewed. mo1 20:13 [facility] Payment Agreement was scanned into PacerPro and attached to record. gjb 20:53 Urinalysis Reviewed. mo1 21:08 Type & Screen Reviewed. mo1 Administered Medications: 19:04 Drug: Acetaminophen 975 mg [acetaminophen 325 mg tablet (3 tabs)] Route: PO; ja5 19:05 Drug: NS 0.9% 1000 ml [sodium chloride 0.9 % intravenous solution] Route: IV; Rate: ja5 bolus; Site: left antecubital; Signatures: Dispatcher MedHost EDMS Audrey Reyes RN RN hs1 Orestes Dc PA PA mo1 Hasmukh Garza RN RN jmb Belles, Michael, RN RN rola9 Dalia Hernandez Jessica RN ja5 The chart was reviewed and I authenticate all verbal orders and agree with the evaluation and treatment provided.Corrections: (The following items were deleted from the chart) 21:03 18:57 Chlamydia & GC Amplification+LAB ordered. EDMS EDMS 21:04 18:57 WET PREP+BREEZY ordered. EDMS EDMS Attachments: 20:13 [facility] Payment Agreement gjb MTDD
--- NOTE | 2016-09-02 22:34 | EDDOCDS ---
Physician Documentation [facility] Name: Phyllis Kim Age: 30 yrs Sex: Female : 1985 Arrival Date: 08/31/2016 Time: 18:06 Bed I3 / M3 Private MD: [place]ixto [facility] [place]: 08/31/16 21:23 Discharged to Home/Self Care. Impression: Threatened . - Condition is Stable. - Discharge Instructions: Threatened Miscarriage. - Medication Reconciliation, Local Pharmacy Hours form. - Follow up: Ortega Hennessy MD; When: Call to arrange an appointment; Reason: Recheck today's complaints, Continuance of care. - Problem is new. - Symptoms are unchanged. Historical: - Allergies: Bees; IVP dyeblurry vision, nausea and racing heart; Latex (Rash); Percocetdizzy, hot and nauseated; - Home Meds: 1. Advair Diskus Inhl 2 puff 2 times per day 2. albuterol sulfate 90 mcg/actuation Inhl HFAA 2 puffs every 4-6 hours 3. Lovenox 40 mg/0.4 mL subcutaneous syrg 0.4 mL once daily - PMHx: Asthma; Concussion; Migraine Headaches; PE (March 21, 2016); - PSHx: none; - Social history: Smoking status: Patient states was never smoker of tobacco. No barriers to communication noted, The patient speaks fluent Czech, Speaks appropriately for age. - Family history: Not pertinent. - : The pt / caregiver states he / she is not on anticoagulants. Home medication list is obtained from the patient. - Exposure Risk Screening:: None identified. 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 4 in. (162.56 cm) (R); Pain 10/10; 21:32 BP 104 / 76; Pulse 75; Resp 18; Temp 96.8; Pulse Ox 100% on R/A; mb9 18:09 Body Mass Index 28.32 (74.84 kg, 162.56 cm) ct3 MDM: 18:52 IV Saline Lock ordered. mo1 18:52 Undress patient appropriately for examination ordered. mo1 18:52 NS 0.9% 1000 ml IV at bolus once ordered. mo1 18:52 Acetaminophen Tablet 975 mg PO once ordered. mo1 18:53 Complete Blood Count Ordered. EDMS 18:53 Hcg, Serum Quantitative Ordered. EDMS 18:53 Type & Screen Ordered. EDMS 18:53 Urinalysis Ordered. EDMS 18:53 Urine Culture Ordered. EDMS 18:53 BMP Ordered. EDMS 18:53 US 1st trimester Ordered. EDMS 18:56 Set up pelvic ordered. mo1 19:02 Pt & Aptt Ordered. EDMS 19:40 Financial registration complete. gjb 19:45 Complete Blood Count Reviewed. mo1 19:46 Pt & Aptt Reviewed. mo1 20:07 TRANSVAGINAL US Ordered. EDMS 20:07 DUPLEX SCAN LIMITED (DOPPLER) Ordered. EDMS 20:09 BMP Reviewed. mo1 20:10 Hcg, Serum Quantitative Reviewed. mo1 20:13 [facility] Payment Agreement was scanned into KSKT and attached to record. gjb 20:53 Urinalysis Reviewed. mo1 21:08 Type & Screen Reviewed. mo1 09/01 09:17 T-Sheet-- Draft Copy was scanned into KSKT and attached to record. gb 09:18 Radiology Report was scanned into KSKT and attached to record. gb Administered Medications: 08/31 19:04 Drug: Acetaminophen 975 mg [acetaminophen 325 mg tablet (3 tabs)] Route: PO; ja5 19:05 Drug: NS 0.9% 1000 ml [sodium chloride 0.9 % intravenous solution] Route: IV; Rate: ja5 bolus; Site: left antecubital; Signatures: Dispatcher MedHost EDMS Ioana Ortega, Ovidio Reg gb Audrey Reyes, KEN RN hs1 Orestes Dc PA PA mo1 Hasmukh Garza RN RN jmb Belles, Michael, RN RN rola9 Dalia Hernandez Jessica RN ja5 The chart was reviewed and I authenticate all verbal orders and agree with the evaluation and treatment provided.Corrections: (The following items were deleted from the chart) 21: 18:57 Chlamydia & GC Amplification+LAB ordered. EDMS EDMS 21: 18:57 WET PREP+BREEZY ordered. EDMS EDMS Attachments: 20:13 [facility] Payment Agreement gjb 09/01 09:17 T-Sheet-- Draft Copy gb Chart Complete MTDD
--- NOTE | 2016-09-02 22:34 | EDDOCDS ---
Physician Documentation [facility] Name: Phyllis Kim Age: 30 yrs Sex: Female : 1985 Arrival Date: 08/31/2016 Time: 18:06 Bed I3 / M3 Private MD: Calixto [facility] [place] Disposition: 08/31/16 21:23 Discharged to Home/Self Care. Impression: Threatened . - Condition is Stable. - Discharge Instructions: Threatened Miscarriage. - Medication Reconciliation, Local Pharmacy Hours form. - Follow up: Ortega Hennessy MD; When: Call to arrange an appointment; Reason: Recheck today's complaints, Continuance of care. - Problem is new. - Symptoms are unchanged. Historical: - Allergies: Bees; IVP dyeblurry vision, nausea and racing heart; Latex (Rash); Percocetdizzy, hot and nauseated; - Home Meds: 1. Advair Diskus Inhl 2 puff 2 times per day 2. albuterol sulfate 90 mcg/actuation Inhl HFAA 2 puffs every 4-6 hours 3. Lovenox 40 mg/0.4 mL subcutaneous syrg 0.4 mL once daily - PMHx: Asthma; Concussion; Migraine Headaches; PE (March 21, 2016); - PSHx: none; - Social history: Smoking status: Patient states was never smoker of tobacco. No barriers to communication noted, The patient speaks fluent Azeri, Speaks appropriately for age. - Family history: Not pertinent. - : The pt / caregiver states he / she is not on anticoagulants. Home medication list is obtained from the patient. - Exposure Risk Screening:: None identified. 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 4 in. (162.56 cm) (R); Pain 10/10; 21:32 BP 104 / 76; Pulse 75; Resp 18; Temp 96.8; Pulse Ox 100% on R/A; mb9 18:09 Body Mass Index 28.32 (74.84 kg, 162.56 cm) ct3 MDM: 18:52 IV Saline Lock ordered. mo1 18:52 Undress patient appropriately for examination ordered. mo1 18:52 NS 0.9% 1000 ml IV at bolus once ordered. mo1 18:52 Acetaminophen Tablet 975 mg PO once ordered. mo1 18:53 Complete Blood Count Ordered. EDMS 18:53 Hcg, Serum Quantitative Ordered. EDMS 18:53 Type & Screen Ordered. EDMS 18:53 Urinalysis Ordered. EDMS 18:53 Urine Culture Ordered. EDMS 18:53 BMP Ordered. EDMS 18:53 US 1st trimester Ordered. EDMS 18:56 Set up pelvic ordered. mo1 19:02 Pt & Aptt Ordered. EDMS 19:40 Financial registration complete. gjb 19:45 Complete Blood Count Reviewed. mo1 19:46 Pt & Aptt Reviewed. mo1 20:07 TRANSVAGINAL US Ordered. EDMS 20:07 DUPLEX SCAN LIMITED (DOPPLER) Ordered. EDMS 20:09 BMP Reviewed. mo1 20:10 Hcg, Serum Quantitative Reviewed. mo1 20:13 [facility] [place] Payment Agreement was scanned into [employer] and attached to record. gjb 20:53 Urinalysis Reviewed. mo1 21:08 Type & Screen Reviewed. mo1 09/01 09:17 T-Sheet-- Draft Copy was scanned into [employer] and attached to record. gb 09:18 Radiology Report was scanned into [employer] and attached to record. gb Administered Medications: 08/31 19:04 Drug: Acetaminophen 975 mg [acetaminophen 325 mg tablet (3 tabs)] Route: PO; ja5 19:05 Drug: NS 0.9% 1000 ml [sodium chloride 0.9 % intravenous solution] Route: IV; Rate: ja5 bolus; Site: left antecubital; Signatures: Dispatcher MedHost EDMS Ioana Ortega, Ovidio Reg gb Audrey Reyes, KEN RN hs1 Orestes Dc PA PA mo1 Hasmukh Garza RN RN jmb Belles, Michael, RN RN [id number] Dalia Hernandez Jessica RN ja5 The chart was reviewed and I authenticate all verbal orders and agree with the evaluation and treatment provided.Corrections: (The following items were deleted from the chart) 21: 18:57 Chlamydia & GC Amplification+LAB ordered. EDMS EDMS 21: 18:57 WET PREP+BREEZY ordered. EDMS EDMS Attachments: 20:13 [facility] Payment Agreement gjb 09/01 09:17 T-Sheet-- Draft Copy gb Chart Complete MTDD
--- NOTE | 2016-09-02 22:35 | EDDOCDS ---
Nurse's Notes [facility] Name: Phyllis Kim Age: 30 yrs Sex: Female : 1985 Arrival Date: 08/31/2016 Time: 18:06 Bed I3 / M3 Private MD: Calixto Felicia Diagnosis: Threatened Presentation: 08/31 18:14 Presenting complaint: Patient states: IM 6.5 weeks and started bleeding hs1 yesterday. Patient reports bleeding increasing and cramping all day. Patient was told by OB to go to [place] and have levels checked, because patient is on blood thinners. Patient reports count was 4000. Patient is supposed to have levels checked again tomorrow, however comes here due to intense pain. Risk factors: The patient reports no loss of conciousness prior to arrival. This patient has not had a hysterectomy. This patient has not begun menopause. Adult Sepsis Screening: The patient does not have new or worsening altered mentation. Patient's respiratory rate is less than 22. Systolic blood pressure is greater than 100. Patient has a qSOFA score of 0- Negative Sepsis Screen. Suicide/Homicide risk assessment- the patient denies having any suicidal and/or homicidal ideations and does not present with any other emotional, behavioral or mental health complaints. Status: The patient is a dependent. Transition of care: patient was not received from another setting of care. 18:14 Acuity: STEPHIE Level 3 hs1 18:14 Method Of Arrival: Walkin/Carried/Asstd hs1 Triage Assessment: 18:17 General: Appears uncomfortable, Behavior is crying. Pain: Location: pelvis Pain hs1 currently is 10 out of 10 on a pain scale. HIV screening NA for this visit Offered previously. : Reports vaginal bleeding that is moderate flow wearing a pad. Patient states having to change pad 3 hours. 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 Advair Diskus Inhl 2 puff 2 times per day 2. albuterol sulfate 90 mcg/actuation Inhl HFAA 2 puffs every 4-6 hours 3. Lovenox 40 mg/0.4 mL subcutaneous syrg 0.4 mL once daily - PMHx: Asthma; Concussion; Migraine Headaches; PE (March 21, 2016); - PSHx: none; - Social history: Smoking status: Patient states was never smoker of tobacco. No barriers to communication noted, The patient speaks fluent Fijian, Speaks appropriately for age. - Family history: Not pertinent. - : The pt / caregiver states he / she is not on anticoagulants. Home medication list is obtained from the patient. - Exposure Risk Screening:: None identified. Screenin:04 Screening information is obtained from the patient. Fall risk: No risks identified. jmb Assistance ADL's: requires no assistance with activities of daily living. Abuse/DV Screen: The patient / caregiver reports he/she is: not in a situation that causes fear, pain or injury. Nutritional screening: No deficits noted. home support is adequate. 21:32 Advance Directives: There is no active DNR order. mb9 Assessment: 18:27 General: Appears distressed, uncomfortable, Behavior is crying. Pain: Location: dsf suprapubic area, right lower quadrant and left lower quadrant Pain currently is 10 out of 10 on a pain scale. Quality of pain is described as crampy. Neurological: Level of Consciousness is awake, alert. Cardiovascular: Capillary refill < 3 seconds. Respiratory: Airway is patent Respiratory effort is even, unlabored, Respiratory pattern is regular, symmetrical, Breath sounds are clear bilaterally. GI: Abdomen is non- distended Bowel sounds present X 4 quads. Abd is soft and non tender X 4 quads. : Reports vaginal bleeding that is bright red moderate flow since 2 days ago. Derm: Skin is pink, warm & dry. 19:04 General: Appears uncomfortable, Behavior is crying. Pain: Location: abdomen and left jmb lower quadrant and right lower quadrant and suprapubic area and pelvis Pain currently is 9 out of 10 on a pain scale. Neurological: Level of Consciousness is awake, alert, obeys commands, Oriented to person, place, time, Credit Review Manager are equal bilaterally Speech is normal, Facial symmetry appears normal, Facial symmetry: tongue is midline. Cardiovascular: Capillary refill < 3 seconds Heart tones S1 S2 present Pulses are all present. Respiratory: Airway is patent Respiratory effort is even, unlabored, Respiratory pattern is regular, symmetrical, Breath sounds are clear bilaterally. GI: Abdomen is non- distended Bowel sounds present X 4 quads. Abd is soft X 4 quads. Derm: Skin is pink, warm & dry. Musculoskeletal: Range of motion intact in all extremities. 20:17 General: Appears in no apparent distress, Behavior is appropriate for age, cooperative. jmb General: Patient laying on stretcher with friend at bedside. NO voiced complaints at this time. . Pain: Location: abdomen and left lower quadrant and right lower quadrant and suprapubic area and pelvis Pain currently is 4 out of 10 on a pain scale. Neurological: Level of Consciousness is awake, alert, obeys commands, Oriented to person, place, time. Respiratory: Airway is patent Respiratory effort is even, unlabored, Respiratory pattern is regular, symmetrical. 21:04 General: Appears in no apparent distress, Behavior is appropriate for age, cooperative. jmb Neurological: Level of Consciousness is awake, alert, obeys commands, Oriented to person, place, time. Respiratory: Airway is patent Respiratory effort is even, unlabored, Respiratory pattern is regular, symmetrical. Vital Signs: 18:09 BP 116 / 73; Pulse 86; Resp 18; Temp 97.8(O); Pulse Ox 100% on R/A; Weight 74.84 kg ct3 (R); Height 5 ft. 4 in. (162.56 cm) (R); Pain 10/10; 21:32 BP 104 / 76; Pulse 75; Resp 18; Temp 96.8; Pulse Ox 100% on R/A; mb9 18:09 Body Mass Index 28.32 (74.84 kg, 162.56 cm) ct3 Vitals: 18:09 Log In Time: August 31, 2016 at 18:07. RN notified that patient meets Red Flag ct3 criteria. ED Course: 18:08 Patient visited by Marga Llanes PCA. ct3 18:08 Patient moved to Waiting ct3 18:09 Calixto [facility] is Private Physician. ct3 18:10 Patient visited by Marga Llanes PCA. ct3 18:16 Triage Initiated hs1 18:18 Cate Brewer, KEN is Primary Nurse. hs1 18:18 Nataliia Lopez,KEN is Primary Nurse. hs1 18:18 Patient moved to I3 / M3 hs1 18:28 Patient visited by Flavia Muir RN. dsf 18:33 Orestes Dc PA is PHCP. mo1 18:33 Kevin Ayala MD is Attending Physician. mo1 18:55 Patient visited by Orestes Dc PA. mo1 19:04 The patient / caregiver is instructed regarding the plan of care and ED course. jmb 19:04 Pt & Aptt Sent. jmb 19:04 BMP Sent. jmb 19:04 Complete Blood Count Sent. jmb 19:04 Hcg, Serum Quantitative Sent. jmb 19:04 Type & Screen Sent. jmb 19:04 Inserted saline lock: 20 gauge in left antecubital area and blood collected. The b patient tolerated the procedure well. Labs drawn. (by ED staff). Sent per order to lab. 19:06 Patient visited by Hasmukh Garza RN. jmb 19:31 Verbal reassurance given. Warm blanket given. Assisted to bedside commode. Linen ajs changed. PT GIVEN CLEAN [employer] [place] AND UNDERWEAR. 19:31 Urine Culture Sent. ajs 19:31 Urinalysis Sent. ajs 19:32 Patient visited by Leslie Chakraborty. ajs 19:43 Patient moved to Ultrasound br3 20:13 [facility] [place] [facility] Payment Agreement was scanned into [employer] and attached to record. gjb 20:15 Patient moved to I3 / M3 br3 20:19 Patient visited by Hasmukh Garza RN. jmb 21:04 Patient visited by Hasmukh Garza RN. jmb 21:15 US 1st trimester Returned. EDMS 21:23 Ortega Hennessy MD is Referral Physician. mo1 21:29 Primary Nurse role handed off by Cate Brewer RN pc 21:32 Discontinued IV lock intact, bleeding controlled, pressure dressing applied, No mb9 redness/swelling at site. No procedures done that require assistance. 09/01 09:17 T-Sheet-- Draft Copy was scanned into [employer] and attached to record. gb 09:18 Radiology Report was scanned into [employer] and attached to record. gb Administered Medications: 08/31 19:04 Drug: Acetaminophen 975 mg [acetaminophen 325 mg tablet (3 tabs)] Route: PO; ja5 19:05 Drug: NS 0.9% 1000 ml [sodium chloride 0.9 % intravenous solution] Route: IV; Rate: ja5 bolus; Site: left antecubital; Order Results: Lab Order: Complete Blood Count; [facility] 08/31/16 19:01 Test: WHITE BLOOD COUNT; Value: 8.7; Range: 4.0-10.0; Units: K/mm3; Status: F Test: RED BLOOD COUNT; Value: 4.28; Range: 4.00-5.40; Units: M/mm3; Status: F Test: HEMOGLOBIN; Value: 11.9; Range: 12.0-16.0; Abnormal: Below low normal; Units: g/dl; Status: F Test: HEMATOCRIT; Value: 35.4; Range: 36.0-47.0; Abnormal: Below low normal; Units: %; Status: F Test: MEAN CORPUSCULAR VOLUME; Value: 82.7; Range: 80.0-96.0; Units: fl; Status: F Test: MEAN CORPUSCULAR HEMOGLOBIN; Value: 27.8; Range: 27.0-33.0; Units: pg; Status: F Test: MEAN CORPUSCULAR HGB CONC; Value: 33.6; Range: 32.0-36.5; Units: g/dl; Status: F Test: RED CELL DISTRIBUTION WIDTH; Value: 13.6; Range: 11.5-14.5; Units: %; Status: F Test: PLATELET COUNT, AUTOMATED; Value: 328; Range: 150-450; Units: k/mm3; Status: F Lab Order: Hcg, Serum Quantitative; [facility] 08/31/16 19:01 Test: HCG, SERUM QUANTITATIVE; Value: 2197; Units: MIU/ML; Status: F Test Note: ; GESTATIONAL AGE APPROXIMATE HCG RANGE (MIU/ML) 0.2-1 WEEK 5-50 1-2 WEEKS 50-500 2-3 WEEKS 100-5,000 3-4 WEEKS 500-10,000 4-5 WEEKS 1,000-50,000 5-6 WEEKS 10,000-100,000 6-8 WEEKS 15,000-200,000 2-3 MONTHS 10,000-100,000 NON FEMALES LESS THAN 3.0 Patient samples may contain human heterophilic antibodies that could react with immunoassays to give falsely elevated or depressed results. This assay has been designed to minimize interference from heterophilic antibodies. Elevated hCG levels have also been associated with trophoblastic disease and nontrophoblastic neoplasms. The possibility of having these diseases should be considered before a diagnosis of is made. This test is not intended for use as a surrogate marker for aiding in the diagnosis or monitoring the treatment of cancer patients. Siemens [place] methodology. Lab Order: Type & Screen; SPEC'M 08/31/16 19:01 Test: BLOOD TYPE; Value: A POS; Status: F Test: AB SCREEN (INDIRECT CHASTITY)VIS; Value: NEGATIVE; Status: F Lab Order: Urinalysis; SPEC'M 08/31/16 19:01 Test: APPEARANCE, URINE; Value: CLEAR; Range: CLEAR; Status: F Test: COLOR, URINE; Value: STRAW; Range: YELLOW; Status: F Test: PH,URINE; Value: 8.0; Range: 5.0-9.0; Units: UNITS; Status: F Test: SPECIFIC GRAVITY URINE AUTO; Value: 1.002; Range: 1.002-1.035; Status: F Test: PROTEIN, URINE AUTO; Value: NEGATIVE; Range: NEGATIVE; Units: mg/dL; Status: F Test: GLUCOSE, URINE (UA) AUTO; Value: NEGATIVE; Range: NEGATIVE; Units: mg/dL; Status: F Test: KETONE, URINE AUTO; Value: NEGATIVE; Range: NEGATIVE; Units: mg/dL; Status: F Test: UROBILINOGEN, URINE AUTO; Value: 0.2; Range: 0.0-2.0; Units: mg/dL; Status: F Test: BILIRUBIN, URINE AUTO; Value: NEGATIVE; Range: NEGATIVE; Status: F Test: NITRITE, URINE AUTO; Value: NEGATIVE; Range: NEGATIVE; Status: F Test: LEUKOCYTE ESTERASE, URINE AUTO; Value: TRACE; Range: NEGATIVE; Abnormal: Above high normal; Status: F Test: BLOOD, URINE BLOOD; Value: 3+; Range: NEGATIVE; Abnormal: Above high normal; Status: F Test: WBC, URINE AUTO; Value: 4; Range: 0-3; Abnormal: Above high normal; Units: /HPF; Status: F Test: RBC, URINE AUTO; Value: 32; Range: 0-3; Abnormal: Above high normal; Units: /HPF; Status: F Test: BACTERIA, URINE AUTO; Value: NEGATIVE; Range: NEGATIVE; Status: F Test: SQUAMOUS EPITHELIAL CELL UR AU; Value: 0; Range: 0-6; Units: /HPF; Status: F Test: MUCUS, URINE; Value: SMALL; Range: NEGATIVE; Status: F Test: HYALINE CAST, URINE AUTO; Value: 0; Range: 0-1; Units: /LPF; Status: F Test: AMORPHOUS SEDIMENT; Value: SMALL; Range: NEGATIVE; Abnormal: Above high normal; Status: F Lab Order: Urine Culture; SPEC'M 08/31/16 19:01 Test: URINE CULTURE; Value: <EXTERNAL COMMENT eCWMed> FULL REPORT IN LAB NOTES (eCW and Medent).; Status: F Test: URINE CULTURE; Value: URINE CULTURE RESULT NO GROWTH; Status: F Lab Order: BMP; SPEC'M 08/31/16 19:01 Test: GLUCOSE, FASTING; Value: 93; Range: 70-105; Units: MG/DL; Status: F Test: BLOOD UREA NITROGEN; Value: 6; Range: 7-18; Abnormal: Below low normal; Units: MG/DL; Status: F Test: CREATININE FOR GFR; Value: 0.72; Range: 0.55-1.02; Units: MG/DL; Status: F Test: GLOMERULAR FILTRATION RATE; Value: > 60.0; Range: >60; Status: F Test: SODIUM LEVEL; Value: 144; Range: 136-145; Units: MEQ/L; Status: F Test: POTASSIUM SERUM; Value: 3.6; Range: 3.5-5.1; Units: MEQ/L; Status: F Test: CHLORIDE LEVEL; Value: 109; Range: 98-107; Abnormal: Above high normal; Units: MEQ/L; Status: F Test: CARBON DIOXIDE LEVEL; Value: 24; Range: 21-32; Units: MEQ/L; Status: F Test: ANION GAP; Value: 11; Range: 8-16; Units: MEQ/L; Status: F Test: CALCIUM LEVEL; Value: 8.6; Range: 8.5-10.1; Units: MG/DL; Status: F Test Note: ; Units are mL/min/1.73 m2 Chronic Kidney Disease Staging per NKF: Stage I & II GFR >=60 Normal to Mildly Decreased Stage III GFR 30-59 Moderately Decreased Stage IV GFR 15-29 Severely Decreased Stage V GFR <15 Very Little GFR Left ESRD GFR <15 on [employer] Lab Order: Pt & Aptt; PRIYANK'M 08/31/16 19:01 Test: PROTHROMBIN TIME; Value: 13.9; Range: 12.3-14.5; Units: SECONDS; Status: F Test: INR; Value: 1.06; Status: F Test: PARTIAL THROMBOPLASTIN TIME; Value: 32.7; Range: 26.6-37.1; Units: SECONDS; Status: F Test Note: ; THERAPUTIC HUMAN INR VALUES INDICATIONS NORMAL RANGES PROPHYLAXIS/TREATMENT OF: VENOUS THROMBOSIS 2.0-3.0 PULMONARY EMBOLISM 2.0-3.0 PREVENTION OF SYSTEMIC EMBOLISM FROM: TISSUE HEART VALVES 2.0-3.0 ACUTE MYOCARDIAL INFARCTION 2.0-3.0 VALVULAR HEART DISEASE 2.0-3.0 ATRIAL FIBRILLATION 2.0-3.0 MECHANICAL VALVES(HIGH RISK) 2.5-3.5 RECURRENT MYOCARDIAL INFARCTION 2.5-3.5 Radiology Order: US 1st trimester Test: US 1st trimester REASON FOR EXAMINATION: pelvic pain 6.5wks preg; ; HISTORY: with pelvic pain. LMP 07/16/2016.; COMPARISON : None; FINDINGS:; Ultrasound examination of the pelvis was performed using transabdominal technique with grayscale, col; or Doppler flow and spectral waveform analysis; The anteverted uterus measured 5.2 x 5.0 x 5.8 cm without masses.; There is a gestational sac with a mean sac diameter of 7 mm correlating to 5 weeks, 3 days gestation,; although located in the lower uterine segment. No yolk sac or pole identified.; The right ovary measured 2.2 x 1.9 x 1.8 cm and the left ovary measured 2.1 x 1.6 x 1.6 cm. There is; a 1.3 x 1.1 x 0.9 cm right ovarian hemorrhagic versus complex cyst.; Trace free fluid.; IMPRESSION:; Low-lying gestational sac identified. While findings may represent an early IUP, suspicion is raised; for an impending . An ectopic while not definitively excluded, is a lesser consider; ation given presence of intrauterine gestational sac. Close clinical follow-up with serial beta hCG a; nd short interim pelvic ultrasound recommended to ensure a viable developing gestation and to exclude; .; ; Outcome: 21:23 Discharge ordered by Provider. mo1 21:32 Discharge Assessment: Patient awake, alert and oriented x 3. No cognitive and/or mb9 functional deficits noted. Patient verbalized understanding of disposition instructions. patient administered narcotics - no. The following High Risk Discharge criteria are identified: None. Discharged to home ambulatory. Condition: good Condition: stable Condition: improved. Discharge instructions given to patient, Instructed on discharge instructions, follow up and referral plans. medication usage, Demonstrated understanding of instructions, medications, Pt was receptive of discharge instructions/ teaching. No special radiology studies were completed. Property :Personal belongings accompany Pt. 21:34 Patient left the ED. mb9 Signatures: Dispatcher Med[employer] EDMS Justen Nunez MD MD pc Ioana Oretga, Reg Reg gb Leann Olvera br3 Audrey Reyes RN RN hs1 Marga Llanes, LIFE SCIENCE RESEARCH ASSISTANT LIFE SCIENCE RESEARCH ASSISTANT ct3 Flavia Muir,RN RN Leslie Cleaning Michael, PA PA mo1 Hasmukh Garza,RN Orestes Rod,RN RN mb9 Dalia Hernandez Jessica,RN RN ja5 Chart Complete MTDD
== END 2016-08-31 21:34 | disposition home or self-care (01) ==
LOC: M ED 18:06
DX: O20.0 Threatened abortion (principal); O99.511 Diseases of the respiratory system complicating pregnancy, first trimester; J45.909 Unspecified asthma, uncomplicated; O99.351 Diseases of the nervous system complicating pregnancy, first trimester; G43.909 Migraine, unspecified, not intractable, without status migrainosus; Z86.711 Personal history of pulmonary embolism; Z79.899 Other long term (current) drug therapy; Z79.51 Long term (current) use of inhaled steroids; Z91.030 Bee allergy status; Z91.041 Radiographic dye allergy status; Z88.5 Allergy status to narcotic agent; Z91.040 Latex allergy status; Z3A.01 Less than 8 weeks gestation of pregnancy

== ENCOUNTER 2016-09-04 23:16 | Emergency (ER) | payer OTHER ==
[2016-09-05 01:49] LABS: BASO % 0.5 % (0.0-1.0); EOS # 0.2 K/mm3 (0.0-0.50); EOS % 2.5 % (0.0-3.0); LARGE UNSTAINED CELL # 0.2 K/mm3 (0.0-0.4); LARGE UNSTAINED CELL % 2.8 % (0.0-4.0); LYMPH % 32.1 % (24.0-44.0); MEAN CORPUSCULAR HEMOGLOBIN 26.9 pg (27.0-33.0); MEAN CORPUSCULAR VOLUME 83.9 fl (80.0-96.0); MONO # 0.4 K/mm3 (0.0-0.8); MONO % 6.5 % (0.0-5.0); NEUTROPHILS # 3.5 K/mm3 (1.8-7.7); NEUTROPHILS % 55.6 % (36.0-66.0); PLATELET COUNT, AUTOMATED 306 k/mm3 (150-450); RED CELL DISTRIBUTION WIDTH 13.4 % (11.5-14.5); WHITE BLOOD COUNT 6.2 K/mm3 (4.0-10.0)
[2016-09-05 02:10] LABS: ANION GAP 6 MEQ/L (8-16); CALCIUM LEVEL 8.5 MG/DL (8.5-10.1); CARBON DIOXIDE LEVEL 30 MEQ/L (21-32); CHLORIDE LEVEL 108 MEQ/L (98-107); GLOMERULAR FILTRATION RATE > 60.0 (>60); GLUCOSE, FASTING 95 MG/DL (70-105); SODIUM LEVEL 144 MEQ/L (136-145)
[2016-09-05] MEDS ORDERED: methylPREDNISolone INJ 125 MG/2 ML VIAL (J2930) As Ordered ONE (02:17)
[2016-09-05] MEDS ORDERED: diphenhydrAMINE INJ 50MG/ML VIAL (J1200) As Ordered ONE (02:17)
[2016-09-05 02:23] LABS: BLOOD UREA NITROGEN 10 MG/DL (7-18); HCG, SERUM QUANTITATIVE 231 MIU/ML
--- NOTE | 2016-09-05 03:10 | REPUSA ---
CLINICAL HISTORY: Suspected retained products of conception. TECHNIQUE: Transabdominal ultrasound of the pelvis was performed. FINDINGS: Retroverted uterus measuring 8.6x4.4x6.2 cm. Normal endometrial thickness measuring 11.1 mm. No evidence of retained products of conception. Normal right ovary. Normal left ovary. IMPRESSION: Smooth endometrial lining without retained products of conception.
[2016-09-05] MEDS ORDERED: ISOVUE-370 76% 100ML VIAL (Q9967) As Ordered ONE (03:28)
--- NOTE | 2016-09-05 04:00 | REPUSA ---
CLINICAL HISTORY: Dyspnea, exclude PE. TECHNIQUE: Multiple incremental axial, coronal and oblique images are obtained from the thoracic inle t to the upper abdomen. Intravenous contrast material was administered as per pulmonary embolism prot ocol. COMMENTS: There is excellent opacification of pulmonary arterial system without evidence for pulmonary embolism . Aorta is of normal caliber without evidence for dissection or aneurysm. There is no evidence of pleural or parenchymal mass. Bilateral basilar atelectatic pulmonary changes and multifocal basilar air trapping. There are no pleural effusions. There is no evidence of hilar or mediastinal lymphadenopathy. The heart and great vessels are within normal limits. Images of the upper abdomen demonstrate no evidence of adrenal mass. The bony structures are free of lytic or blastic lesions. IMPRESSION: No evidence for pulmonary embolism. Multifocal basilar air-trapping. Thank you for your kind referral of this patient.
[2016-09-05] MEDS ORDERED: ONDANSETRON 4MG/2ML VIAL (J2405) As Ordered ONE (05:09)
[2016-09-05] MEDS ORDERED: MECLIZINE 12.5 MG TAB As Ordered ONE (05:09)
--- NOTE | 2016-09-05 07:55 | EDDOCDS ---
Nurse's Notes [facility] Name: Phyllis Kim Age: 30 yrs Sex: Female : 1985 Arrival Date: 09/04/2016 Time: 23:16 Bed 6 Private MD: Calixto [facility] Diagnosis: Dizziness and giddiness;Hypovolemia-due to vaginal bleeding Presentation: 09/04 23:24 Presenting complaint: Patient states: Patient reports being seen Monday for b miscarriage, passed. This afternoon passed more. Patient reports since then has not been feeling right. Reports feeling dizzy, chest hurts. Patient reports inability to catch breath with pain on left side of head. Presenting complaint: Patient states: Patient reports trying to take Tylenol and laying down but does not feel right. Risk factors: the patient reports moderate vaginal bleeding. Adult Sepsis Screening: The patient does not have new or worsening altered mentation. Patient's respiratory rate is less than 22. Systolic blood pressure is greater than 100. Patient has a qSOFA score of 0- Negative Sepsis Screen. Suicide/Homicide risk assessment- the patient denies having any suicidal and/or homicidal ideations and does not present with any other emotional, behavioral or mental health complaints. Status: Patient is not a hosted services analyst or dependent. Transition of care: patient was not received from another setting of care. 23:24 Acuity: STEPHIE Level 3 [facility] 23:24 Method Of Arrival: Walkin/Carried/Asstd [facility] Triage Assessment: 23:26 General: Appears in no apparent distress, Behavior is appropriate for age, cooperative. [facility] Pain: Location: abdomen Pain currently is 3 out of 10 on a pain scale. HIV screening NA for this visit Offered previously. Neurological: Level of Consciousness is awake, alert, obeys commands, Oriented to person, place, time, Speech is normal, Facial symmetry appears normal, Facial symmetry: tongue is midline. Cardiovascular:. Respiratory: Airway is patent Respiratory effort is even, unlabored, Respiratory pattern is regular, symmetrical. GI: Abdomen is non- distended. Derm: Skin is pink, warm & dry. Musculoskeletal: Range of motion intact in all extremities. RISK TECH: 23:26 LMP 07/16/2016 [facility] Historical: - Allergies: Bees; IVP dyeblurry vision, nausea and racing heart; Latex (Rash); Percocetdizzy, hot and nauseated; - Home Meds: 1. Advair Diskus Inhl 2 puff 2 times per day 2. albuterol sulfate 90 mcg/actuation Inhl HFAA 2 puffs every 4-6 hours 3. Lovenox 40 mg/0.4 mL Sub-Q syrg 0.4 mL once daily - PMHx: Asthma; Concussion; Migraine Headaches; PE (March 21, 2016); - PSHx: none; - Social history: Smoking status: Patient states was never smoker of tobacco. No barriers to communication noted, The patient speaks fluent Greek, Speaks appropriately for age. - Family history: Not pertinent. - : The pt / caregiver states he / she is on anticoagulants: Lovenox. Home medication list is obtained from the patient. - Exposure Risk Screening:: None identified. Screenin/13 02:26 Screening information is obtained from the patient. Fall risk: No risks identified. mgs Assistance ADL's: requires no assistance with activities of daily living. Abuse/DV Screen: The patient / caregiver reports he/she is: not in a situation that causes fear, pain or injury. Nutritional screening: No deficits noted. Advance Directives: Currently, there is no health care proxy. There is no active DNR order. home support is adequate. Assessment: 00:59 General: Appears uncomfortable, Behavior is cooperative. Pain: Location: pelvis, mgs abdomen, chest, head Pain currently is 3 out of 10 on a pain scale. Neurological: Level of Consciousness is awake, alert, Oriented to person, place, time. Cardiovascular: Capillary refill < 3 seconds Heart tones S1 S2 present Pulses are 2+ in right radial artery and left radial artery. Respiratory: Airway is patent Respiratory effort is even, unlabored, Respiratory pattern is regular, symmetrical. Respiratory: Airway is patent Respiratory effort is even, unlabored, Respiratory pattern is regular, symmetrical. GI: Abdomen is flat, Bowel sounds present X 4 quads. Abd is tender to palpation in right lower quadrant and left lower quadrant. Derm: Skin is pink, warm & dry. 02:10 General: Appears in no apparent distress, Behavior is cooperative. Neurological: Level mgs of Consciousness is awake, alert, Oriented to person, place, time. Cardiovascular: Capillary refill < 3 seconds. Respiratory: Airway is patent Respiratory effort is even, unlabored, Respiratory pattern is regular, symmetrical. Derm: Skin is pink, warm & dry. 03:07 General: Appears in no apparent distress, Behavior is cooperative. Neurological: Level mgs of Consciousness is awake, alert, Oriented to person, place, time. Cardiovascular: Capillary refill < 3 seconds. Respiratory: Airway is patent Respiratory effort is even, unlabored, Respiratory pattern is regular, symmetrical. Derm: Skin is pink, warm & dry. 04:02 General: Appears in no apparent distress, to be sleeping. Respiratory: Airway is patent mgs Respiratory effort is even, unlabored, Respiratory pattern is regular, symmetrical. Derm: Skin is pink, warm & dry. 04:57 General: Appears in no apparent distress, to be sleeping. Respiratory: Airway is patent mgs Respiratory effort is even, unlabored, Respiratory pattern is regular, symmetrical. Derm: Skin is pink, warm & dry. 05:27 General: Appears in no apparent distress. Neurological: Level of Consciousness is mgs awake, alert, Oriented to person, place, time. Cardiovascular: Capillary refill < 3 seconds. Respiratory: Airway is patent Respiratory effort is even, unlabored, Respiratory pattern is regular, symmetrical. Derm: Skin is pink, warm & dry. 06:18 General: Appears in no apparent distress, to be sleeping. Respiratory: Airway is patent mgs Respiratory effort is even, unlabored, Respiratory pattern is regular, symmetrical. Derm: Skin is pink, warm & dry. 06:25 General: Patient ambulated to assess for safety, patient was able to ambulate without mgs incident. Patient reported being tired and sore. Vital Signs: 09/04 23:18 BP 111 / 68; Pulse 93; Resp 18; Temp 97.8(O); Pulse Ox 98% ; Weight 74.84 kg (R); ct3 Height 5 ft. 4 in. (162.56 cm) (R); Pain 10; 09/05 01:01 BP 106 / 67 (auto/); mgs 01:01 Pulse 58 MON; Pulse Ox 100% ; mgs 01:21 BP 103 / 64 (auto/); mgs 01:21 Pulse 60 MON; Pulse Ox 99% ; mgs 01:41 BP 127 / 64 (auto/); mgs 01:41 Pulse 68 MON; Pulse Ox 99% ; mgs 02:01 BP 122 / 71 (auto/); mgs 02:01 Pulse 72 MON; Pulse Ox 99% ; mgs 02:21 BP 128 / 81 (auto/); mgs 02:21 Pulse 66 MON; Pulse Ox 100% ; mgs 02:41 BP 123 / 82 (auto/); mgs 02:41 Pulse 64 MON; Pulse Ox 100% ; mgs 03:01 BP 109 / 66 (auto/); mgs 03:01 Pulse 64 MON; Pulse Ox 100% ; mgs 03:42 BP 119 / 69 (auto/); mgs 03:42 Pulse 66 MON; Pulse Ox 96% ; mgs 04:02 BP 118 / 69 (auto/); mgs 04:02 Pulse 60 MON; Pulse Ox 95% ; mgs 04:22 BP 108 / 66 (auto/); mgs 04:22 Pulse 64 MON; Pulse Ox 95% ; mgs 04:42 BP 107 / 69 (auto/); mgs 04:42 Pulse 68 MON; Pulse Ox 95% ; mgs 05:02 BP 113 / 72 (auto/); mgs 05:02 Pulse 68 MON; Pulse Ox 96% ; mgs 05:22 BP 110 / 68 (auto/); mgs 05:22 Pulse 62 MON; Pulse Ox 98% ; mgs 05:42 BP 109 / 69 (auto/); mgs 05:42 Pulse 62 MON; Pulse Ox 96% ; mgs 06:02 BP 106 / 69 (auto/); mgs 06:02 Pulse 62 MON; Pulse Ox 95% ; mgs 07:52 BP 105 / 67; Pulse 62; Resp 18; Temp 98.0(O); Pulse Ox 100% on R/A; Pain 2/10; dls 09/04 23:18 Body Mass Index 28.32 (74.84 kg, 162.56 cm) ct3 Vitals: 09/04 23:18 Log In Time: September 04, 2016 at 23:15. ct3 ED Course: 23:17 Patient visited by Marga Llanes PCA. ct3 23:17 Patient moved to Waiting ct3 23:18 [facility] is Private Physician. ct3 23:19 Patient moved to Pre RCE ct3 23:26 Triage Initiated jmb 23:27 Patient moved to Waiting b 09/05 00:47 Patient moved to 6 b 00:56 Rojas Lazcano RN is Primary Nurse. mgs 01:01 Patient visited by Rojas Lazcano RN. mgs 01:04 Carlos Jarvis RPA-C is PHCP. ck7 01:04 Rojas Bansal DO is Attending Physician. ck7 01:09 Patient visited by Carlos Jarvis RPA-C. ck7 01:43 Patient visited by Carlos Jarvis RPA-C. ck7 01:43 Cardiac Marker Panel Sent. mgs 01:43 Hcg, Serum Quantitative Sent. mgs 01:43 MED Profile Sent. mgs 01:43 CBC with Diff Sent. mgs 01:44 Patient visited by Rojas Lazcano RN. mgs 01:44 Inserted saline lock: 20 gauge in right antecubital area and blood collected. The mgs patient tolerated the procedure well. 01:56 Patient moved to Ultrasound dmg 01:57 Assist provider with pelvic exam: Set up pelvic tray. nb2 02:00 Patient visited by Teri Carrera. nb2 02:15 Patient moved to 6 dmg 02:26 Patient visited by Rojas Lazcano RN. mgs 03:07 Patient visited by Rojas Lazcano RN. mgs 03:10 [facility] Payment Agreement was scanned into [employer] and attached to record. slh 03:11 US 1st trimester Returned. EDMS 04:02 Patient visited by Rojas Lazcano RN. mgs 04:18 CT Chest Angio R/O PE Returned. EDMS 04:58 Patient visited by Rojas Lazcano RN. mgs 05:30 Patient visited by Rojas Lazcano RN. mgs 06:19 Patient visited by Rojas Lazcano RN. mgs 06:52 [facility] is Referral Physician. mm11 07:03 Report received from Manjeet ROGERS. dls 07:52 Discontinued IV lock intact, bleeding controlled, pressure dressing applied, No dls redness/swelling at site. 07:54 The patient / caregiver is instructed regarding the plan of care and ED course. dls Administered Medications: 01:50 Drug: NS 0.9% 1000 ml [sodium chloride 0.9 % intravenous solution] Route: IV; Rate: mgs bolus; Site: right antecubital; 02:25 Drug: diphenhydrAMINE 50 mg [diphenhydramine 50 mg/mL injection solution (1 mL)] Route: mv5 IVP; Site: right antecubital; 02:26 Drug: Solu-MEDROL 125 mg [Solu-Medrol 500 mg intravenous solution (125 mg)] Route: IVP; mv5 Site: right antecubital; 05:05 CANCELLED (Other Intervention Used): Meclizine 50 mg PO once mm11 05:21 Drug: LR 1000 ml [lactated ringers intravenous solution] Route: IV; Rate: bolus; Site: mgs right antecubital; 05:21 Drug: Meclizine 25 mg [meclizine 12.5 mg tablet (2 tabs)] Route: PO; mgs 05:21 Drug: Ondansetron 4 mg [ondansetron HCl 2 mg/mL intravenous solution (2 mL)] Route: mgs IVP; Site: right antecubital; Order Results: Lab Order: CBC with Diff; SPEC'M 09/05/16 01:41 Test: WHITE BLOOD COUNT; Value: 6.2; Range: 4.0-10.0; Units: K/mm3; Status: F Test: RED BLOOD COUNT; Value: 4.14; Range: 4.00-5.40; Units: M/mm3; Status: F Test: HEMOGLOBIN; Value: 11.1; Range: 12.0-16.0; Abnormal: Below low normal; Units: g/dl; Status: F Test: HEMATOCRIT; Value: 34.7; Range: 36.0-47.0; Abnormal: Below low normal; Units: %; Status: F Test: MEAN CORPUSCULAR VOLUME; Value: 83.9; Range: 80.0-96.0; Units: fl; Status: F Test: MEAN CORPUSCULAR HEMOGLOBIN; Value: 26.9; Range: 27.0-33.0; Abnormal: Below low normal; Units: pg; Status: F Test: MEAN CORPUSCULAR HGB CONC; Value: 32.0; Range: 32.0-36.5; Units: g/dl; Status: F Test: RED CELL DISTRIBUTION WIDTH; Value: 13.4; Range: 11.5-14.5; Units: %; Status: F Test: PLATELET COUNT, AUTOMATED; Value: 306; Range: 150-450; Units: k/mm3; Status: F Test: NEUTROPHILS %; Value: 55.6; Range: 36.0-66.0; Units: %; Status: F Test: LYMPH %; Value: 32.1; Range: 24.0-44.0; Units: %; Status: F Test: MONO %; Value: 6.5; Range: 0.0-5.0; Abnormal: Above high normal; Units: %; Status: F Test: EOS %; Value: 2.5; Range: 0.0-3.0; Units: %; Status: F Test: BASO %; Value: 0.5; Range: 0.0-1.0; Units: %; Status: F Test: LARGE UNSTAINED CELL %; Value: 2.8; Range: 0.0-4.0; Units: %; Status: F Test: NEUTROPHILS #; Value: 3.5; Range: 1.8-7.7; Units: K/mm3; Status: F Test: LYMPH #; Value: 2.0; Range: 1.5-4.5; Units: K/mm3; Status: F Test: MONO #; Value: 0.4; Range: 0.0-0.8; Units: K/mm3; Status: F Test: EOS #; Value: 0.2; Range: 0.0-0.50; Units: K/mm3; Status: F Test: BASO #; Value: 0.0; Range: 0.0-0.2; Units: K/mm3; Status: F Test: LARGE UNSTAINED CELL #; Value: 0.2; Range: 0.0-0.4; Units: K/mm3; Status: F Lab Order: MED Profile; SPEC'M 09/05/16 01:41 Test: GLUCOSE, FASTING; Value: 95; Range: 70-105; Units: MG/DL; Status: F Test: BLOOD UREA NITROGEN; Value: 10; Range: 7-18; Units: MG/DL; Status: F Test: CREATININE FOR GFR; Value: 0.70; Range: 0.55-1.02; Units: MG/DL; Status: F Test: GLOMERULAR FILTRATION RATE; Value: > 60.0; Range: >60; Status: F Test: SODIUM LEVEL; Value: 144; Range: 136-145; Units: MEQ/L; Status: F Test: POTASSIUM SERUM; Value: 4.0; Range: 3.5-5.1; Units: MEQ/L; Status: F Test: CHLORIDE LEVEL; Value: 108; Range: 98-107; Abnormal: Above high normal; Units: MEQ/L; Status: F Test: CARBON DIOXIDE LEVEL; Value: 30; Range: 21-32; Units: MEQ/L; Status: F Test: ANION GAP; Value: 6; Range: 8-16; Abnormal: Below low normal; Units: MEQ/L; Status: F Test: CALCIUM LEVEL; Value: 8.5; Range: 8.5-10.1; Units: MG/DL; Status: F Test Note: ; Units are mL/min/1.73 m2 Chronic Kidney Disease Staging per NKF: Stage I & II GFR >=60 Normal to Mildly Decreased Stage III GFR 30-59 Moderately Decreased Stage IV GFR 15-29 Severely Decreased Stage V GFR <15 Very Little GFR Left ESRD GFR <15 on MOLDING FITTER Lab Order: Type & Screen; SPEC' 09/05/16 01:41 Test: BLOOD TYPE; Value: AP; Status: F Test: AB SCREEN GEL MANUAL; Value: NEGATIVE; Status: F Lab Order: Hcg, Serum Quantitative; SPEC09/05/16 01:41 Test: HCG, SERUM QUANTITATIVE; Value: 231; Units: MIU/ML; Status: F Test Note: ; GESTATIONAL AGE APPROXIMATE HCG RANGE (MIU/ML) 0.2-1 WEEK 5-50 1-2 WEEKS 50-500 2-3 WEEKS 100-5,000 3-4 WEEKS 500-10,000 4-5 WEEKS 1,000-50,000 5-6 WEEKS 10,000-100,000 6-8 WEEKS 15,000-200,000 2-3 MONTHS 10,000-100,000 NON FEMALES LESS THAN 3.0 Patient samples may contain human heterophilic antibodies that could react with immunoassays to give falsely elevated or depressed results. This assay has been designed to minimize interference from heterophilic antibodies. Elevated hCG levels have also been associated with trophoblastic disease and nontrophoblastic neoplasms. The possibility of having these diseases should be considered before a diagnosis of is made. This test is not intended for use as a surrogate marker for aiding in the diagnosis or monitoring the treatment of cancer patients. [employer] methodology. Lab Order: Cardiac Marker Panel; SPEC'M 09/05/16 01:41 Test: CPK CREATINE PHOSPHOKINASE; Value: 49; Range: 26-192; Units: U/L; Status: F Test: CK-MB VALUE MASS; Value: 1.2; Range: 0.0-3.6; Units: NG/ML; Status: F Test: MB/CK RELATIVE INDEX; Value: 2.44; Range: < OR =4; Status: F Test: TROPONIN I; Value: < 0.02; Range: < 0.10; Units: NG/ML; Status: F Test Note: ; DIAGNOSIS CRITERIA MMB ng/ml Relative Index (RI) NON-AMI < or = 5 N/A QUACH ZONE > 5 < or = 4 AMI > 5 > 4 Radiology Order: US 1st trimester Test: US 1st trimester REASON FOR EXAMINATION: R/O RPOC; ; CLINICAL HISTORY: Suspected retained products of conception.; TECHNIQUE: Transabdominal ultrasound of the pelvis was performed.; FINDINGS:; Retroverted uterus measuring 8.6x4.4x6.2 cm.; Normal endometrial thickness measuring 11.1 mm.; No evidence of retained products of conception.; Normal right ovary.; Normal left ovary.; IMPRESSION:; Smooth endometrial lining without retained products of conception.; ; Radiology Order: CT Chest Angio R/O PE Test: CT Chest Angio R/O PE REASON FOR EXAMINATION: Shortness of Breath; ; CLINICAL HISTORY: Dyspnea, exclude PE.; TECHNIQUE: Multiple incremental axial, coronal and oblique images are obtained from the thoracic inle; t to the upper abdomen. Intravenous contrast material was administered as per pulmonary embolism prot; ocol.; COMMENTS:; There is excellent opacification of pulmonary arterial system without evidence for pulmonary embolism; . Aorta is of normal caliber without evidence for dissection or aneurysm.; There is no evidence of pleural or parenchymal mass. Bilateral basilar atelectatic pulmonary changes; and multifocal basilar air trapping. There are no pleural effusions. There is no evidence of hilar or; mediastinal lymphadenopathy. The heart and great vessels are within normal limits.; Images of the upper abdomen demonstrate no evidence of adrenal mass.; The bony structures are free of lytic or blastic lesions.; IMPRESSION:; No evidence for pulmonary embolism.; Multifocal basilar air-trapping.; Thank you for your kind referral of this patient.; ; Outcome: 06:52 Discharge ordered by Provider. mm11 07:53 Discharge Assessment: Patient awake, alert and oriented x 3. No cognitive and/or dls functional deficits noted. Patient verbalized understanding of disposition instructions. patient administered narcotics - no. The following High Risk Discharge criteria are identified: None. Discharged to home ambulatory. Condition: stable Condition: improved. Discharge instructions given to patient, Instructed on discharge instructions, follow up and referral plans. Demonstrated understanding of instructions, Pt was receptive of discharge instructions/ teaching. No special radiology studies were completed. Property sent home with patient. 07:54 Patient left the ED. dls Signatures: Dispatcher [employer] EDMS Codi Rogers, RN RN Nadine Cary Matthew, DO DO mm11 Llanes, Marga, MOLD CHIPPER MOLD CHIPPER ct3 Carlos Jarvis, RPA-C RPA-Cck7 Hasmukh Garza,RN Roselyn Christopher Matthew,RN RN s Teri Carrera2 Nora Robertson,RN RN mv5 Corrections: (The following items were deleted from the chart) 02:09 01:43 TYPE & SCREEN+BBK sent. [facility] [place] [place] EDMS MTDD
--- NOTE | 2016-09-05 07:55 | EDDOCDS ---
Physician Documentation [facility] Name: Phyllis Kim Age: 30 yrs Sex: Female : 1985 Arrival Date: 09/04/2016 Time: 23:16 Bed 6 Private MD: DAISY De Luna Disposition: 09/05/16 06:52 Discharged to Home/Self Care. Impression: Dizziness and giddiness, Hypovolemia - due to vaginal bleeding. - Condition is Stable. - Discharge Instructions: Dehydration, Adult, Dizziness, Dizziness, [id number], Miscarriage, Miscarriage, [id number]. - Medication Reconciliation, Local Pharmacy Hours form. - Follow up: DAISY De Luna; When: 2 - 3 days; Reason: Continuance of care. - Problem is an acute exacerbation. - Symptoms have improved. Historical: - Allergies: Bees; IVP dyeblurry vision, nausea and racing heart; Latex (Rash); Percocetdizzy, hot and nauseated; - Home Meds: 1. Advair Diskus Inhl 2 puff 2 times per day 2. albuterol sulfate 90 mcg/actuation Inhl HFAA 2 puffs every 4-6 hours 3. Lovenox 40 mg/0.4 mL Sub-Q syrg 0.4 mL once daily - PMHx: Asthma; Concussion; Migraine Headaches; PE (March 21, 2016); - PSHx: none; - Social history: Smoking status: Patient states was never smoker of tobacco. No barriers to communication noted, The patient speaks fluent Ukrainian, Speaks appropriately for age. - Family history: Not pertinent. - : The pt / caregiver states he / she is on anticoagulants: Lovenox. Home medication list is obtained from the patient. - Exposure Risk Screening:: None identified. RADIOLOGY TRANSPORTER: 09/04 23:26 LMP 07/16/2016 b Vital Signs: 23:18 BP 111 / 68; Pulse 93; Resp 18; Temp 97.8(O); Pulse Ox 98% ; Weight 74.84 kg / 164.99 ct3 lbs (R); Height 5 ft. 4 in. (162.56 cm) (R); Pain 3/10; 09/05 01:01 BP 106 / 67 (auto/); mgs 01:01 Pulse 58 MON; Pulse Ox 100% ; mgs 01:21 BP 103 / 64 (auto/); mgs 01:21 Pulse 60 MON; Pulse Ox 99% ; mgs 01:41 BP 127 / 64 (auto/); mgs 01:41 Pulse 68 MON; Pulse Ox 99% ; mgs 02:01 BP 122 / 71 (auto/); mgs 02:01 Pulse 72 MON; Pulse Ox 99% ; mgs 02:21 BP 128 / 81 (auto/); mgs 02:21 Pulse 66 MON; Pulse Ox 100% ; mgs 02:41 BP 123 / 82 (auto/); mgs 02:41 Pulse 64 MON; Pulse Ox 100% ; mgs 03:01 BP 109 / 66 (auto/); mgs 03:01 Pulse 64 MON; Pulse Ox 100% ; mgs 03:42 BP 119 / 69 (auto/); mgs 03:42 Pulse 66 MON; Pulse Ox 96% ; mgs 04:02 BP 118 / 69 (auto/); mgs 04:02 Pulse 60 MON; Pulse Ox 95% ; mgs 04:22 BP 108 / 66 (auto/); mgs 04:22 Pulse 64 MON; Pulse Ox 95% ; mgs 04:42 BP 107 / 69 (auto/); mgs 04:42 Pulse 68 MON; Pulse Ox 95% ; mgs 05:02 BP 113 / 72 (auto/); mgs 05:02 Pulse 68 MON; Pulse Ox 96% ; mgs 05:22 BP 110 / 68 (auto/); mgs 05:22 Pulse 62 MON; Pulse Ox 98% ; mgs 05:42 BP 109 / 69 (auto/); mgs 05:42 Pulse 62 MON; Pulse Ox 96% ; mgs 06:02 BP 106 / 69 (auto/); mgs 06:02 Pulse 62 MON; Pulse Ox 95% ; mgs 07:52 BP 105 / 67; Pulse 62; Resp 18; Temp 98.0(O); Pulse Ox 100% on R/A; Pain 2/10; dls 09/04 23:18 Body Mass Index 28.32 (74.84 kg, 162.56 cm) ct3 MDM: 00:59 ECG WITH READING ER PHYS+CARDIAG ordered. EDMS 01:29 IV Saline Lock ordered. ck7 01:29 NS 0.9% 1000 ml IV at bolus once ordered. ck7 01:29 Set up pelvic ordered. ck7 01:30 CBC with Diff Ordered. EDMS 01:30 MED Profile Ordered. EDMS 01:30 Hcg, Serum Quantitative Ordered. EDMS 01:30 Cardiac Marker Panel Ordered. EDMS 01:30 US 1st trimester Ordered. EDMS 01:49 Solu-MEDROL 125 mg IVP once; ADMIN JUST BEFORE CT ordered. ck7 01:49 diphenhydrAMINE 50 mg IVP once; ADMIN JUST BEFORE CT ordered. ck7 01:50 CT Chest Angio R/O PE Ordered. EDMS 02:03 CBC with Diff Reviewed. mm11 02:18 DUPLEX SCAN LIMITED (DOPPLER) Ordered. EDMS 02:47 MED Profile Reviewed. ck7 02:47 Type & Screen Reviewed. ck7 02:47 Hcg, Serum Quantitative Reviewed. ck7 02:47 Cardiac Marker Panel Reviewed. ck7 03:10 [facility] Payment Agreement was scanned into [employer] and attached to record. [facility] 03:10 Financial registration complete. [facility] 04:59 US 1st trimester Reviewed. mm11 04:59 CT Chest Angio R/O PE Reviewed. mm11 05:04 LR Solution 1000 ml IV at bolus once ordered. mm11 05:05 Meclizine 25 mg PO once ordered. mm11 05:08 Ondansetron 4 mg IVP once ordered. mm11 06:21 Ambulate Patient to Assess Patient Safety ordered. mm11 Administered Medications: 01:50 Drug: NS 0.9% 1000 ml [sodium chloride 0.9 % intravenous solution] Route: IV; Rate: mgs bolus; Site: right antecubital; 02:25 Drug: diphenhydrAMINE 50 mg [diphenhydramine 50 mg/mL injection solution (1 mL)] Route: mv5 IVP; Site: right antecubital; 02:26 Drug: Solu-MEDROL 125 mg [Solu-Medrol 500 mg intravenous solution (125 mg)] Route: IVP; mv5 Site: right antecubital; 05:05 CANCELLED (Other Intervention Used): Meclizine 50 mg PO once mm11 05:21 Drug: LR 1000 ml [lactated ringers intravenous solution] Route: IV; Rate: bolus; Site: mgs right antecubital; 05:21 Drug: Meclizine 25 mg [meclizine 12.5 mg tablet (2 tabs)] Route: PO; mgs 05:21 Drug: Ondansetron 4 mg [ondansetron HCl 2 mg/mL intravenous solution (2 mL)] Route: mgs IVP; Site: right antecubital; Signatures: Dispatcher [employer] EDMS Codi Rogers, Rojas Schneider RN, DO mm11 Carlos Jarvis, MOUNA-C RPA-Cck7 Hasmukh Garza RN RN jmb Hook, Sandra slh Sheldon, Matthew RN mgs Vannedery, Megan RN mv5 The chart was reviewed and I authenticate all verbal orders and agree with the evaluation and treatment provided.Corrections: (The following items were deleted from the chart) 01:51 01:30 Chest, 2 view (PA\E\Lat)+XR ordered. EDMS EDMS 02:09 01:30 TYPE & SCREEN+BBK ordered. EDMS EDMS 05:05 05:05 Meclizine 50 mg PO once ordered. mm11 mm11 Attachments: 03:10 [facility] Payment Agreement [facility] MTDD
--- NOTE | 2016-09-05 08:32 | ECGEPIP ---
Stationary ECG Study [facility] - ED Test Date: 2016-09-05 Pat Name: MATT MACHUCA Department: Room: - Gender: F Management Coordinator: mr : 1985 Requested By: CASE Keene Order Number: [id number] Reading MD: Nirmala Diaz Measurements Intervals [place] Rate: 58 P: 33 AR: 137 QRS: 0 QRSD: 76 T: -5 QT: 375 QTc: 369 Interpretive Statements SINUS BRADYCARDIA DECREASED RATE 08/09/16 Electronically Signed On 09-05-2016 8:32:34 EST by Nirmala Diaz
--- NOTE | 2016-09-07 08:56 | EDDOCDS ---
Physician Documentation [facility] Name: Phyllis Kim Age: 30 yrs Sex: Female : 1985 Arrival Date: 09/04/2016 Time: 23:16 Bed 6 Private MD: DAISY De Luna Disposition: 09/05/16 06:52 Discharged to Home/Self Care. Impression: Dizziness and giddiness, Hypovolemia - due to vaginal bleeding. - Condition is Stable. - Discharge Instructions: Dehydration, Adult, Dizziness, Dizziness, [id number], Miscarriage, Miscarriage, [id number]. - Medication Reconciliation, Local Pharmacy Hours form. - Follow up: DAISY De Luna; When: 2 - 3 days; Reason: Continuance of care. - Problem is an acute exacerbation. - Symptoms have improved. Historical: - Allergies: Bees; IVP dyeblurry vision, nausea and racing heart; Latex (Rash); Percocetdizzy, hot and nauseated; - Home Meds: 1. Advair Diskus Inhl 2 puff 2 times per day 2. albuterol sulfate 90 mcg/actuation Inhl HFAA 2 puffs every 4-6 hours 3. Lovenox 40 mg/0.4 mL Sub-Q syrg 0.4 mL once daily - PMHx: Asthma; Concussion; Migraine Headaches; PE (March 21, 2016); - PSHx: none; - Social history: Smoking status: Patient states was never smoker of tobacco. No barriers to communication noted, The patient speaks fluent Malaysian, Speaks appropriately for age. - Family history: Not pertinent. - : The pt / caregiver states he / she is on anticoagulants: Lovenox. Home medication list is obtained from the patient. - Exposure Risk Screening:: None identified. 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 4 in. (162.56 cm) (R); Pain 3/10; 09/05 01:01 BP 106 / 67 (auto/); mgs 01:01 Pulse 58 MON; Pulse Ox 100% ; mgs 01:21 BP 103 / 64 (auto/); mgs 01:21 Pulse 60 MON; Pulse Ox 99% ; mgs 01:41 BP 127 / 64 (auto/); mgs 01:41 Pulse 68 MON; Pulse Ox 99% ; mgs 02:01 BP 122 / 71 (auto/); mgs 02:01 Pulse 72 MON; Pulse Ox 99% ; mgs 02:21 BP 128 / 81 (auto/); mgs 02:21 Pulse 66 MON; Pulse Ox 100% ; mgs 02:41 BP 123 / 82 (auto/); mgs 02:41 Pulse 64 MON; Pulse Ox 100% ; mgs 03:01 BP 109 / 66 (auto/); mgs 03:01 Pulse 64 MON; Pulse Ox 100% ; mgs 03:42 BP 119 / 69 (auto/); mgs 03:42 Pulse 66 MON; Pulse Ox 96% ; mgs 04:02 BP 118 / 69 (auto/); mgs 04:02 Pulse 60 MON; Pulse Ox 95% ; mgs 04:22 BP 108 / 66 (auto/); mgs 04:22 Pulse 64 MON; Pulse Ox 95% ; mgs 04:42 BP 107 / 69 (auto/); mgs 04:42 Pulse 68 MON; Pulse Ox 95% ; mgs 05:02 BP 113 / 72 (auto/); mgs 05:02 Pulse 68 MON; Pulse Ox 96% ; mgs 05:22 BP 110 / 68 (auto/); mgs 05:22 Pulse 62 MON; Pulse Ox 98% ; mgs 05:42 BP 109 / 69 (auto/); mgs 05:42 Pulse 62 MON; Pulse Ox 96% ; mgs 06:02 BP 106 / 69 (auto/); mgs 06:02 Pulse 62 MON; Pulse Ox 95% ; mgs 07:52 BP 105 / 67; Pulse 62; Resp 18; Temp 98.0(O); Pulse Ox 100% on R/A; Pain 2/10; dls 09/04 23:18 Body Mass Index 28.32 (74.84 kg, 162.56 cm) ct3 MDM: 00:59 ECG WITH READING ER PHYS+CARDIAG ordered. EDMS 01:29 IV Saline Lock ordered. ck7 01:29 NS 0.9% 1000 ml IV at bolus once ordered. ck7 01:29 Set up pelvic ordered. ck7 01:30 CBC with Diff Ordered. EDMS 01:30 MED Profile Ordered. EDMS 01:30 Hcg, Serum Quantitative Ordered. EDMS 01:30 Cardiac Marker Panel Ordered. EDMS 01:30 US 1st trimester Ordered. EDMS 01:49 Solu-MEDROL 125 mg IVP once; ADMIN JUST BEFORE CT ordered. ck7 01:49 diphenhydrAMINE 50 mg IVP once; ADMIN JUST BEFORE CT ordered. ck7 01:50 CT Chest Angio R/O PE Ordered. EDMS 02:03 CBC with Diff Reviewed. mm11 02:18 DUPLEX SCAN LIMITED (DOPPLER) Ordered. EDMS 02:47 MED Profile Reviewed. ck7 02:47 Type & Screen Reviewed. ck7 02:47 Hcg, Serum Quantitative Reviewed. ck7 02:47 Cardiac Marker Panel Reviewed. ck7 03:10 [facility] Payment Agreement was scanned into 115 network disks and attached to record. [facility] 03:10 Financial registration complete. [facility] 04:59 US 1st trimester Reviewed. mm11 04:59 CT Chest Angio R/O PE Reviewed. mm11 05:04 LR Solution 1000 ml IV at bolus once ordered. mm11 05:05 Meclizine 25 mg PO once ordered. mm11 05:08 Ondansetron 4 mg IVP once ordered. mm11 06:21 Ambulate Patient to Assess Patient Safety ordered. mm11 11:02 T-Sheet-- Draft Copy was scanned into 115 network disks and attached to record. 09/06 14:35 ECG/EKG was scanned into 115 network disks and attached to record. Administered Medications: 09/05 01:50 Drug: NS 0.9% 1000 ml [sodium chloride 0.9 % intravenous solution] Route: IV; Rate: mgs bolus; Site: right antecubital; 02:25 Drug: diphenhydrAMINE 50 mg [diphenhydramine 50 mg/mL injection solution (1 mL)] Route: mv5 IVP; Site: right antecubital; 02:26 Drug: Solu-MEDROL 125 mg [Solu-Medrol 500 mg intravenous solution (125 mg)] Route: IVP; mv5 Site: right antecubital; 05:05 CANCELLED (Other Intervention Used): Meclizine 50 mg PO once mm11 05:21 Drug: LR 1000 ml [lactated ringers intravenous solution] Route: IV; Rate: bolus; Site: mgs right antecubital; 05:21 Drug: Meclizine 25 mg [meclizine 12.5 mg tablet (2 tabs)] Route: PO; mgs 05:21 Drug: Ondansetron 4 mg [ondansetron HCl 2 mg/mL intravenous solution (2 mL)] Route: mgs IVP; Site: right antecubital; Signatures: Dispatcher [employer] EDMS Codi Rogers, RN RN Ioana Randall, Reg Reg gb Rojas Bansal, DO DO mm11 Carlos Jarvis, MOUNA-C [id number] Hasmukh GarzaRN Roselyn Christopher Rojas Waggoner RNs Nora Robertson RN mv5 The chart was reviewed and I authenticate all verbal orders and agree with the evaluation and treatment provided.Corrections: (The following items were deleted from the chart) 01:51 01:30 Chest, 2 view (PA\E\Lat)+XR ordered. EDMS EDMS 02:09 01:30 TYPE & SCREEN+BBK ordered. EDMS EDMS 05:05 05:05 Meclizine 50 mg PO once ordered. mm11 mm11 Attachments: 03:10 [facility] Payment Agreement [facility] 11:02 T-Sheet-- Draft Copy gb 09/06 14:35 ECG/EKG gb Chart Complete [facility]
--- NOTE | 2016-09-07 08:56 | EDDOCDS ---
Physician Documentation [facility] Name: Phyllis Kim Age: 30 yrs Sex: Female : 1985 Arrival Date: 09/04/2016 Time: 23:16 Bed 6 Private MD: DAISY De Luna Disposition: 09/05/16 06:52 Discharged to Home/Self Care. Impression: Dizziness and giddiness, Hypovolemia - due to vaginal bleeding. - Condition is Stable. - Discharge Instructions: Dehydration, Adult, Dizziness, Dizziness, [id number], Miscarriage, Miscarriage, [id number]-[id number]. - Medication Reconciliation, Local Pharmacy Hours form. - Follow up: DAISY De Luna; When: 2 - 3 days; Reason: Continuance of care. - Problem is an acute exacerbation. - Symptoms have improved. Historical: - Allergies: Bees; IVP dyeblurry vision, nausea and racing heart; Latex (Rash); Percocetdizzy, hot and nauseated; - Home Meds: 1. Advair Diskus Inhl 2 puff 2 times per day 2. albuterol sulfate 90 mcg/actuation Inhl HFAA 2 puffs every 4-6 hours 3. Lovenox 40 mg/0.4 mL Sub-Q syrg 0.4 mL once daily - PMHx: Asthma; Concussion; Migraine Headaches; PE (March 21, 2016); - PSHx: none; - Social history: Smoking status: Patient states was never smoker of tobacco. No barriers to communication noted, The patient speaks fluent Congolese, Speaks appropriately for age. - Family history: Not pertinent. - : The pt / caregiver states he / she is on anticoagulants: Lovenox. Home medication list is obtained from the patient. - Exposure Risk Screening:: None identified. 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 4 in. (162.56 cm) (R); Pain 3/10; 09/05 01:01 BP 106 / 67 (auto/); mgs 01:01 Pulse 58 MON; Pulse Ox 100% ; mgs 01:21 BP 103 / 64 (auto/); mgs 01:21 Pulse 60 MON; Pulse Ox 99% ; mgs 01:41 BP 127 / 64 (auto/); mgs 01:41 Pulse 68 MON; Pulse Ox 99% ; mgs 02:01 BP 122 / 71 (auto/); mgs 02:01 Pulse 72 MON; Pulse Ox 99% ; mgs 02:21 BP 128 / 81 (auto/); mgs 02:21 Pulse 66 MON; Pulse Ox 100% ; mgs 02:41 BP 123 / 82 (auto/); mgs 02:41 Pulse 64 MON; Pulse Ox 100% ; mgs 03:01 BP 109 / 66 (auto/); mgs 03:01 Pulse 64 MON; Pulse Ox 100% ; mgs 03:42 BP 119 / 69 (auto/); mgs 03:42 Pulse 66 MON; Pulse Ox 96% ; mgs 04:02 BP 118 / 69 (auto/); mgs 04:02 Pulse 60 MON; Pulse Ox 95% ; mgs 04:22 BP 108 / 66 (auto/); mgs 04:22 Pulse 64 MON; Pulse Ox 95% ; mgs 04:42 BP 107 / 69 (auto/); mgs 04:42 Pulse 68 MON; Pulse Ox 95% ; mgs 05:02 BP 113 / 72 (auto/); mgs 05:02 Pulse 68 MON; Pulse Ox 96% ; mgs 05:22 BP 110 / 68 (auto/); mgs 05:22 Pulse 62 MON; Pulse Ox 98% ; mgs 05:42 BP 109 / 69 (auto/); mgs 05:42 Pulse 62 MON; Pulse Ox 96% ; mgs 06:02 BP 106 / 69 (auto/); mgs 06:02 Pulse 62 MON; Pulse Ox 95% ; mgs 07:52 BP 105 / 67; Pulse 62; Resp 18; Temp 98.0(O); Pulse Ox 100% on R/A; Pain 2/10; dls 09/04 23:18 Body Mass Index 28.32 (74.84 kg, 162.56 cm) ct3 MDM: 00:59 ECG WITH READING ER PHYS+CARDIAG ordered. EDMS 01:29 IV Saline Lock ordered. ck7 01:29 NS 0.9% 1000 ml IV at bolus once ordered. ck7 01:29 Set up pelvic ordered. ck7 01:30 CBC with Diff Ordered. EDMS 01:30 MED Profile Ordered. EDMS 01:30 Hcg, Serum Quantitative Ordered. EDMS 01:30 Cardiac Marker Panel Ordered. EDMS 01:30 US 1st trimester Ordered. EDMS 01:49 Solu-MEDROL 125 mg IVP once; ADMIN JUST BEFORE CT ordered. ck7 01:49 diphenhydrAMINE 50 mg IVP once; ADMIN JUST BEFORE CT ordered. ck7 01:50 CT Chest Angio R/O PE Ordered. EDMS 02:03 CBC with Diff Reviewed. mm11 02:18 DUPLEX SCAN LIMITED (DOPPLER) Ordered. EDMS 02:47 MED Profile Reviewed. ck7 02:47 Type & Screen Reviewed. ck7 02:47 Hcg, Serum Quantitative Reviewed. ck7 02:47 Cardiac Marker Panel Reviewed. ck7 03:10 [facility] Payment Agreement was scanned into PEX Card and attached to record. [facility] 03:10 Financial registration complete. [facility] 04:59 US 1st trimester Reviewed. mm11 04:59 CT Chest Angio R/O PE Reviewed. mm11 05:04 LR Solution 1000 ml IV at bolus once ordered. mm11 05:05 Meclizine 25 mg PO once ordered. mm11 05:08 Ondansetron 4 mg IVP once ordered. mm11 06:21 Ambulate Patient to Assess Patient Safety ordered. mm11 11:02 T-Sheet-- Draft Copy was scanned into PEX Card and attached to record. 09/06 14:35 ECG/EKG was scanned into PEX Card and attached to record. Administered Medications: 09/05 01:50 Drug: NS 0.9% 1000 ml [sodium chloride 0.9 % intravenous solution] Route: IV; Rate: mgs bolus; Site: right antecubital; 02:25 Drug: diphenhydrAMINE 50 mg [diphenhydramine 50 mg/mL injection solution (1 mL)] Route: mv5 IVP; Site: right antecubital; 02:26 Drug: Solu-MEDROL 125 mg [Solu-Medrol 500 mg intravenous solution (125 mg)] Route: IVP; mv5 Site: right antecubital; 05:05 CANCELLED (Other Intervention Used): Meclizine 50 mg PO once mm11 05:21 Drug: LR 1000 ml [lactated ringers intravenous solution] Route: IV; Rate: bolus; Site: mgs right antecubital; 05:21 Drug: Meclizine 25 mg [meclizine 12.5 mg tablet (2 tabs)] Route: PO; mgs 05:21 Drug: Ondansetron 4 mg [ondansetron HCl 2 mg/mL intravenous solution (2 mL)] Route: mgs IVP; Site: right antecubital; Signatures: Dispatcher [employer] EDMS Codi Rogers, RN RN Ioana Randall, Reg Reg gb Rojas Bansal, DO DO mm11 Carlos Jarvis, MOUNA-C [id number] Hasmukh GarzaRN Roselyn Christopher Rojas Waggoner RNs Nora Robertson RN mv5 The chart was reviewed and I authenticate all verbal orders and agree with the evaluation and treatment provided.Corrections: (The following items were deleted from the chart) 01:51 01:30 Chest, 2 view (PA\E\Lat)+XR ordered. EDMS EDMS 02:09 01:30 TYPE & SCREEN+BBK ordered. EDMS EDMS 05:05 05:05 Meclizine 50 mg PO once ordered. mm11 mm11 Attachments: 03:10 [facility] Payment Agreement [facility] 11:02 T-Sheet-- Draft Copy gb 09/06 14:35 ECG/EKG gb Chart [facility]
--- NOTE | 2016-09-07 08:56 | EDDOCDS ---
Nurse's Notes [facility] Name: Matt Machuca Age: 30 yrs Sex: Female : 1985 Arrival Date: 09/04/2016 Time: 23:16 Bed 6 Private MD: Cal[facility]xt[facility] Diagnosis: Dizziness and giddiness;Hypovolemia-due to vaginal bleeding Presentation: 09/04 23:24 Presenting complaint: Patient states: Patient reports being seen Monday for b miscarriage, passed. This afternoon passed more. Patient reports since then has not been feeling right. Reports feeling dizzy, chest hurts. Patient reports inability to catch breath with pain on left side of head. Presenting complaint: Patient states: Patient reports trying to take Tylenol and laying down but does not feel right. Risk factors: the patient reports moderate vaginal bleeding. Adult Sepsis Screening: The patient does not have new or worsening altered mentation. Patient's respiratory rate is less than 22. Systolic blood pressure is greater than 100. Patient has a qSOFA score of 0- Negative Sepsis Screen. Suicide/Homicide risk assessment- the patient denies having any suicidal and/or homicidal ideations and does not present with any other emotional, behavioral or mental health complaints. Status: Patient is not a director of radio services or dependent. Transition of care: patient was not received from another setting of care. 23:24 Acuity: STEPHIE Level 3 [facility] 23:24 Method Of Arrival: Walkin/Carried/Asstd [facility] Triage Assessment: 23:26 General: Appears in no apparent distress, Behavior is appropriate for age, cooperative. [facility] Pain: Location: abdomen Pain currently is 3 out of 10 on a pain scale. HIV screening NA for this visit Offered previously. Neurological: Level of Consciousness is awake, alert, obeys commands, Oriented to person, place, time, Speech is normal, Facial symmetry appears normal, Facial symmetry: tongue is midline. Cardiovascular:. Respiratory: Airway is patent Respiratory effort is even, unlabored, Respiratory pattern is regular, symmetrical. GI: Abdomen is non- distended. Derm: Skin is pink, warm & dry. Musculoskeletal: Range of motion intact in all extremities. 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 Advair Diskus Inhl 2 puff 2 times per day 2. albuterol sulfate 90 mcg/actuation Inhl HFAA 2 puffs every 4-6 hours 3. Lovenox 40 mg/0.4 mL Sub-Q syrg 0.4 mL once daily - PMHx: Asthma; Concussion; Migraine Headaches; PE (March 21, 2016); - PSHx: none; - Social history: Smoking status: Patient states was never smoker of tobacco. No barriers to communication noted, The patient speaks fluent Turkish, Speaks appropriately for age. - Family history: Not pertinent. - : The pt / caregiver states he / she is on anticoagulants: Lovenox. Home medication list is obtained from the patient. - Exposure Risk Screening:: None identified. Screenin/13 02:26 Screening information is obtained from the patient. Fall risk: No risks identified. mgs Assistance ADL's: requires no assistance with activities of daily living. Abuse/DV Screen: The patient / caregiver reports he/she is: not in a situation that causes fear, pain or injury. Nutritional screening: No deficits noted. Advance Directives: Currently, there is no health care proxy. There is no active DNR order. home support is adequate. Assessment: 00:59 General: Appears uncomfortable, Behavior is cooperative. Pain: Location: pelvis, mgs abdomen, chest, head Pain currently is 3 out of 10 on a pain scale. Neurological: Level of Consciousness is awake, alert, Oriented to person, place, time. Cardiovascular: Capillary refill < 3 seconds Heart tones S1 S2 present Pulses are 2+ in right radial artery and left radial artery. Respiratory: Airway is patent Respiratory effort is even, unlabored, Respiratory pattern is regular, symmetrical. Respiratory: Airway is patent Respiratory effort is even, unlabored, Respiratory pattern is regular, symmetrical. GI: Abdomen is flat, Bowel sounds present X 4 quads. Abd is tender to palpation in right lower quadrant and left lower quadrant. Derm: Skin is pink, warm & dry. 02:10 General: Appears in no apparent distress, Behavior is cooperative. Neurological: Level mgs of Consciousness is awake, alert, Oriented to person, place, time. Cardiovascular: Capillary refill < 3 seconds. Respiratory: Airway is patent Respiratory effort is even, unlabored, Respiratory pattern is regular, symmetrical. Derm: Skin is pink, warm & dry. 03:07 General: Appears in no apparent distress, Behavior is cooperative. Neurological: Level mgs of Consciousness is awake, alert, Oriented to person, place, time. Cardiovascular: Capillary refill < 3 seconds. Respiratory: Airway is patent Respiratory effort is even, unlabored, Respiratory pattern is regular, symmetrical. Derm: Skin is pink, warm & dry. 04:02 General: Appears in no apparent distress, to be sleeping. Respiratory: Airway is patent mgs Respiratory effort is even, unlabored, Respiratory pattern is regular, symmetrical. Derm: Skin is pink, warm & dry. 04:57 General: Appears in no apparent distress, to be sleeping. Respiratory: Airway is patent mgs Respiratory effort is even, unlabored, Respiratory pattern is regular, symmetrical. Derm: Skin is pink, warm & dry. 05:27 General: Appears in no apparent distress. Neurological: Level of Consciousness is mgs awake, alert, Oriented to person, place, time. Cardiovascular: Capillary refill < 3 seconds. Respiratory: Airway is patent Respiratory effort is even, unlabored, Respiratory pattern is regular, symmetrical. Derm: Skin is pink, warm & dry. 06:18 General: Appears in no apparent distress, to be sleeping. Respiratory: Airway is patent mgs Respiratory effort is even, unlabored, Respiratory pattern is regular, symmetrical. Derm: Skin is pink, warm & dry. 06:25 General: Patient ambulated to assess for safety, patient was able to ambulate without mgs incident. Patient reported being tired and sore. Vital Signs: 09/04 23:18 BP 111 / 68; Pulse 93; Resp 18; Temp 97.8(O); Pulse Ox 98% ; Weight 74.84 kg (R); ct3 Height 5 ft. 4 in. (162.56 cm) (R); Pain 10; 09/05 01:01 BP 106 / 67 (auto/); mgs 01:01 Pulse 58 MON; Pulse Ox 100% ; mgs 01:21 BP 103 / 64 (auto/); mgs 01:21 Pulse 60 MON; Pulse Ox 99% ; mgs 01:41 BP 127 / 64 (auto/); mgs 01:41 Pulse 68 MON; Pulse Ox 99% ; mgs 02:01 BP 122 / 71 (auto/); mgs 02:01 Pulse 72 MON; Pulse Ox 99% ; mgs 02:21 BP 128 / 81 (auto/); mgs 02:21 Pulse 66 MON; Pulse Ox 100% ; mgs 02:41 BP 123 / 82 (auto/); mgs 02:41 Pulse 64 MON; Pulse Ox 100% ; mgs 03:01 BP 109 / 66 (auto/); mgs 03:01 Pulse 64 MON; Pulse Ox 100% ; mgs 03:42 BP 119 / 69 (auto/); mgs 03:42 Pulse 66 MON; Pulse Ox 96% ; mgs 04:02 BP 118 / 69 (auto/); mgs 04:02 Pulse 60 MON; Pulse Ox 95% ; mgs 04:22 BP 108 / 66 (auto/); mgs 04:22 Pulse 64 MON; Pulse Ox 95% ; mgs 04:42 BP 107 / 69 (auto/); mgs 04:42 Pulse 68 MON; Pulse Ox 95% ; mgs 05:02 BP 113 / 72 (auto/); mgs 05:02 Pulse 68 MON; Pulse Ox 96% ; mgs 05:22 BP 110 / 68 (auto/); mgs 05:22 Pulse 62 MON; Pulse Ox 98% ; mgs 05:42 BP 109 / 69 (auto/); mgs 05:42 Pulse 62 MON; Pulse Ox 96% ; mgs 06:02 BP 106 / 69 (auto/); mgs 06:02 Pulse 62 MON; Pulse Ox 95% ; mgs 07:52 BP 105 / 67; Pulse 62; Resp 18; Temp 98.0(O); Pulse Ox 100% on R/A; Pain 2/10; dls 09/04 23:18 Body Mass Index 28.32 (74.84 kg, 162.56 cm) ct3 Vitals: 09/04 23:18 Log In Time: September 04, 2016 at 23:15. ct3 ED Course: 23:17 Patient visited by Marga Llanes PCA. ct3 23:17 Patient moved to Waiting ct3 23:18 [facility] is Private Physician. ct3 23:19 Patient moved to Pre RCE ct3 23:26 Triage Initiated jmb 23:27 Patient moved to Waiting b 09/05 00:47 Patient moved to 6 b 00:56 Rojas Lazcano RN is Primary Nurse. mgs 01:01 Patient visited by Rojas Lazcano RN. mgs 01:04 Carlos Jarvis RPA-C is PHCP. ck7 01:04 Rojas Bansal DO is Attending Physician. ck7 01:09 Patient visited by Carlos Jarvis RPA-C. ck7 01:43 Patient visited by Carlos Jarvis RPA-C. ck7 01:43 Cardiac Marker Panel Sent. mgs 01:43 Hcg, Serum Quantitative Sent. mgs 01:43 MED Profile Sent. mgs 01:43 CBC with Diff Sent. mgs 01:44 Patient visited by Rojas Lazcano RN. mgs 01:44 Inserted saline lock: 20 gauge in right antecubital area and blood collected. The mgs patient tolerated the procedure well. 01:56 Patient moved to Ultrasound dmg 01:57 Assist provider with pelvic exam: Set up pelvic tray. nb2 02:00 Patient visited by Teri Carrera. nb2 02:15 Patient moved to 6 dmg 02:26 Patient visited by Rojas Lazcano RN. mgs 03:07 Patient visited by Roajs Lazcano RN. mgs 03:10 [facility] Payment Agreement was scanned into Zuzu[employer] and attached to record. slh 03:11 US 1st trimester Returned. EDMS 04:02 Patient visited by Rojas Lazcano RN. mgs 04:18 CT Chest Angio R/O PE Returned. EDMS 04:58 Patient visited by Rojas Lazcano RN. mgs 05:30 Patient visited by Rojas Lazcano RN. mgs 06:19 Patient visited by Rojas Lazcano RN. mgs 06:52 [facility] is Referral Physician. mm11 07:03 Report received from Manjeet ROGERS. dls 07:52 Discontinued IV lock intact, bleeding controlled, pressure dressing applied, No dls redness/swelling at site. 07:54 The patient / caregiver is instructed regarding the plan of care and ED course. dls 08:34 EKG-ADULT Returned. EDMS 11:02 T-Sheet-- Draft Copy was scanned into [employer] and attached to record. gb 09/06 14:35 ECG/EKG was scanned into [employer] and attached to record. gb Administered Medications: 09/05 01:50 Drug: NS 0.9% 1000 ml [sodium chloride 0.9 % intravenous solution] Route: IV; Rate: mgs bolus; Site: right antecubital; 02:25 Drug: diphenhydrAMINE 50 mg [diphenhydramine 50 mg/mL injection solution (1 mL)] Route: mv5 IVP; Site: right antecubital; 02:26 Drug: Solu-MEDROL 125 mg [Solu-Medrol 500 mg intravenous solution (125 mg)] Route: IVP; mv5 Site: right antecubital; 05:05 CANCELLED (Other Intervention Used): Meclizine 50 mg PO once mm11 05:21 Drug: LR 1000 ml [lactated ringers intravenous solution] Route: IV; Rate: bolus; Site: mgs right antecubital; 05:21 Drug: Meclizine 25 mg [meclizine 12.5 mg tablet (2 tabs)] Route: PO; mgs 05:21 Drug: Ondansetron 4 mg [ondansetron HCl 2 mg/mL intravenous solution (2 mL)] Route: mgs IVP; Site: right antecubital; Order Results: Lab Order: CBC with Diff; SPEC'M 09/05/16 01:41 Test: WHITE BLOOD COUNT; Value: 6.2; Range: 4.0-10.0; Units: K/mm3; Status: F Test: RED BLOOD COUNT; Value: 4.14; Range: 4.00-5.40; Units: M/mm3; Status: F Test: HEMOGLOBIN; Value: 11.1; Range: 12.0-16.0; Abnormal: Below low normal; Units: g/dl; Status: F Test: HEMATOCRIT; Value: 34.7; Range: 36.0-47.0; Abnormal: Below low normal; Units: %; Status: F Test: MEAN CORPUSCULAR VOLUME; Value: 83.9; Range: 80.0-96.0; Units: fl; Status: F Test: MEAN CORPUSCULAR HEMOGLOBIN; Value: 26.9; Range: 27.0-33.0; Abnormal: Below low normal; Units: pg; Status: F Test: MEAN CORPUSCULAR HGB CONC; Value: 32.0; Range: 32.0-36.5; Units: g/dl; Status: F Test: RED CELL DISTRIBUTION WIDTH; Value: 13.4; Range: 11.5-14.5; Units: %; Status: F Test: PLATELET COUNT, AUTOMATED; Value: 306; Range: 150-450; Units: k/mm3; Status: F Test: NEUTROPHILS %; Value: 55.6; Range: 36.0-66.0; Units: %; Status: F Test: LYMPH %; Value: 32.1; Range: 24.0-44.0; Units: %; Status: F Test: MONO %; Value: 6.5; Range: 0.0-5.0; Abnormal: Above high normal; Units: %; Status: F Test: EOS %; Value: 2.5; Range: 0.0-3.0; Units: %; Status: F Test: BASO %; Value: 0.5; Range: 0.0-1.0; Units: %; Status: F Test: LARGE UNSTAINED CELL %; Value: 2.8; Range: 0.0-4.0; Units: %; Status: F Test: NEUTROPHILS #; Value: 3.5; Range: 1.8-7.7; Units: K/mm3; Status: F Test: LYMPH #; Value: 2.0; Range: 1.5-4.5; Units: K/mm3; Status: F Test: MONO #; Value: 0.4; Range: 0.0-0.8; Units: K/mm3; Status: F Test: EOS #; Value: 0.2; Range: 0.0-0.50; Units: K/mm3; Status: F Test: BASO #; Value: 0.0; Range: 0.0-0.2; Units: K/mm3; Status: F Test: LARGE UNSTAINED CELL #; Value: 0.2; Range: 0.0-0.4; Units: K/mm3; Status: F Lab Order: MED Profile; SPEC'M 09/05/16 01:41 Test: GLUCOSE, FASTING; Value: 95; Range: 70-105; Units: MG/DL; Status: F Test: BLOOD UREA NITROGEN; Value: 10; Range: 7-18; Units: MG/DL; Status: F Test: CREATININE FOR GFR; Value: 0.70; Range: 0.55-1.02; Units: MG/DL; Status: F Test: GLOMERULAR FILTRATION RATE; Value: > 60.0; Range: >60; Status: F Test: SODIUM LEVEL; Value: 144; Range: 136-145; Units: MEQ/L; Status: F Test: POTASSIUM SERUM; Value: 4.0; Range: 3.5-5.1; Units: MEQ/L; Status: F Test: CHLORIDE LEVEL; Value: 108; Range: 98-107; Abnormal: Above high normal; Units: MEQ/L; Status: F Test: CARBON DIOXIDE LEVEL; Value: 30; Range: 21-32; Units: MEQ/L; Status: F Test: ANION GAP; Value: 6; Range: 8-16; Abnormal: Below low normal; Units: MEQ/L; Status: F Test: CALCIUM LEVEL; Value: 8.5; Range: 8.5-10.1; Units: MG/DL; Status: F Test Note: ; Units are mL/min/1.73 m2 Chronic Kidney Disease Staging per NKF: Stage I & II GFR >=60 Normal to Mildly Decreased Stage III GFR 30-59 Moderately Decreased Stage IV GFR 15-29 Severely Decreased Stage V GFR <15 Very Little GFR Left ESRD GFR <15 on ANIMAL CARE TECHNICIAN Lab Order: Type & Screen; [facility] 09/05/16 01:41 Test: BLOOD TYPE; Value: AP; Status: F Test: AB SCREEN GEL MANUAL; Value: NEGATIVE; Status: F Lab Order: Hcg, Serum Quantitative; 09/05/16 01:41 Test: HCG, SERUM QUANTITATIVE; Value: 231; Units: MIU/ML; Status: F Test Note: ; GESTATIONAL AGE APPROXIMATE HCG RANGE (MIU/ML) 0.2-1 WEEK 5-50 1-2 WEEKS 50-500 2-3 WEEKS 100-5,000 3-4 WEEKS 500-10,000 4-5 WEEKS 1,000-50,000 5-6 WEEKS 10,000-100,000 6-8 WEEKS 15,000-200,000 2-3 MONTHS 10,000-100,000 NON FEMALES LESS THAN 3.0 Patient samples may contain human heterophilic antibodies that could react with immunoassays to give falsely elevated or depressed results. This assay has been designed to minimize interference from heterophilic antibodies. Elevated hCG levels have also been associated with trophoblastic disease and nontrophoblastic neoplasms. The possibility of having these diseases should be considered before a diagnosis of is made. This test is not intended for use as a surrogate marker for aiding in the diagnosis or monitoring the treatment of cancer patients. Siemens wireLawyer methodology. Lab Order: Cardiac Marker Panel; SPEC'M 09/05/16 01:41 Test: CPK CREATINE PHOSPHOKINASE; Value: 49; Range: 26-192; Units: U/L; Status: F Test: CK-MB VALUE MASS; Value: 1.2; Range: 0.0-3.6; Units: NG/ML; Status: F Test: MB/CK RELATIVE INDEX; Value: 2.44; Range: < OR =4; Status: F Test: TROPONIN I; Value: < 0.02; Range: < 0.10; Units: NG/ML; Status: F Test Note: ; DIAGNOSIS CRITERIA MMB ng/ml Relative Index (RI) NON-AMI < or = 5 N/A QUACH ZONE > 5 < or = 4 AMI > 5 > 4 Radiology Order: EKG-ADULT Test: EKG-ADULT REASON FOR EXAMINATION: Chest Pain; Stationary ECG Study; [facility] - ED; ; Test Date: 2016-09-05; Pat Name: MATT MACHUCA Department:; Room: -; Gender: F Slots Manager: maria g : 1985 Requested By: ROJAS Keene; Order Number: [id number] Reading MD: Nirmala Diaz; Measurements; Intervals [place]; Rate: 58 P: 33; MN: 137 QRS: 0; QRSD: 76 T: -5; QT: 375; QTc: 369; Interpretive Statements; SINUS BRADYCARDIA; DECREASED RATE 08/09/16; Electronically Signed On 09-05-2016 8:32:34 EST by Nirmala Diaz; Radiology Order: US 1st trimester Test: US 1st trimester REASON FOR EXAMINATION: R/O RPOC; ; CLINICAL HISTORY: Suspected retained products of conception.; TECHNIQUE: Transabdominal ultrasound of the pelvis was performed.; FINDINGS:; Retroverted uterus measuring 8.6x4.4x6.2 cm.; Normal endometrial thickness measuring 11.1 mm.; No evidence of retained products of conception.; Normal right ovary.; Normal left ovary.; IMPRESSION:; Smooth endometrial lining without retained products of conception.; ; Radiology Order: CT Chest Angio R/O PE Test: CT Chest Angio R/O PE REASON FOR EXAMINATION: Shortness of Breath; ; CLINICAL HISTORY: Dyspnea, exclude PE.; TECHNIQUE: Multiple incremental axial, coronal and oblique images are obtained from the thoracic inle; t to the upper abdomen. Intravenous contrast material was administered as per pulmonary embolism prot; ocol.; COMMENTS:; There is excellent opacification of pulmonary arterial system without evidence for pulmonary embolism; . Aorta is of normal caliber without evidence for dissection or aneurysm.; There is no evidence of pleural or parenchymal mass. Bilateral basilar atelectatic pulmonary changes; and multifocal basilar air trapping. There are no pleural effusions. There is no evidence of hilar or; mediastinal lymphadenopathy. The heart and great vessels are within normal limits.; Images of the upper abdomen demonstrate no evidence of adrenal mass.; The bony structures are free of lytic or blastic lesions.; IMPRESSION:; No evidence for pulmonary embolism.; Multifocal basilar air-trapping.; Thank you for your kind referral of this patient.; ; Outcome: 06:52 Discharge ordered by Provider. mm11 07:53 Discharge Assessment: Patient awake, alert and oriented x 3. No cognitive and/or dls functional deficits noted. Patient verbalized understanding of disposition instructions. patient administered narcotics - no. The following High Risk Discharge criteria are identified: None. Discharged to home ambulatory. Condition: stable Condition: improved. Discharge instructions given to patient, Instructed on discharge instructions, follow up and referral plans. Demonstrated understanding of instructions, Pt was receptive of discharge instructions/ teaching. No special radiology studies were completed. Property sent home with patient. 07:54 Patient left the ED. dls Signatures: Dispatcher [facility] Codi Davis RN RN dls Gunn, Deanne dmg Barnhardt, Ioana, Reg Reg gb Rojas Bansal, DO DO mm11 Llanes, Marga, FORECLOSURE CLERK FORECLOSURE CLERK ct3 Carlos Jarvis, RPA-C [id number] Hasmukh Garza,RN RN Roselyn Bejarano Matthew,RN RN mgs Teri Carrera2 Nora Robertson RN RN mv5 Corrections: (The following items were deleted from the chart) 02:09 01:43 TYPE & SCREEN+BBK sent. mgs EDMS Chart Complete MTDD
== END 2016-09-05 07:54 | disposition home or self-care (01) ==
LOC: M ED 23:16
DX: E86.1 Hypovolemia (principal); N93.9 Abnormal uterine and vaginal bleeding, unspecified; J45.909 Unspecified asthma, uncomplicated; G43.909 Migraine, unspecified, not intractable, without status migrainosus; Z86.711 Personal history of pulmonary embolism; Z79.01 Long term (current) use of anticoagulants; Z79.51 Long term (current) use of inhaled steroids; Z88.5 Allergy status to narcotic agent; Z91.040 Latex allergy status; Z91.030 Bee allergy status; Z91.041 Radiographic dye allergy status
CPT/HCPCS: 36415; 71275; 76801; 80048; 82550; 82553; 84702; 85025; 86850; 93005; 93976; 96374; 96375; 99284; J1200; J2405; J2930; Q9967

== ENCOUNTER 2016-09-28 09:39 | Emergency (ER) | payer OTHER ==
[~2016-09-28] VITALS: Ht 162.6 cm; Wt 74.8 kg
[2016-09-28] MEDS ORDERED: ELIQ2.5T PO (10:10)
[2016-09-28] MEDS ORDERED: ADVA230A INH (10:13)
[2016-09-28] MEDS ORDERED: PROA1AER INH (10:13)
--- NOTE | 2016-09-28 12:08 | REP ---
CAROTID ULTRASOUND: Real-time ultrasound evaluation and duplex Doppler interrogation of the extracranial carotid vasculature is performed. There is not significant plaquing or narrowing in both carotid bulbs, internal and external carotid arteries. Luminal narrowing is certainly less than 50%. There is no evidence of hemodynamically significant stenosis of either internal carotid artery. Normal flow velocities are seen. The vertebral arteries demonstrate normal direction of flow. RIGHT LEFT Peak systolic velocity ICA 90.7 cm/s 83.6 cm/s End diastolic velocity ICA 42.7 cm/s 39.3 cm/s Peak systolic velocity CCA 87.6 cm/s 82.4 cm/s Peak systolic velocity ECA 86.8 cm/s 55.3 cm/s ICA/CCA ratio 1.04 1.01 IMPRESSION: Bilateral luminal narrowing of the internal carotid arteries less than 50%. No evidence of hemodynamically significant stenosis. Signed by Tree Tan MD 09/28/2016 11:59 A
[2016-09-28 12:16] VITALS: BP 111/60
== END 2016-09-28 12:26 | disposition home or self-care (01) ==
LOC: M ED 10:37
DX: M54.12 Radiculopathy, cervical region (principal); K58.9 Irritable bowel syndrome, unspecified; Z86.711 Personal history of pulmonary embolism; Z79.01 Long term (current) use of anticoagulants; Z79.51 Long term (current) use of inhaled steroids; Z88.5 Allergy status to narcotic agent; Z91.041 Radiographic dye allergy status; Z91.040 Latex allergy status; Z91.030 Bee allergy status

== ENCOUNTER 2016-10-04 09:27 | Emergency (ER) | payer OTHER ==
[~2016-10-04] VITALS: Ht 162.6 cm; Wt 74.8 kg
[~2016-10-04 09:27] MED LIST changes: +ADVA230A INH; +ELIQ2.5T PO; +PROA1AER INH
[2016-10-04 09:36] VITALS: BP 118/69
--- NOTE | 2016-10-04 15:00 | REP ---
Pelvic sonogram: History: Pelvic pain. Beta HCG level still 23, 4-week status post spontaneous AB. Vaginal bleeding. Findings: Transabdominal and transvaginal scanning are performed. Uterus is retroverted and somewhat retroflexed. Its dimensions are 9.2 x 4.1 x 5.7 cm. Endometrial echo is 1.8 cm thick. The endometrium is somewhat heterogeneous and there is moving echogenic debris within the endometrium. No intrauterine gestation or retained products of conception is appreciated. There is a trace of fluid in the cul-de-sac. Visualized bladder nugent are smooth. A normal right ovary is seen with dimensions of 1.6 x 1.2 x 1.5 cm. Its Doppler flow is normal, resistive index is 0.6. The left ovarian dimensions are 2.6 x 1.4 x 2.4 cm. There is a hypoechoic cyst in the left adnexa measuring 1.3 x 1.0 x 1.0 cm. The Doppler resistive index for the left ovary is normal at 0.5. Impression: Retroverted uterus. Heterogeneous mild thickening of the endometrium; no definite retained products of conception seen. 1.3 cm hypoechoic cyst left ovary. Trace of fluid in the cul-de-sac. Signed by Loki Pacheco MD 10/04/2016 03:18 P
[2016-10-04] MEDS ORDERED: TRAM50TA2 PO (15:40)
== END 2016-10-04 15:53 | disposition home or self-care (01) ==
LOC: EDBD 09:27 → M ED 10:17
DX: N83.202 Unspecified ovarian cyst, left side (principal); R79.89 Other specified abnormal findings of blood chemistry; G47.00 Insomnia, unspecified; G43.909 Migraine, unspecified, not intractable, without status migrainosus; Z79.01 Long term (current) use of anticoagulants; Z79.51 Long term (current) use of inhaled steroids; Z91.030 Bee allergy status; Z91.040 Latex allergy status; Z88.5 Allergy status to narcotic agent; Z91.041 Radiographic dye allergy status

== ENCOUNTER → 2016-10-09 | Outpatient (CLI) | payer OTHER ==
[~2016-10-09] MED LIST changes: +TRAM50TA2 PO
[2016-10-09 12:50] LABS: BASO % 0.6 % (0.0-1.0); EOS # 0.1 K/mm3 (0.0-0.50); LARGE UNSTAINED CELL # 0.1 K/mm3 (0.0-0.4); LARGE UNSTAINED CELL % 1.6 % (0.0-4.0); LYMPH # 1.7 K/mm3 (1.5-4.5); LYMPH % 26.8 % (24.0-44.0); MEAN CORPUSCULAR HEMOGLOBIN 26.7 pg (27.0-33.0); MEAN CORPUSCULAR HGB CONC 32.3 g/dl (32.0-36.5); MEAN CORPUSCULAR VOLUME 82.6 fl (80.0-96.0); MONO # 0.3 K/mm3 (0.0-0.8); MONO % 4.2 % (0.0-5.0); NEUTROPHILS # 4.1 K/mm3 (1.8-7.7); NEUTROPHILS % 64.8 % (36.0-66.0); PLATELET COUNT, AUTOMATED 335 k/mm3 (150-450); RED CELL DISTRIBUTION WIDTH 13.5 % (11.5-14.5); WHITE BLOOD COUNT 6.2 K/mm3 (4.0-10.0)
[2016-10-09 13:17] LABS: ERYTHROCYTE SEDIMENTATION RATE 23 mm/hr (0-20)
[2016-10-09 13:20] LABS: ALBUMIN 4.1 GM/DL (3.2-5.2); ALBUMIN/GLOBULIN RATIO 1.14 (1.00-1.93); ALKALINE PHOSPHATASE 90 U/L (45-117); ALT/SGPT 18 U/L (12-78); ANION GAP 8 MEQ/L (8-16); AST/SGOT 17 U/L (15-37); BILIRUBIN,TOTAL 0.3 MG/DL (0.2-1.0); BLOOD UREA NITROGEN 17 MG/DL (7-18); CALCIUM LEVEL 9.6 MG/DL (8.5-10.1); CARBON DIOXIDE LEVEL 30 MEQ/L (21-32); CHLORIDE LEVEL 103 MEQ/L (98-107); CREATININE FOR GFR 0.82 MG/DL (0.55-1.02); GLOMERULAR FILTRATION RATE > 60.0 (>60); GLUCOSE, FASTING 124 MG/DL (70-105); POTASSIUM SERUM 4.3 MEQ/L (3.5-5.1); SODIUM LEVEL 141 MEQ/L (136-145); TOTAL PROTEIN 7.7 GM/DL (6.4-8.2)
== END ==
LOC: M LAB 12:22
PROVIDERS: ATTEND Internal Medicine Rheumatology
DX: Z51.81 Encounter for therapeutic drug level monitoring (principal); Z79.899 Other long term (current) drug therapy; M35.9 Systemic involvement of connective tissue, unspecified

== ENCOUNTER → 2016-10-20 | Outpatient (CLI) | payer OTHER ==
--- NOTE | 2016-10-20 12:04 | REP ---
MRI CERVICAL SPINE WITHOUT CONTRAST: HISTORY: Left facial numbness. A disc bulge is present at the C4-5 level. There is minimal effacement of the thecal sac without spinal cord compression. The C4 neural foramina are patent. Disc bulge is present at the C5-6 level. There is minimal effacement of the thecal sac without spinal cord compression. The C5 neural foramina are patent. There is no other disc bulge or herniation. The remaining neural foramina are patent. The spinal cord is normal in signal intensity. Normal signal intensity is present in the cervical vertebral bodies. IMPRESSION: There is cervical spondylosis at the C4-5 and C5-6 levels without spinal cord compression. Signed by Leon Hardy MD 10/20/2016 12:06 P
--- NOTE | 2016-10-20 12:09 | REP ---
MRI LUMBAR SPINE WITHOUT CONTRAST: HISTORY: Left facial numbness. Decreased signal intensity on T2-weighted images is present in the L5-S1 intervertebral disc. This represents disc degeneration. There is no disc bulge or herniation at the L1-2 through L4-5 levels. The nerves exit the neural foramina without compression. A diffuse disc bulge is present at the L5-S1 level. There is minimal compression of the thecal sac. The L5 nerves exit the neural foramina without compression. The conus medullaris is normal in appearance terminating at the level of the L1-2 intervertebral disc. Increased signal intensity on T2-weighted images is present at the end plates of the T12, L1 and S1 vertebral bodies. This represents degenerative change. IMPRESSION: Diffuse disc bulge at the L5-S1 level with minimal thecal sac compression. Signed by Leon Hardy MD 10/20/2016 12:22 P
--- NOTE | 2016-10-20 12:36 | REP ---
MR BRAIN WITHOUT CONTRAST: HISTORY: Dizziness. COMPARISON: CT 10/15/2016. A single punctate focus of increased signal intensity on T2-weighted images is present in the subcortical white matter of the left frontal lobe. There is no intraparenchymal hemorrhage, infarct, mass, or midline shift. The sella turcica is partially empty. The ventricular system is normal in appearance. There is no extracerebral collection. The sinuses are clear. IMPRESSION: There is a single punctate focus of increased signal intensity in the subcortical white matter of the left frontal lobe. This is a nonspecific finding. Signed by Leon Hardy MD 10/20/2016 12:42 P
--- NOTE | 2016-10-24 10:59 | REP ---
MRI THORACIC SPINE WITHOUT CONTRAST: HISTORY: Occipital headache. There is no disc bulge or herniation. The spinal canal and neural foramina are patent. The spinal cord is normal in signal intensity. A hemangioma is present in the T10 vertebral body. Increased signal intensity on T2-weighted images is present in the end plates of several mid and lower thoracic vertebral bodies. This represents degenerative change. IMPRESSION: There is no disc bulge or herniation. Signed by Leon Hardy MD 10/24/2016 11:32 A
== END ==
LOC: M RAD 09:38
PROVIDERS: ATTEND Psychiatry & Neurology Neurology
DX: R42 Dizziness and giddiness (principal); M35.9 Systemic involvement of connective tissue, unspecified; Z79.899 Other long term (current) drug therapy; M47.812 Spondylosis without myelopathy or radiculopathy, cervical region; M51.17 Intervertebral disc disorders with radiculopathy, lumbosacral region

== ENCOUNTER → 2016-10-20 | Outpatient (CLI) | payer OTHER ==
[2016-10-23 08:06] LABS: Lyme Disease IgG Ab 18 kDa Ban Absent (.); Lyme Disease IgG Ab 23 kDa Ban Absent (.); Lyme Disease IgG Ab 28 kDa Ban Absent (.); Lyme Disease IgG Ab 30 kDa Ban Absent (.); Lyme Disease IgG Ab 39 kDa Ban Absent (.); Lyme Disease IgG Ab 41 kDa Ban Absent (.); Lyme Disease IgG Ab 45 kDa Ban Absent (.); Lyme Disease IgG Ab 58 kDa Ban Absent (.); Lyme Disease IgG Ab 66 kDa Ban Absent (.); Lyme Disease IgG Ab 93 kDa Ban Absent (.); Lyme Disease IgG West Blot Int Negative (.); Lyme Disease IgG/IgM Antibodie <0.91 ISR (0.00-0.90); Lyme Disease IgM Ab 23 kDa Ban Present (.); Lyme Disease IgM Ab 39 kDa Ban Absent (.); Lyme Disease IgM Ab 41 kDa Ban Absent (.); Lyme Disease IgM Ab Quantitati 1.15 index (0.00-0.79); Lyme Disease IgM West Blot Int Negative (.)
== END ==
LOC: M LAB 09:51
PROVIDERS: ATTEND Internal Medicine Rheumatology
DX: M35.9 Systemic involvement of connective tissue, unspecified (principal); Z79.899 Other long term (current) drug therapy

== ENCOUNTER 2016-10-24 17:57 | Emergency (ER) | payer OTHER ==
[~2016-10-24] VITALS: Ht 162.6 cm; Wt 74.8 kg
[2016-10-24 20:53] LABS: ALBUMIN 4.1 GM/DL (3.2-5.2); ALBUMIN/GLOBULIN RATIO 1.24 (1.00-1.93); ALKALINE PHOSPHATASE 75 U/L (45-117); ALT/SGPT 15 U/L (12-78); ANION GAP 5 MEQ/L (8-16); AST/SGOT 12 U/L (15-37); BILIRUBIN,DIRECT < 0.1 MG/DL (0.0-0.2); BILIRUBIN,TOTAL 0.2 MG/DL (0.2-1.0); BLOOD UREA NITROGEN 12 MG/DL (7-18); CALCIUM LEVEL 9.5 MG/DL (8.5-10.1); CARBON DIOXIDE LEVEL 30 MEQ/L (21-32); CHLORIDE LEVEL 105 MEQ/L (98-107); CREATININE FOR GFR 0.68 MG/DL (0.55-1.02); GLOMERULAR FILTRATION RATE > 60.0 (>60); GLUCOSE, FASTING 94 MG/DL (70-105); MEAN CORPUSCULAR HEMOGLOBIN 27.3 pg (27.0-33.0); MEAN CORPUSCULAR HGB CONC 32.6 g/dl (32.0-36.5); POTASSIUM SERUM 4.2 MEQ/L (3.5-5.1); SODIUM LEVEL 140 MEQ/L (136-145); TOTAL PROTEIN 7.4 GM/DL (6.4-8.2)
--- NOTE | 2016-10-24 21:00 | REPUSA ---
Clinical history: Pain. Comparison: CT, 10/22/2016. Findings: Real-time transabdominal and transvaginal ultrasound images of the pelvis were obtained. An anteverted uterus is noted, measuring 7.8 x 5.1 x 6.4 cm. The uterus demonstrates normal echotexture and echogenicity. The endometrial stripe measures 13 mm and is within normal limits. The right ovary measures 3.0 x 2.3 x 2.3 cm. The left ovary measures 2.6 x 2.9 x 2.3 cm. No adnexal masses are seen. Color Doppler flow is seen within both ovaries. There is no evidence of free fluid. Impression: Unremarkable ultrasound examination of the pelvis.
[2016-10-24 21:43] VITALS: BP 114/75
== END 2016-10-24 21:49 | disposition home or self-care (01) ==
LOC: M ED 19:23
DX: R10.9 Unspecified abdominal pain (principal); Z88.5 Allergy status to narcotic agent; Z91.040 Latex allergy status; Z91.041 Radiographic dye allergy status; Z79.01 Long term (current) use of anticoagulants; Z79.51 Long term (current) use of inhaled steroids

== ENCOUNTER 2016-10-29 07:07 | Emergency (ER) | payer OTHER ==
[~2016-10-29] VITALS: Ht 162.6 cm; Wt 77.1 kg
[2016-10-29] MEDS ORDERED: APIXABAN 2.5 MG TAB (ELIQUIS) PO ONE (09:00)
[2016-10-29 12:50] VITALS: BP 112/74
== END 2016-10-29 12:51 | disposition home or self-care (01) ==
LOC: M ED 09:43
DX: F32.9 Major depressive disorder, single episode, unspecified (principal); Z88.5 Allergy status to narcotic agent; Z91.030 Bee allergy status; Z91.040 Latex allergy status; Z91.041 Radiographic dye allergy status; Z79.51 Long term (current) use of inhaled steroids; Z79.899 Other long term (current) drug therapy

== ENCOUNTER 2016-11-07 03:42 | Emergency (ER) | payer OTHER ==
[~2016-11-07] VITALS: Ht 162.6 cm; Wt 77.1 kg
[2016-11-07] MEDS ORDERED: ONDANSETRON 4 MG ORAL DISINTEGRATING TAB (S0181) SL PRN (04:45)
[2016-11-07] MEDS ORDERED: ZOFR4TAB3 PO (05:16)
[2016-11-07 05:36] VITALS: BP 101/64
--- NOTE | 2016-11-08 08:07 | REP ---
Clinical: Cough . Comparison: 10/29/2016 . Technique: PA and lateral. Findings: The mediastinum and cardiac silhouette are normal. The lung landa are clear and without acute consolidation, effusion, or pneumothorax. The skeletal structures are intact and normal. Impression: 1. No acute cardiopulmonary process. Signed by Adolph Jean MD 11/08/2016 07:59 A
== END 2016-11-07 05:37 | disposition home or self-care (01) ==
LOC: M ED 05:13
DX: R05 Cough (principal); R11.0 Nausea; Z79.899 Other long term (current) drug therapy; Z79.51 Long term (current) use of inhaled steroids; Z79.01 Long term (current) use of anticoagulants; Z88.5 Allergy status to narcotic agent; Z91.041 Radiographic dye allergy status; Z91.030 Bee allergy status; Z91.040 Latex allergy status

== ENCOUNTER 2016-11-10 14:40 | Emergency (ER) | payer OTHER ==
[~2016-11-10] VITALS: Ht 162.6 cm; Wt 77.1 kg
[~2016-11-10 14:40] MED LIST changes: +ZOFR4TAB3 PO
[2016-11-10] MEDS ORDERED: NS 1,000 ML IV ONE (16:00)
[2016-11-10 16:22] LABS: BASO % 0.3 % (0.0-1.0); EOS # 0.2 K/mm3 (0.0-0.50); EOS % 1.8 % (0.0-3.0); LARGE UNSTAINED CELL # 0.1 K/mm3 (0.0-0.4); LARGE UNSTAINED CELL % 1.1 % (0.0-4.0); LYMPH # 1.8 K/mm3 (1.5-4.5); LYMPH % 19.5 % (24.0-44.0); MEAN CORPUSCULAR HEMOGLOBIN 27.3 pg (27.0-33.0); MEAN CORPUSCULAR VOLUME 82.7 fl (80.0-96.0); MONO # 0.4 K/mm3 (0.0-0.8); MONO % 4.5 % (0.0-5.0); NEUTROPHILS # 6.4 K/mm3 (1.8-7.7); NEUTROPHILS % 72.8 % (36.0-66.0); PLATELET COUNT, AUTOMATED 342 k/mm3 (150-450); RED CELL DISTRIBUTION WIDTH 13.4 % (11.5-14.5); WHITE BLOOD COUNT 8.7 K/mm3 (4.0-10.0)
[2016-11-10 16:37] LABS: CONTROL LINE HCG INT CTR LINE PRESENT
[2016-11-10 16:48] LABS: ALBUMIN 4.3 GM/DL (3.2-5.2); ALBUMIN/GLOBULIN RATIO 1.19 (1.00-1.93); ALKALINE PHOSPHATASE 83 U/L (45-117); ALT/SGPT 19 U/L (12-78); ANION GAP 7 MEQ/L (8-16); AST/SGOT 21 U/L (15-37); BILIRUBIN,DIRECT < 0.1 MG/DL (0.0-0.2); BILIRUBIN,TOTAL 0.2 MG/DL (0.2-1.0); BLOOD UREA NITROGEN 12 MG/DL (7-18); CALCIUM LEVEL 8.9 MG/DL (8.5-10.1); CARBON DIOXIDE LEVEL 28 MEQ/L (21-32); CHLORIDE LEVEL 105 MEQ/L (98-107); CREATININE FOR GFR 0.79 MG/DL (0.55-1.02); GLOMERULAR FILTRATION RATE > 60.0 (>60); GLUCOSE, FASTING 99 MG/DL (70-105); POTASSIUM SERUM 4.3 MEQ/L (3.5-5.1); SODIUM LEVEL 140 MEQ/L (136-145); TOTAL PROTEIN 7.9 GM/DL (6.4-8.2)
--- NOTE | 2016-11-10 17:22 | REP ---
Head CT without contrast: History: Altered mental status. Comparison study: October 15, 2016. CT findings: Bone window settings demonstrate an intact bony calvarium. There is no evidence of skull fracture or incidental bony calvarial lesion. The visualized paranasal sinuses appear clear. No intraorbital abnormality is seen. On soft tissue window setting images; the lateral, third, and fourth ventricles are normal in size and position. Tan-white differentiation pattern is normal above and below the tentorium. There are is no evidence of intracranial hemorrhage. No mass, edema, infarction, or midline shift is seen. No extra-axial fluid collection is appreciated. Impression: Negative noncontrast head CT. Signed by Loki Pacheco MD 11/10/2016 05:13 P
--- NOTE | 2016-11-10 17:23 | REP ---
Chest x-ray: Two views. History: Altered mental status. . Comparison study: November 07, 2016. . Findings: The lungs are well inflated and free of infiltrate. The pleural angles are sharp. The heart size is normal. Pulmonary vasculature is not increased. No significant bony abnormality is seen. Impression: Negative chest x-ray. Signed by Loki Pacheco MD 11/10/2016 05:13 P
[2016-11-10 17:40] LABS: METHADONE URINE NEGATIVE (NEGATIVE)
[2016-11-10] MEDS ORDERED: MECL-86 PO (18:08)
[2016-11-10 18:39] VITALS: BP 117/76
--- NOTE | 2016-11-11 20:16 | ECGEPIP ---
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
== END 2016-11-10 18:42 | disposition home or self-care (01) ==
LOC: M ED 16:18
DX: R53.81 Other malaise (principal); R53.83 Other fatigue; G43.909 Migraine, unspecified, not intractable, without status migrainosus; Z88.5 Allergy status to narcotic agent; Z91.030 Bee allergy status; Z91.040 Latex allergy status; Z91.041 Radiographic dye allergy status; Z79.899 Other long term (current) drug therapy
CPT/HCPCS: 36415; 70450; 71020; 80048; 80076; 80306; 81001; 82550; 82553; 84443; 84703; 85025; 87088; 87186; 93005; 93041; 94760; 99284; G0480

== ENCOUNTER 2016-12-09 08:38 | Emergency (ER) | payer OTHER ==
[~2016-12-09] VITALS: Ht 165.1 cm; Wt 77.1 kg
[~2016-12-09 08:38] MED LIST changes: +MECL-86 PO
[2016-12-09] MEDS ORDERED: ONDANSETRON 4 MG ORAL DISINTEGRATING TAB (S0181) PO ONE (09:45)
[2016-12-09] MEDS ORDERED: GI COCKTAIL 50ML BTL(HYOSCYAMINE/MAALOX/LIDOCAINE VISCOUS)(1:3:1) PO ONE (09:45)
--- NOTE | 2016-12-09 10:55 | REP ---
Clinical: Lower abdominal pain. Comparison: 10/22/2016. Findings: Lung bases clear. Visualized heart and pericardium normal. Liver, spleen, pancreas, gallbladder, bilateral adrenal glands and kidneys are normal. There is no evidence for hydroureteronephrosis, perinephric stranding, or obstructing ureteral calculi. 2 cm fat containing periumbilical hernia noted. The enteric system is without obstruction or acute inflammatory process. Normal terminal ileum and appendix identified in the right lower quadrant. Pelvis demonstrates normal bladder and age-appropriate uterus/adnexa. No pelvic fluid or ascites. No free air. No obvious adenopathy. Abdominal aorta without aneurysm. Musculoskeletal structures are grossly intact. Impression: Normal noncontrast CT of the abdomen and pelvis. Incidental 2 cm fat containing periumbilical hernia. Signed by Adolph Jean MD 12/09/2016 10:47 A
[2016-12-09] MEDS ORDERED: BENT20TA PO (11:38)
[2016-12-09 11:48] VITALS: BP 101/63
== END 2016-12-09 11:53 | disposition home or self-care (01) ==
LOC: M ED 09:45
DX: K42.9 Umbilical hernia without obstruction or gangrene (principal); R10.84 Generalized abdominal pain; K58.9 Irritable bowel syndrome, unspecified; N92.6 Irregular menstruation, unspecified; Z86.711 Personal history of pulmonary embolism; Z88.5 Allergy status to narcotic agent; Z91.030 Bee allergy status; Z79.899 Other long term (current) drug therapy

== ENCOUNTER → 2017-01-18 | Outpatient (CLI) | payer OTHER ==
[~2017-01-18] MED LIST changes: +BENT20TA PO; +MAGN400T2; +METHACHOLINE KIT (J7674) INH ONE; +ONDA4TAB5; -PROA1AER INH; +PROAAER10 INH; +SYMB16INH INH
--- NOTE | 2017-01-18 10:29 | PFTRPT ---
Tech: Abimbola OSULLIVAN RRT Age: 31 Sex: Female Race: Height: 63.00 Inches Weight: 169.00 Lbs BSA: 1.80 Diagnosis: R06.02 METHACHOLINE CHALLENGE REPORT: ORDERING PROVIDER: ISABELLA Prather DATE OF SERVICE: 01/18/17 INTERPRETATION: The study was of excellent technical quality. Under protocol, methacholine was administered. Some mild difficulty with effort. At a dose of 0.25 mg (1.375 CDUs), a 26% decline in the FEV1 was noted. The PC20 of 0.09 is significant. Flow rates returned to baseline post bronchodilator administration. IMPRESSION: Positive methacholine challenge study. MTDD
== END ==
LOC: M CARPUL 09:35
PROVIDERS: ATTEND Nurse Practitioner Adult Health
DX: R06.02 Shortness of breath (principal); R94.2 Abnormal results of pulmonary function studies

== ENCOUNTER 2017-02-16 13:00 | Outpatient (RCR) | payer OTHER ==
[~2017-02-16 13:00] MED LIST changes: -MAGN400T2; -METHACHOLINE KIT (J7674) INH ONE; -ONDA4TAB5; -SYMB16INH INH
== END 2017-02-20 ==
LOC: M PT 13:00
PROVIDERS: ATTEND Otolaryngology
DX: Z51.89 Encounter for other specified aftercare (principal); M26.602 Left temporomandibular joint disorder, unspecified; R52 Pain, unspecified

== ENCOUNTER 2017-02-28 01:01 | Emergency (ER) | payer OTHER ==
[2017-02-28 01:06] VITALS: BP 125/84
[2017-02-28] MEDS ORDERED: SYMB16INH INH (01:10)
== END 2017-02-28 05:07 | disposition left against medical advice (07) ==
LOC: M ED 01:01
DX: R42 Dizziness and giddiness (principal); Z53.29 Procedure and treatment not carried out because of patient's decision for other reasons

== ENCOUNTER 2017-03-02 11:57 | Emergency (ER) | payer OTHER ==
[~2017-03-02] VITALS: Ht 165.1 cm; Wt 77.2 kg
[~2017-03-02 11:57] MED LIST changes: +SYMB16INH INH
[2017-03-02] MEDS ORDERED: MAGN400T2 (12:05)
[2017-03-02] MEDS ORDERED: ONDA4TAB5 (12:05)
[2017-03-02] MEDS ORDERED: NS 1,000 ML IV ONE (13:15)
[2017-03-02 13:35] LABS: CONTROL LINE UCG INT CTR LINE PRESENT
[2017-03-02 13:41] LABS: BASO % 0.5 % (0.0-1.0); EOS # 0.1 K/mm3 (0.0-0.50); EOS % 1.7 % (0.0-3.0); LARGE UNSTAINED CELL # 0.1 K/mm3 (0.0-0.4); LARGE UNSTAINED CELL % 1.2 % (0.0-4.0); LYMPH # 1.7 K/mm3 (1.5-4.5); LYMPH % 20.4 % (24.0-44.0); MEAN CORPUSCULAR HEMOGLOBIN 27.2 pg (27.0-33.0); MEAN CORPUSCULAR HGB CONC 32.1 g/dl (32.0-36.5); MEAN CORPUSCULAR VOLUME 84.8 fl (80.0-96.0); MONO # 0.4 K/mm3 (0.0-0.8); MONO % 4.7 % (0.0-5.0); NEUTROPHILS # 5.5 K/mm3 (1.8-7.7); NEUTROPHILS % 71.5 % (36.0-66.0); PLATELET COUNT, AUTOMATED 323 k/mm3 (150-450); RED CELL DISTRIBUTION WIDTH 14.4 % (11.5-14.5); WHITE BLOOD COUNT 7.8 K/mm3 (4.0-10.0)
[2017-03-02 14:12] LABS: ANION GAP 7 MEQ/L (8-16); BLOOD UREA NITROGEN 7 MG/DL (7-18); CALCIUM LEVEL 9.1 MG/DL (8.5-10.1); CARBON DIOXIDE LEVEL 27 MEQ/L (21-32); CHLORIDE LEVEL 108 MEQ/L (98-107); CREATININE FOR GFR 0.65 MG/DL (0.55-1.02); GLOMERULAR FILTRATION RATE > 60.0 (>60); GLUCOSE, FASTING 80 MG/DL (70-105); POTASSIUM SERUM 4.3 MEQ/L (3.5-5.1); SODIUM LEVEL 142 MEQ/L (136-145)
[2017-03-02 14:32] VITALS: BP 111/71
--- NOTE | 2017-03-02 20:59 | ECGEPIP ---
Stationary ECG Study [facility] - ED Test Date: 2017-03-02 Pat Name: MATT MACHUCA Department: Room: - Gender: F [employer] Bed[employer] Tester: perlita : 1985 Requested By: CARRI Bright PA-C Order Number: [id number] Reading MD: Nirmala Diaz Measurements Intervals [place] Rate: 63 P: 34 IA: 122 QRS: 6 QRSD: 81 T: 1 QT: 371 QTc: 381 Interpretive Statements SINUS RHYTHM DECREASED RATE 11/10/16 Electronically Signed On 03-02-2017 20:59:10 EDT by Nirmala Diaz
== END 2017-03-02 14:45 | disposition home or self-care (01) ==
LOC: M ED 11:57
DX: R53.1 Weakness (principal); R10.9 Unspecified abdominal pain; R11.0 Nausea; K58.9 Irritable bowel syndrome, unspecified; J45.909 Unspecified asthma, uncomplicated; G43.909 Migraine, unspecified, not intractable, without status migrainosus; F41.9 Anxiety disorder, unspecified; F32.9 Major depressive disorder, single episode, unspecified; Z86.711 Personal history of pulmonary embolism; Z91.030 Bee allergy status; Z91.040 Latex allergy status; Z88.5 Allergy status to narcotic agent; Z91.041 Radiographic dye allergy status

== ENCOUNTER 2017-03-07 11:28 | Outpatient (RCR) | payer OTHER ==
[~2017-03-07 11:28] MED LIST changes: +MAGN400T2; +ONDA4TAB5
== END 2017-03-23 | disposition home or self-care (01) ==
LOC: M PT 11:28
PROVIDERS: ATTEND Otolaryngology
DX: Z51.89 Encounter for other specified aftercare (principal); M26.602 Left temporomandibular joint disorder, unspecified; R52 Pain, unspecified

== ENCOUNTER 2023-02-22 12:31 | Emergency (ER) | payer OTHER, SELFPAY ==
[~2023-02-22] VITALS: Ht 162.6 cm; Wt 79.1 kg
[2023-02-22 12:31] VITALS: BP 154/89; TEMP 98; O2SAT 100
[~2023-02-22 12:31] MED LIST changes: +ONDA-83; -ONDA4TAB5; +TIZA2CAP PO; -TIZA2CAP3 PO; -TOPI25CA PO; +TOPI25CA5 PO; +ZOFR4TAB14 PO; -ZOFR4TAB3 PO
== END 2023-02-22 14:08 | disposition left against medical advice (07) ==
LOC: M ED 12:31
DX: Z53.21 Procedure and treatment not carried out due to patient leaving prior to being seen by health care provider (principal)

== ENCOUNTER → 2023-03-13 | Outpatient (REF) | LOC: M LAB 14:46 | PROVIDERS: ATTEND Nurse Practitioner Adult Health | DX: Z00.00 Encounter for general adult medical examination without abnormal findings (principal) ==